=== PATIENT | female | born 1945 | race Caucasian/White ===

== ENCOUNTER 2017-01-09 07:36 | Inpatient (IN) | payer MEDICARE, MEDICAID ==
[2017-01-09] VITALS (12 sets, daily range): BP systolic 104–157; BP diastolic 42–67; PULSE 101–111; RESP 16–20; TEMP 97.4–98.1; O2SAT 91–98
[~2017-01-09] VITALS: Ht 157.5 cm; Wt 76.8 kg
[~2017-01-09 07:36] MED LIST: AMBI5TAB PO; CYMB30CA PO; DEPA500T3 PO; ERGO50000 PO; FIORTAB4 PO; LASI20TA PO; LORA-392 PO; LORA-474 PO; MELO15TA2 PO; OMEP20CA5 PO; PERC7.5T13 PO; PREM0.622 PO; SUCR1TAB6 PO; SYNT88TA PO
[2017-01-09] MEDS ORDERED: MOTR200T4 PO (08:03)
[2017-01-09] MEDS ORDERED: CLAR10CA3 PO (08:03)
[2017-01-09] MEDS ORDERED: LEVO-168 PO (08:03)
[2017-01-09] MEDS ORDERED: ATOR1TAB18 PO (08:03)
[2017-01-09] MEDS ORDERED: ZETI10TA5 PO (08:03)
[2017-01-09] MEDS ORDERED: OMEP40CA2 PO (08:03)
[2017-01-09] MEDS ORDERED: GABA300C5 PO (08:03)
[2017-01-09] MEDS ORDERED: RANI150T PO (08:03)
[2017-01-09] MEDS ORDERED: NAPR220T95 PO (08:03)
[2017-01-09] MEDS ORDERED: NAPR500T PO (08:03)
[2017-01-09] MEDS ORDERED: DIVA500T3 PO (08:03)
[2017-01-09] MEDS ORDERED: TIZA4CAP3 PO (08:03)
[2017-01-09] MEDS ORDERED: VENL75TA PO (08:03)
[2017-01-09] MEDS ORDERED: SODIUM CHLOR 0.9% 1000 ML INJ 1,000 ML IV ONE ×2 (08:30→09:30)
[2017-01-09] MEDS ORDERED: ONDANSETRON HCL 4 MG/2 ML VIAL IV PUSH ONE (08:30)
[2017-01-09] MEDS ORDERED: KETOROLAC TROMETHAMINE 30 MG/ML (IVP) VIAL IV PUSH ONE (08:30)
[2017-01-09] MEDS ORDERED: VANCOMYCIN INJ 1,000 MG in SODIUM CHLOR 0.9% 250 ML INJ 250 ML IV ONE (08:45)
[2017-01-09] MEDS ORDERED: AZTREONAM INJ 1,000 MG in SODIUM CHLORIDE 0.9% INJ 100 ML IV ONE (08:45)
--- NOTE | 2017-01-09 08:45 | PD ---
HPI Chief Complaint: Cold / Flu Symptoms Time Seen by Provider: 08:23 Travel History International Travel<30 days: No Contact w/Intl Traveler<30days: No Traveled to known affect area: No History of Present Illness HPI Patient is 71-year-old female presents emergency department for evaluation of right-sided chest pain, RUQ abdominal pain and shortness of breath. Patient states that several days ago she was trying to lift a heavy object and has been having gradually increasing pain since then. Patient states it hurts her whenever she takes a deep breath. Denies any fevers. Does have cough which has been dry. Denies similar symptoms in the past. She is going by her daughter who states that she has been fairly short of breath and unable to do much in the way of her activities of daily living. Symptoms had been rapidly worsening. She describes the pain is intense. PFSH Past Medical History Arthritis: Yes Bipolar Disorder: Yes Anxiety: Yes High Cholesterol: Yes COPD: Yes Respiratory: Yes (COPD) Thyroid Disease: Yes Influenza Vaccination: No ?: Not Menopausal: Yes Past Surgical History Section: Yes Hysterectomy: Yes Neurologic Surgery: Yes (L4-L5) Other Surgery: Yes (SYMPATHECTOMY) Social History Alcohol Use: No Tobacco Use: Yes (1 PPD) Substance Use: No Allergies-Medications (Allergen,Severity, Reaction): Coded Allergies: Morphine (Verified Allergy, Intermediate, HALLUCINATIONS, 01/09/17) Penicillin (Verified Allergy, Intermediate, RASH, 01/09/17) Prednisone (Verified Allergy, Intermediate, FACE SWELLS, 01/09/17) Valium (Verified Allergy, Mild, UNKNOWN, 01/09/17) Codeine (Verified Adverse Reaction, Intermediate, CONSTIPATION, 01/09/17) Uncoded Allergies: STEROIDS (Allergy, Intermediate, FACE SWELLS, 03/30/09) Reported Meds & Prescriptions Reported Meds & Active Scripts Active Reported Motrin Ib (Ibuprofen) 200 Mg Tab 400 Mg PO Q6H PRN Aleve (Naproxen Sodium) 220 Mg Tab 440 Mg PO BID PRN Effexor (Venlafaxine HCl) 75 Mg Tab 75 Mg PO DAILY Tizanidine (Tizanidine HCl) 4 Mg Cap 4 Mg PO BID Omeprazole 40 Mg Cap 40 Mg PO DAILY Divalproex ER (Divalproex Sodium) 500 Mg Tab 500 Mg PO TID Claritin (Loratadine) 10 Mg Cap 10 Mg PO DAILY Zetia (Ezetimibe) 10 Mg Tab 10 Mg PO DAILY Atorvastatin (Atorvastatin Calcium) 80 Mg Tab 80 Mg PO HS Ranitidine (Ranitidine HCl) 150 Mg Tab 150 Mg PO BID Naproxen 500 Mg Tab 500 Mg PO BID Levothyroxine (Levothyroxine Sodium) 112 Mcg Tab 112 Mcg PO DAILY Gabapentin 300 Mg Cap 300 Mg PO TID Review of Systems Except as stated in HPI: all other systems reviewed are Neg Physical Exam Narrative GENERAL: Well-developed, pale. SKIN: Warm and dry. HEAD: Atraumatic. Normocephalic. EYES: Pupils equal and round. No scleral icterus. No injection or drainage. ENT: No nasal bleeding or discharge. Mucous membranes pink and moist. NECK: Trachea midline. No JVD. CARDIOVASCULAR: Regular rhythm and tachycardic.. No murmur appreciated. 2+ bilateral equal pulses in all 4 extremities. No pedal edema. RESPIRATORY: No accessory muscle use. Right-sided basilar rales. Breath sounds equal bilaterally. GASTROINTESTINAL: Abdomen soft, non-tender, nondistended. Hepatic and splenic margins not palpable. MUSCULOSKELETAL: No obvious deformities. No clubbing. No cyanosis. No edema. NEUROLOGICAL: Awake and alert. No obvious cranial nerve deficits. Motor grossly within normal limits. Normal speech. PSYCHIATRIC: Appropriate mood and affect; insight and judgment normal. Data Data Last Documented VS Vital Signs Date Time Temp Pulse Resp B/P Pulse Ox O2 Delivery O2 Flow Rate FiO2 01/09/17 10:00 104 16 124/56 96 Nasal Cannula 4 01/09/17 07:50 97.4 Orders Electrocardiogram (01/09/17 08:28) Complete Blood Count With Diff (01/09/17 08:28) Comprehensive Metabolic Panel (01/09/17 08:28) Prothrombin Time / Inr (Pt) (01/09/17:28) Act Partial Throm Time (Ptt) (01/09/17 08:28) Lactic Acid Sepsis Protocol (01/09/17:28) Magnesium (Mg) (01/09/17 08:28) Phosphorus (Po4) (01/09/17 08:28) Lipase (01/09/17 08:28) Ckmb (Isoenzyme) Profile (01/09/17 08:28) Troponin I (01/09/17 08:28) Urinalysis - C+S If Indicated (01/09/17 08:28) Influenzae A/B Antigen (01/09/17 08:28) Blood Culture (01/09/17 08:28) Chest, Single Ap (01/09/17 08:28) Blood Glucose (01/09/17 08:28) Ecg Monitoring (01/09/17 08:28) Iv Access Insert/Monitor (01/09/17 08:28) Oximetry (01/09/17 08:28) Oxygen Administration (01/09/17 08:28) Ketorolac Inj (Toradol Inj) (01/09/17 08:30) Sodium Chlor 0.9% 1000 Ml Inj (Ns 1000 M (01/09/17 08:30) Ondansetron Inj (Zofran Inj) (01/09/17 08:30) Vancomycin Inj (Vancomycin Inj) (01/09/17 08:45) Aztreonam Inj (Azactam Inj) (01/09/17 08:45) Ct Pulmonary Angiogram (01/09/17 ) Ct Abd/Pel W Iv Contrast(Rout) (01/09/17 ) Sodium Chlor 0.9% 1000 Ml Inj (Ns 1000 M (01/09/17 09:30) Urine Culture (01/09/17 09:35) Iohexol 350 Inj (Omnipaque 350 Inj) (01/09/17 11:04) Admit Order (Ed Use Only) (01/09/17 ) Labs Laboratory Tests Test 01/09/17 01/09/17 08:50 09:35 White Blood Count 26.4 TH/MM3 Red Blood Count 4.18 MIL/MM3 Hemoglobin 11.1 GM/DL Hematocrit 35.2 % Mean Corpuscular Volume 84.3 FL Mean Corpuscular Hemoglobin 26.6 PG Mean Corpuscular Hemoglobin 31.6 % Concent Red Cell Distribution Width 15.9 % Platelet Count 653 TH/MM3 Mean Platelet Volume 7.6 FL Neutrophils (%) (Auto) 89.5 % Lymphocytes (%) (Auto) 6.9 % Monocytes (%) (Auto) 1.6 % Eosinophils (%) (Auto) 0.3 % Basophils (%) (Auto) 1.7 % Neutrophils # (Auto) 23.7 TH/MM3 Lymphocytes # (Auto) 1.8 TH/MM3 Monocytes # (Auto) 0.4 TH/MM3 Eosinophils # (Auto) 0.1 TH/MM3 Basophils # (Auto) 0.4 TH/MM3 CBC Comment AUTO DIFF Differential Total Cells 100 Counted Neutrophils % (Manual) 70 % Band Neutrophils % 14 % Lymphocytes % 8 % Monocytes % 2 % Eosinophils % 2 % Neutrophils # (Manual) 23.2 TH/MM3 Metamyelocytes 4 % Differential Comment FINAL DIFF MANUAL Platelet Estimate HIGH Platelet Morphology Comment HYPOGRAN Prothrombin Time 11.7 SEC Prothromb Time International 1.1 RATIO Ratio Activated Partial 28.9 SEC Thromboplast Time Sodium Level 137 MEQ/L Potassium Level 4.3 MEQ/L Chloride Level 100 MEQ/L Carbon Dioxide Level 24.4 MEQ/L Anion Gap 13 MEQ/L Blood Urea Nitrogen 17 MG/DL Creatinine 1.20 MG/DL Estimat Glomerular Filtration 45 ML/MIN Rate Random Glucose 149 MG/DL Lactic Acid Level 2.4 mmol/L Calcium Level 9.1 MG/DL Phosphorus Level 4.5 MG/DL Magnesium Level 2.0 MG/DL Total Bilirubin 0.8 MG/DL Aspartate Amino Transf 22 U/L (AST/SGOT) Alanine Aminotransferase 18 U/L (ALT/SGPT) Alkaline Phosphatase 174 U/L Total Creatine Kinase 20 U/L Troponin I LESS THAN 0.02 NG/ML Total Protein 7.9 GM/DL Albumin 1.9 GM/DL Lipase 95 U/L Urine Collection Type CATH Urine Color YELLOW Urine Turbidity MOD Urine pH 5.5 Urine Specific [place]geon 1.022 Urine Protein 30 mg/dL Urine Glucose (UA) NEG mg/dL Urine Ketones TRACE mg/dL Urine Occult Blood LARGE Urine Nitrite POS Urine Bilirubin NEG Urine Leukocyte Esterase LARGE Urine RBC 25-49 /hpf Urine WBC INNUM /hpf Urine WBC Clumps MANY Urine Bacteria MANY /hpf Microscopic Urinalysis Comment CATH-CULTURE IND Urine Collection Time 09:41 MDM Medical Decision Making Medical Screen Exam Complete: Yes Emergency Medical Condition: Yes Interpretation(s) EKG shows sinus tachycardia rate of 109, normal axis and normal R-wave progression. No concerning there is less than 1 mm depression in V4 through V6 in the ST segment. No elevations are seen. This is an abnormal EKG. Differential Diagnosis Pneumonia, flu, rib fracture. Narrative Course Patient roomed in emergency department, initially saturating 89 on room air and taking shallow respirations secondary to pain. She is given Toradol put on 4 L is cannula and saturations clemencia to 95%. Differential on arrival includes pulmonary embolism and pneumonia. Patient did state that she felt like her belly was hurting and wondered if she has appendicitis. The reason CT abdomen was ordered as well. CT abdomen does show an abdominal abscess just underneath the right diaphragm and posterior to the right kidney. This was discussed at length with Dr. Arana. The patient was then discussed with Dr. Torres of the interventional radiology service who states this is amenable to high or drainage. Discussed with Dr. Nicole for admission for sepsis UTI and an abdominal abscess. Dr. Nicole requests that the patient case at least be discussed with urology given that she does have urinary tract infection and this abscess is near the right kidney. Patient was discussed with Dr. Jansen who recommends placing a Dickson catheter in doing an IVP study prior to interventional radiology. Recommends that a drain be placed and not just percutaneous drainage. IVP study is been ordered, patient still having some pain and request something additional for pain. She does have a coded allergies to morphine which is hallucinations. Discussed with the patient that anything stronger than the Toradol she is are had will cause similar symptoms. She is willing to try morphine and I believe that this is reasonable. Critical Care Narrative Aggregate critical care time was 35 minutes. Time to perform other separately billable procedures was not included in the critical care time. My time did not include minutes spent treating any other patients simultaneously or on activities that did not directly contribute to the patient's treatment. The services I provided to this patient were to treat and/or prevent clinically significant deterioration that could result in: , disability, organ failure, renal failure, I provided critical care services requiring my management, as noted below: Chart data review, documentation time, medication orders and management, vital sign assessments/reviewing monitor data, ordering and reviewing lab tests, ordering and interpreting/reviewing x-rays and diagnostic studies, care of the patient and discussion of the patient with the admitting physicians. Diagnosis Primary Impression: Sepsis Qualified Code: A41.9 - Sepsis, due to unspecified organism Additional Impressions: Intra-abdominal abscess UTI (urinary tract infection) Admitting Information Admitting Physician Requests: Admit Condition: Stable Francisco Bledsoe MD Jan 09, 2017 08:45 Francisco Bledsoe MD Jan 09, 2017 08:45
[2017-01-09 09:09] LABS: AUTOMATED NEUTROPHIL # 23.7 TH/MM3 (1.8-7.7); BASOPHIL # 0.4 TH/MM3 (0-0.2); BASOPHIL % 1.7 % (0.0-2.0); EOSINOPHIL # 0.1 TH/MM3 (0-0.4); EOSINOPHIL % 0.3 % (0.0-4.0); HEMATOCRIT 35.2 % (35.0-46.0); LYMPH % 6.9 % (9.0-44.0); LYMPHOCYTE # 1.8 TH/MM3 (1.0-4.8); MEAN CELL VOLUME 84.3 FL (80.0-100.0); MEAN CORPUSCULAR HEMOGLOBIN 26.6 PG (27.0-34.0); MEAN CORPUSCULAR HGB CONC 31.6 % (32.0-36.0); MONO % 1.6 % (0.0-8.0); NEUT % 89.5 % (16.0-70.0); PLATELET COUNT 653 TH/MM3 (150-450); RED BLOOD COUNT 4.18 MIL/MM3 (4.00-5.30); RED CELL DISTRIBUTION WIDTH 15.9 % (11.6-17.2); WHITE BLOOD COUNT 26.4 TH/MM3 (4.0-11.0)
[2017-01-09 09:19] LABS: HEMO FLAGS AUTO DIFF
[2017-01-09 09:22] LABS: APTT (PATIENT) 28.9 SEC (24.3-30.1); INTERNATIONAL NORMALIZED RATIO 1.1 RATIO; PROTHROMBIN TIME - PATIENT 11.7 SEC (9.8-11.6)
[2017-01-09 09:37] LABS: BANDS 14 % (0-6); EOSINOPHILS 2 % (0-4); METAMYELOCYTES 4 % (0-1); NEUTROPHIL # MANUAL DIFF 23.2 TH/MM3 (1.8-7.7); PLATELET ESTIMATE SMEAR HIGH (NORMAL); PLATELET MORPHOLOGY HYPOGRAN (NORMAL); POLYS (SEG NEUTROPHILS) 70 % (16-70); SCAN/DIFF FINAL DIFF MANUAL; WBC DIFF SAMPLE 100
[2017-01-09 09:44] LABS: BLOOD, URINE LARGE (NEG); GLUCOSE,URINE NEG (NEG); KETONE, URINE TRACE mg/dL (NEG); PH, URINE 5.5 (5.0-8.5)
--- NOTE | 2017-01-09 09:46 | RADHPO ---
EXAM DATE/TIME: 01/09/2017 09:10 [facility] COMPARISON: No previous studies available for comparison. INDICATIONS : Right side chest pain and coughing. Strained right side lifting heavy object. MEDICAL HISTORY : Chronic obstructive pulmonary disease. SURGICAL HISTORY : None. ENCOUNTER: Initial ACUITY: 1 week PAIN SCORE: 8/10 LOCATION: Right chest FINDINGS: Small lung volumes with trace bibasilar atelectasis/vascular crowding. No infiltrate, effusion or pne umothorax. Heart size normal. Mild atherosclerotic plaque seen of the thoracic aorta. CONCLUSION: Mild bibasilar atelectasis. Som Alvarez MD on January 09, 2017 at 9:43 Board Certified Radiologist. This report was verified electronically.
[2017-01-09 09:54] LABS: NITRITE,URINE POS (NEG)
[2017-01-09 09:55] LABS: BACTERIA, URINE MANY /hpf; COMMENT (UR) CATH-CULTURE IND; CULTURE IF INDICATED CATH CULTURE IND; METHOD OF COLLECTION CATH; URINE COLOR YELLOW (YELLW/STRAW); WBC, URINE INNUM /hpf (0-5)
[2017-01-09 10:03] LABS: CHLORIDE 100 MEQ/L (98-107); POTASSIUM 4.3 MEQ/L (3.5-5.1); SODIUM (NA) 137 MEQ/L (136-145)
[2017-01-09 10:06] LABS: ANION GAP 13 MEQ/L (5-15); BICARBONATE 24.4 MEQ/L (21.0-32.0)
[2017-01-09 10:08] LABS: GLOMERULAR FILTRATION RATE 45 ML/MIN (>89)
[2017-01-09 10:09] LABS: AST (GOT) 22 U/L (15-37)
[2017-01-09 10:10] LABS: TOTAL BILIRUBIN ADULT 0.8 MG/DL (0.2-1.0)
[2017-01-09 10:11] LABS: ALKALINE PHOSPHATASE 174 U/L (45-117)
[2017-01-09 10:14] LABS: BLOOD UREA NITROGEN 17 MG/DL (7-18)
[2017-01-09 10:15] LABS: ALT (GPT) 18 U/L (10-53)
[2017-01-09 10:18] LABS: CREATINE KINASE 20 U/L (26-192)
[2017-01-09] MEDS ORDERED: IOHEXOL 350 MG/ML 10 ML VIAL (for RAD DIAG) IV ONE (11:04)
--- NOTE | 2017-01-09 11:26 | RADHPO ---
EXAM DATE/TIME: 01/09/2017 10:48 [facility] COMPARISON: CHEST SINGLE AP, January 09, 2017, 9:10. INDICATIONS : Right chest pain and cough. Evaluate for pulmonary embolism. IV CONTRAST: 70 cc Omnipaque 350 (iohexol) IV ; Cumulative dose for multiple exams. RADIATION DOSE: 10.76 CTDIvol (mGy) MEDICAL HISTORY : Chronic obstructive pulmonary disease. SURGICAL HISTORY : Hysterectomy. section.Orthopedic surgery. Sympathectomy. ENCOUNTER: Initial ACUITY: 1 day PAIN SCALE: 4/10 LOCATION: Right chest TECHNIQUE: Volumetric scanning of the chest was performed using a pulmonary embolism protocol MIP images were re constructed. Using automated exposure control and adjustment of the mA and/or kV according to patien t size, radiation dose was kept as low as reasonably achievable to obtain optimal diagnostic quality images. FINDINGS: There is no pulmonary embolus. Normal heart size. There is coronary artery calcification, most conspi cuous of the left anterior descending. Mild diffuse thickening of the interlobular septa of both lungs. Mild dependent atelectasis seen in the bases. There is a trace right pleural effusion. CONCLUSION: No pulmonary embolus. Trace failure suspected. Som Alvarez MD on January 09, 2017 at 11:24 Board Certified Radiologist. This report was verified electronically.
[2017-01-09 12:03] LABS: LACTIC ACID GHOST NOT REPORTABLE
--- NOTE | 2017-01-09 12:09 | RADHPO ---
EXAM DATE/TIME: 01/09/2017 10:48 [facility] COMPARISON: No previous studies available for comparison. INDICATIONS : Right upper quadrant pain. IV CONTRAST: 70 cc Omnipaque 350 (iohexol) IV ; Cumulative dose for multiple exams. ORAL CONTRAST: No oral contrast ingested. RADIATION DOSE: 15.43 CTDIvol (mGy) MEDICAL HISTORY : Chronic obstructive pulmonary disease. SURGICAL HISTORY : Hysterectomy. section. Orthopedic surgery. Sympathectomy. ENCOUNTER: Initial ACUITY: 1 day PAIN SCALE: 4/10 LOCATION: Right upper quadrant TECHNIQUE: Volumetric scanning of the abdomen and pelvis was performed. Using automated exposure control and ad justment of the mA and/or kV according to patient size, radiation dose was kept as low as reasonably achievable to obtain optimal diagnostic quality images. FINDINGS: LOWER LUNGS: The visualized lower lungs are clear. LIVER: Homogeneous density without lesion. There is no dilation of the biliary tree. There is a stone in t he gallbladder. SPLEEN: Normal size with questionable 7 mm low-density lesion at the superior aspect. PANCREAS: Within normal limits. KIDNEYS: The right kidney is displaced anteriorly and in the right perinephric space and posterior pararenal s pace there is a fluid density collection measuring approximately 6.2 x 6.0 x 9.6 cm. It extends throu gh the abdominal wall musculature and into the paraspinous muscles. It displaces the right kidney ant eriorly and may extend along the subcapsular space but does not clearly arise from the right kidney. Right kidney demonstrates normal enhancement. There is no hydronephrosis or stone. A low-density lesi on lower pole right kidney measuring 12 mm has features characteristic of a simple cyst. ADRENAL GLANDS: Within normal limits. VASCULAR: There is no aortic aneurysm. There is severe atherosclerotic disease. BOWEL/MESENTERY: The stomach, small bowel, and colon demonstrate no acute abnormality. There is no free intraperitone al air. There is trace perihepatic free fluid. ABDOMINAL WALL: Within normal limits. RETROPERITONEUM: There is no lymphadenopathy. BLADDER: No wall thickening or mass. REPRODUCTIVE: Within normal limits. INGUINAL: There is no lymphadenopathy or hernia. MUSCULOSKELETAL: There are degenerative changes of the lumbar spine. CONCLUSION: 1. There is a retroperitoneal low collection involving the perirenal and posterior pararenal spaces o n the right. It measures 6.2 x 6.0 x 9.6 cm and anteriorly displaces the right kidney. Imaging appear ance is suspicious for an abscess. There is associated small volume of perihepatic free fluid in the peritoneal space. The right kidney otherwise demonstrates no abnormality. 2. Nonacute findings include severe atherosclerotic disease and cholelithiasis. Som Ptetit MD on January 09, 2017 at 11:51 Board Certified Radiologist. This report was verified electronically.
[2017-01-09] MEDS ORDERED: SODIUM CHLORIDE 0.9% FLUSH 5 ML FLUSH FLUSH PRN (12:30)
[2017-01-09] MEDS ORDERED: NALOXONE HCL 0.4 MG/ML AMP IV PRN (12:30)
[2017-01-09] MEDS ORDERED: Vancomycin Consult Pharmacy 1 EA OTHER SCH (12:30)
[2017-01-09] MEDS: GABAPENTIN 300 MG CAP PO SCH ×2 (13:00→17:12)
[2017-01-09] MEDS ORDERED: KETOROLAC TROMETHAMINE 30 MG/ML (IVP) VIAL IV PUSH PRN (13:00)
[2017-01-09] MEDS: DOCUSATE SODIUM 100 MG CAP PO SCH ×2 (13:00→21:40)
[2017-01-09] MEDS: DIVALPROEX SODIUM E.R. 500 MG TAB PO SCH ×2 (13:00→17:12)
[2017-01-09] MEDS ORDERED: ACETAMINOPHEN 325 MG TAB PO PRN (13:00)
[2017-01-09] MEDS ORDERED: IOHEXOL 350 MG/ML 100 ML BTL (for RAD DIAG) IV ONE (13:00)
[2017-01-09] MEDS: SODIUM CHLOR 0.9% 1000 ML INJ 1,000 ML IV SCH ×2 (13:04→22:25)
[2017-01-09] MEDS: metroNIDAZOLE 500 MG INJ 100 ML IV SCH ×2 (13:09→21:38)
[2017-01-09] MEDS ORDERED: PILL SPLITTER OTHER PRN (13:15)
[2017-01-09] MEDS ORDERED: MORPHINE SULFATE 4 MG/ML INJ IV PUSH ONE (13:30)
--- NOTE | 2017-01-09 14:01 | HHI.HP ---
HPI Service [facility] Hospitalists Primary Care Physician Non-Staff Admission Diagnosis Sepsis, UTI, Abdominal Abscess. Diagnoses: Chief Complaint: Right sided abdominal/flank pain Chills Fatigue SOB Travel History International Travel<30 Days: No Contact w/Intl Traveler <30 Da: No Traveled to Known Affected Are: No Sepsis Criteria SIRS Criteria (2 or more): Heart rate over 90, WBC > 27961, < 4000 or > 10% bands Sepsis Criteria (SIRS+source): Infect source susp/known Severe Sepsis (+one): Lactate >2 Criteria Outcome: Meets severe sepsis criteria History of Present Illness This is a 71-year-old female with a past medical history significant for hypertension, COPD with ongoing tobacco use, dyslipidemia, hypothyroidism, bipolar disorder and anxiety who presents to [facility] ED with complaints of 7-10 day history of progressive right-sided flank and upper back pain as well as shortness of breath. She denies any recorded fever but states she has had chills. She denies any nausea or vomiting but does report decreased appetite and has not been drinking or eating her usual amount. She denies any anterior chest pain. Her pain is somewhat alleviated with her knees flexed in the position. She reports a chronic cough with whitish to yellow sputum production that is unchanged secondary to her COPD. She does not use oxygen at home. She continues smoke a pack per day. She reports injuring herself about 2 weeks ago after lifting a bag of dog food and developed subsequent right sided back pain. She states she has a history of recurrent bladder infections, usually occurring every 3-6 months but states she's not had one in quite some time. Previous L45 sympathectomy and states that she has lost most of her bladder sensation and therefore denies any urgency or dysuria. She has not noticed any blood in her urine. She's had some constipation for the past week since she started taking [id number] Advil to help with her right-sided flank and back pain. She denies any black, tarry or bloody stools. She has no diarrhea. She also reports for the past week that she's had non-postural episodes of dizziness that last just a few seconds before resolving, usually occurring 1-2 times per day. She denies any vision changes, syncope, chest pain or palpitations. In the ED, CT of the abdomen and pelvis reveals a 6.2 x 6.0 x 9.6 cm fluid collection involving the perirenal and posterior pararenal spaces on the right anteriorly displacing the right kidney and suspicious for an abscess. There is also noted to be a small volume of perihepatic free fluid in the peritoneal space. Patient flagged for sepsis in the ED with white count that s extremely elevated at 26.4, initial lactic acid of 2.4 and tachycardia. Follow up lactic acid is 2.0. Her creatinine is 1.20. Her UA is positive for protein, ketones, occult blood, nitrites, bacteria and large leukocytes. Review of Systems Constitutional: COMPLAINS OF: Fatigue ( ongoing for the past week), Chills (x one week), Dizziness (occurring 1-2x day for past week, lasts only few seconds) , Change in appetite (decreased ), DENIES: Fever Endocrine: DENIES: Polydipsia, Polyuria Eyes: DENIES: Blurred vision, Vision loss Ears, nose, mouth, throat: COMPLAINS OF: Running Nose (x 1 week), DENIES: Tinnitus, Hoarseness Respiratory: COMPLAINS OF: Cough (chronic, unchanged), Sputum production ( whitish to yellowish sputum, chronic, unchanged), Shortness of breath (x one week), DENIES: Hemoptysis Cardiovascular: COMPLAINS OF: Dyspnea on Exertion, Lower Extremity Edema ( occasional swelling in LLE, chronic), DENIES: Chest pain, Palpitations, Syncope , Orthopnea Gastrointestinal: COMPLAINS OF: Constipation (since taking Advil for the past week), DENIES: Abdominal pain, Black stools, Bloody stools, Diarrhea, Nausea, Vomiting Genitourinary: DENIES: Urgency, Hematuria, Dysuria Musculoskeletal: DENIES: Joint Swelling, Back pain, Neck pain Integumentary: DENIES: Pruritus, Rash Hematologic/lymphatic: DENIES: Lymphadenopathy Immunologic/allergic: DENIES: Urticaria Neurologic: DENIES: Headache, Localized weakness, Paresthesias, Poor Balance Psychiatric: COMPLAINS OF: Anxiety (chronic), DENIES: Confusion, Mood changes , Depression Past Family Social History Past Medical History COPD with continued tobacco use Hypothyroidism Dyslipidemia Hypertension Anxiety Bipolar Recurrent urinary tract infections, every 3-6 months History of uterine cancer 40 years ago status post hysterectomy GERD Peripheral neuropathy Past Surgical History Hysterectomy L45 sympathectomy Left knee arthroscopy Reported Medications Motrin Ib (Ibuprofen) 200 Mg Tab 400 Mg PO Q6H PRN Aleve (Naproxen Sodium) 220 Mg Tab 440 Mg PO BID PRN Effexor (Venlafaxine HCl) 75 Mg Tab 75 Mg PO DAILY Tizanidine (Tizanidine HCl) 4 Mg Cap 4 Mg PO BID Omeprazole 40 Mg Cap 40 Mg PO DAILY Divalproex ER (Divalproex Sodium) 500 Mg Tab 500 Mg PO TID Claritin (Loratadine) 10 Mg Cap 10 Mg PO DAILY Zetia (Ezetimibe) 10 Mg Tab 10 Mg PO DAILY Atorvastatin (Atorvastatin Calcium) 80 Mg Tab 80 Mg PO HS Ranitidine (Ranitidine HCl) 150 Mg Tab 150 Mg PO BID Naproxen 500 Mg Tab 500 Mg PO BID Levothyroxine (Levothyroxine Sodium) 112 Mcg Tab 112 Mcg PO DAILY Gabapentin 300 Mg Cap 300 Mg PO TID Allergies: Coded Allergies: Morphine (Verified Allergy, Intermediate, HALLUCINATIONS, 01/09/17) Penicillin (Verified Allergy, Intermediate, RASH, 01/09/17) Prednisone (Verified Allergy, Intermediate, FACE SWELLS, 01/09/17) Valium (Verified Allergy, Mild, UNKNOWN, 01/09/17) Codeine (Verified Adverse Reaction, Intermediate, CONSTIPATION, 01/09/17) Uncoded Allergies: STEROIDS (Allergy, Intermediate, FACE SWELLS, 03/30/09) Active Ordered Medications Current Medications Medications (Trade) Dose Ordered Sig/Ramiro Route Start Time Stop Time Status Last Admin Aztreonam 2000 mg/ Sodium Chloride 100 ml @ 200 mls/hr Q8H IV 01/09/17 18:00 Metronidazole 100 ml @ 100 mls/hr Q8H IV 01/09/17 13:00 01/09/17 13:09 Pharmacy Profile Note 0 ml @ 0 mls/hr UNSCH OTHER 01/09/17 12:30 (NS 1000 ml Inj) 1,000 ml @ 100 mls/hr Q10H IV 01/09/17 12:24 01/09/17 13:04 (NS Flush) 2 ml UNSCH PRN FLUSH 01/09/17 12:30 (NS Flush) 2 ml BID FLUSH 01/09/17 21:00 (Tylenol) 650 mg Q4HR PRN PO 01/09/17 13:00 (Colace) 100 mg Q12HR PO 01/09/17 13:00 (Milk Of Magnesia Liq) 30 ml Q12HR PRN PO 01/09/17 13:00 (Lovenox Inj) 40 mg Q24H SQ 01/09/17 21:00 (Angora 5-325 Mg) 1 tab Q4H PRN PO 01/09/17 12:30 (Angora 7.5-325 Mg) 1 tab Q4H PRN PO 01/09/17 12:30 (Dilaudid Pf Inj) 1 mg Q3HR PRN IV 01/09/17 14:00 (Narcan Inj) 0.4 mg UNSCH PRN IV 01/09/17 12:30 (Toradol Inj) 15 mg Q6H PRN IV PUSH 01/09/17 13:00 01/13/17 12:59 (Lipitor) 80 mg HS PO 01/09/17 21:00 (Depakote Er) 500 mg TID PO 01/09/17 13:00 (Zetia) 10 mg DAILY PO 01/10/17 09:00 (Neurontin) 300 mg TID PO 01/09/17 13:00 (Synthroid) 112 mcg DAILY@06 PO 01/10/17 06:00 (Claritin) 10 mg DAILY PO 01/10/17 09:00 (Pepcid) 10 mg BID PO 01/09/17 21:00 (Zanaflex) 4 mg BID PO 01/09/17 21:00 Venlafaxine HCl 75 mg 75 mg DAILY PO 01/10/17 09:00 (Vancomycin Inj/ NS 250 ml Inj) 250 ml @ 250 mls/hr Q24H IV 01/10/17 10:00 Miscellaneous Information SPECIFIC LAB TO BE DRAWN:VANCOMYCIN TROUGH DATE TO... ONCE ONCE XX 01/13/17 09:45 01/13/17 09:46 (Pill Splitter) 1 ea UNSCH PRN OTHER 01/09/17 13:15 Family History Father, , liver cancer Mother, , diabetes Family medical history also significant for breast cancer and coronary artery disease Social History Patient reports history of tobacco use of one pack per day for the past 50 years She denies any alcohol consumption or illicit drug use Physical Exam Vital Signs Vital Signs Date Time Temp Pulse Resp B/P Pulse Ox O2 Delivery O2 Flow Rate FiO2 01/09/17 12:30 106 16 127/65 91 Nasal Cannula 3 01/09/17 10:00 104 16 124/56 96 Nasal Cannula 4 01/09/17 08:50 111 16 157/67 98 Nasal Cannula 4 01/09/17 08:50 18 89 Nasal Cannula 4 01/09/17 08:45 89 Nasal Cannula 4 01/09/17 08:45 16 96 Nasal Cannula 4 01/09/17 07:50 97.4 107 18 139/59 92 Physical Exam GENERAL: This is a well-nourished, well-developed patient. She is ill-appearing , lying in position. A&Ox3. INAD. SKIN: No rashes, ecchymoses or lesions. Cool and dry. HEAD: Atraumatic. Normocephalic. No temporal or scalp tenderness. EYES: Pupils equal round and reactive. Extraocular motions intact. No scleral icterus. No injection or drainage. ENT: Nose without bleeding, purulent drainage or septal hematoma. Throat without erythema, tonsillar hypertrophy or exudate. Uvula midline. Airway patent. Dry mucus membranes. NECK: Trachea midline. No lymphadenopathy. Supple, nontender, no meningeal signs. CARDIOVASCULAR: Regular rate and rhythm without murmurs, gallops, or rubs. RESPIRATORY: Clear to auscultation. Basilar rales noted on the right. BS equally bilaterally. No wheezes, rales, or rhonchi. GASTROINTESTINAL: Abdomen soft and nondistended. No hepato-splenomegaly, or palpable masses. No guarding. (+)tenderness to palpation right side of lower lateral abdomen extending into flank. (+)right sided CVAT MUSCULOSKELETAL: Extremities without clubbing, cyanosis, or edema. No joint tenderness, effusion, or edema noted. No calf tenderness. NEUROLOGICAL: Awake and alert. Cranial nerves II through XII intact. Motor and sensory grossly within normal limits. Five out of 5 muscle strength in all muscle groups. Normal speech. Laboratory Laboratory Tests Test 01/09/17 01/09/17 01/09/17 08:50 09:35 12:19 White Blood Count 26.4 Red Blood Count 4.18 Hemoglobin 11.1 Hematocrit 35.2 Mean Corpuscular Volume 84.3 Mean Corpuscular Hemoglobin 26.6 Mean Corpuscular Hemoglobin 31.6 Concent Red Cell Distribution Width 15.9 Platelet Count 653 Mean Platelet Volume 7.6 Neutrophils (%) (Auto) 89.5 Lymphocytes (%) (Auto) 6.9 Monocytes (%) (Auto) 1.6 Eosinophils (%) (Auto) 0.3 Basophils (%) (Auto) 1.7 Neutrophils # (Auto) 23.7 Lymphocytes # (Auto) 1.8 Monocytes # (Auto) 0.4 Eosinophils # (Auto) 0.1 Basophils # (Auto) 0.4 CBC Comment AUTO DIFF Differential Total Cells 100 Counted Neutrophils % (Manual) 70 Band Neutrophils % 14 Lymphocytes % 8 Monocytes % 2 Eosinophils % 2 Neutrophils # (Manual) 23.2 Metamyelocytes 4 Differential Comment FINAL DIFF MANUAL Platelet Estimate HIGH Platelet Morphology Comment HYPOGRAN Prothrombin Time 11.7 Prothromb Time International 1.1 Ratio Activated Partial 28.9 Thromboplast Time Sodium Level 137 Potassium Level 4.3 Chloride Level 100 Carbon Dioxide Level 24.4 Anion Gap 13 Blood Urea Nitrogen 17 Creatinine 1.20 Estimat Glomerular Filtration 45 Rate Random Glucose 149 Lactic Acid Level 2.4 2.0 Calcium Level 9.1 Phosphorus Level 4.5 Magnesium Level 2.0 Total Bilirubin 0.8 Aspartate Amino Transf 22 (AST/SGOT) Alanine Aminotransferase 18 (ALT/SGPT) Alkaline Phosphatase 174 Total Creatine Kinase 20 Troponin I LESS THAN 0.02 Total Protein 7.9 Albumin 1.9 Lipase 95 Urine Collection Type CATH Urine Color YELLOW Urine Turbidity MOD Urine pH 5.5 Urine Specific Breeden 1.022 Urine Protein 30 Urine Glucose (UA) NEG Urine Ketones TRACE Urine Occult Blood LARGE Urine Nitrite POS Urine Bilirubin NEG Urine Leukocyte Esterase LARGE Urine RBC 25-49 Urine WBC INNUM Urine WBC Clumps MANY Urine Bacteria MANY Microscopic Urinalysis Comment CATH-CULTURE IND Urine Collection Time 09:41 Date/Time Procedure Status Source Growth 01/09/17 09:35 Urine Culture Received Urine Catheterized Urine Pending 01/09/17 08:55 Aerobic Blood Culture Received Blood Peripheral Pending 01/09/17 08:55 Anaerobic Blood Culture Received Blood Peripheral Pending 01/09/17 08:45 Influenza Types A,B Antigen (RYAN) - Final Complete Nasal Washing NEGATIVE FOR FLU A AND B ANTIGEN.... Result Diagram: 01/09/17 0850 01/09/17 0850 Imaging Last 48 hours Impressions Chest X-Ray 01/09/17 0828 Signed Impressions: Service Date/Time: Monday, January 09, 2017 09:10 - CONCLUSION: Mild bibasilar atelectasis. Som Alvarez MD CT Angiography 01/09/17 0000 Signed Impressions: Service Date/Time: Monday, January 09, 2017 10:48 - CONCLUSION: No pulmonary embolus. Trace failure suspected. Som Alvarez MD Abdomen/Pelvis CT 01/09/17 0000 Signed Impressions: Service Date/Time: Monday, January 09, 2017 10:48 - CONCLUSION: 1. There is a retroperitoneal low collection involving the perirenal and posterior pararenal spaces on the right. It measures 6.2 x 6.0 x 9.6 cm and anteriorly displaces the right kidney. Imaging appearance is suspicious for an abscess. There is associated small volume of perihepatic free fluid in the peritoneal space. The right kidney otherwise demonstrates no abnormality. 2. Nonacute findings include severe atherosclerotic disease and cholelithiasis. Som Pettit MD Septic Shock Reassessment Heart: Other (Tachycardic) Lungs: Other (right sided basilar rales) Skin: Warm, Dry Peripheral Pulses: Bounding Right Radial Bounding Left Radial Bounding Right Popliteal Bounding Left Popliteal Bounding Right Dorsalis Pedis Bounding Left Dorsalis Pedis Bounding Right Posterior Tibial Bounding Left Posterior Tibial Assessment and Plan Assessment and Plan 71-year-old female with a past medical history significant for hypertension, COPD with ongoing tobacco use, dyslipidemia, hypothyroidism, bipolar disorder and anxiety who presents to [facility] ED with complaints of 7-10 day history of progressive right-sided flank/abdominal pain and upper back pain as well as shortness of breath. Right sided Retroperitoneal perinephric abscess - Admit to inpatient - Consult Infectious disease - Consult Urology - IV abx with Vancomycin, Metronidazole and Azactam - IVP ordered in the ED - mera catheter - IR consulted by ED physician for possible drainage following IVP - IV pain meds and antiemetics prn - UA with reflex - follow up on blood, urine and abscess cx results UTI - h/o recurrent UTIs, every 3-6mos - IV antibiotics - follow up on urine cx results Sepsis - secondary to above - IV abx as above - repeat lactic acid level 2.0 - IVF resuscitation COPD - supplemental oxygen - Duonebs prn Thrombocytosis - likely reactive - recheck lab in am ODILON - IVF - avoid nephrotoxics - am labs to monitor Hypertension ppr - patient reports h/o HTN in history but no antihypertensives listed in med rec - good control at present - Continue to monitor BP Hypothyroidism - resume home Synthroid dose Dyslipidemia - resume home Zetia and Atorvastatin dose Anxiety/bipolar disorder - Resume home meds Peripheral neuropathy - resume home Gabapentin GERD - PPI DVT prophylaxis - BEBEs/SADIA gómez Discussed with Dr. Nicole Physician Certification 2 Midnight Certification Type: Admission for Inpatient Services Order for Inpatient Services The services are ordered in accordance with Medicare regulations or non- Medicare payer requirements, as applicable. In the case of services not specified as inpatient-only, they are appropriately provided as inpatient services in accordance with the 2-midnight benchmark. Estimated LOS (days): 3 3 days is the estimated time the patient will need to remain in the hospital, assuming treatment plan goals are met and no additional complications. Post-Hospital Plan: Not yet determined Carol Youssef Jan 09, 2017 14:01
--- NOTE | 2017-01-09 14:39 | RADHPO ---
EXAM DATE/TIME: 01/09/2017 13:22 [place] COMPARISON: CT ABDOMEN & PELVIS W CONTRAST, January 09, 2017, 10:48. INDICATIONS : Evaluate right renal abcess FLUORO TIME: 0 minutes IMAGE COUNT: 9 CONTRAST: 100 cc Omnipaque 350 [facility]iohexol) [id number] Exp Date: Oct 2019 Lot: Exp Date: MEDICAL HISTORY : Chronic obstructive pulmonary disease. SURGICAL HISTORY : Hysterectomy. C section ENCOUNTER: Initial ACUITY: 1 day PAIN SCORE: 5/10 LOCATION: Abdomen FINDINGS: Contrast is being excreted by both kidneys. Renal outlines are within normal limits. Collecting syste ms are within normal limits. Right ureter is slightly prominent along its entire length relative to t he left, nonspecific but there is a large amount of stool in the right side of the colon and extrinsi c mass effect possible. None of the excreted contrast is seen to leak in the right retrorenal fluid collection seen on today' s CT. CONCLUSION: 1. Slight degree of right hydroureter, etiology uncertain. 2. No leakage of the excreted contrast. Som Alvarez MD on January 09, 2017 at 14:29 Board Certified Radiologist. This report was verified electronically.
[2017-01-09] MEDS ORDERED: MIDAZOLAM HCL 2 MG/2 ML VIAL IV PUSH ONE (14:55)
[2017-01-09] MEDS ORDERED: LIDOCAINE 1%/EPINEPHrine 1:100,000 SOLN 30 ML VIAL OTHER ONE (15:00)
--- NOTE | 2017-01-09 15:15 | PD.RAD ---
Post Procedure Progress Note Pre Procedure Diagnosis: (1) Intra-abdominal abscess (2) Sepsis (3) UTI (urinary tract infection) Post Procedure Diagnosis: (1) Intra-abdominal abscess (2) Sepsis (3) UTI (urinary tract infection) Procedure Date: Jan 09, 2017 Supervising Radiologist: Greg Tillman Plan of Activity Patient to Unit: Other Patient Condition: Good Additional Comments: 10 Divehi drain placed into the abscess. 30cc of pus removed Catheter in good position See PACS Report for procedural detail/treatment Greg Tillman MD Jan 09, 2017 15:14
[2017-01-09] MEDS: SODIUM CHLORIDE 0.9% 10 ML VIAL IRRIGATION SCH (16:00)
[2017-01-09] MEDS: NICOTINE 21 MG/24 HR PATCH TD SCH (17:11)
[2017-01-09] MEDS: AZTREONAM INJ 2,000 MG in SODIUM CHLORIDE 0.9% INJ 100 ML IV SCH (17:12)
--- NOTE | 2017-01-09 18:26 | EKG ---
Date Performed: 01/09/2017 Time Performed: 08:43:48 PTAGE: 71 years EKG: Sinus tachycardia. Short VT interval ST junctional depression is nonspecific Borderline ECG NO PREVIOUS TRACING DOCTOR: Micah Amin Interpretating Date/Time 01/09/2017 18:24:41
[2017-01-09] MEDS: HYDROmorphone HCL PF 1 MG/ML VIAL IV PRN (18:56)
[2017-01-09] MEDS: SODIUM CHLORIDE 0.9% FLUSH 5 ML FLUSH FLUSH SCH (21:00)
[2017-01-09] MEDS: FAMOTIDINE 20 MG TAB PO SCH (21:40)
[2017-01-09] MEDS: ATORVASTATIN 40 MG TAB PO SCH (21:41)
[2017-01-09] MEDS: ENOXAPARIN SODIUM 40 MG/0.4 ML SYRINGE SQ SCH (21:42)
[2017-01-10] VITALS (8 sets, daily range): BP systolic 104–116; BP diastolic 53–61; PULSE 96–114; RESP 18–20; TEMP 97–98; O2SAT 92–95
[2017-01-10] MEDS: HYDROmorphone HCL PF 1 MG/ML VIAL IV PRN (00:11)
[2017-01-10] MEDS: AZTREONAM INJ 2,000 MG in SODIUM CHLORIDE 0.9% INJ 100 ML IV SCH ×3 (01:21→17:27)
[2017-01-10] MEDS: metroNIDAZOLE 500 MG INJ 100 ML IV SCH ×2 (05:20→12:35)
[2017-01-10] MEDS: LEVOTHYROXINE SODIUM 112 MCG TAB PO SCH (05:20)
[2017-01-10 06:30] LABS: AUTOMATED NEUTROPHIL # 22.4 TH/MM3 (1.8-7.7); EOSINOPHIL # 0.1 TH/MM3 (0-0.4); EOSINOPHIL % 0.2 % (0.0-4.0); HEMATOCRIT 25.3 % (35.0-46.0); LYMPH % 6.4 % (9.0-44.0); LYMPHOCYTE # 1.6 TH/MM3 (1.0-4.8); MEAN CELL VOLUME 83.3 FL (80.0-100.0); MEAN CORPUSCULAR HEMOGLOBIN 26.9 PG (27.0-34.0); MEAN CORPUSCULAR HGB CONC 32.3 % (32.0-36.0); MONO % 5.7 % (0.0-8.0); NEUT % 87.7 % (16.0-70.0); PLATELET COUNT 514 TH/MM3 (150-450); RED BLOOD COUNT 3.04 MIL/MM3 (4.00-5.30); WHITE BLOOD COUNT 25.6 TH/MM3 (4.0-11.0)
[2017-01-10 06:39] LABS: POTASSIUM 4.8 MEQ/L (3.5-5.1)
[2017-01-10 06:48] LABS: BICARBONATE 19.8 MEQ/L (21.0-32.0)
[2017-01-10 07:14] LABS: HEMO FLAGS AUTO DIFF
[2017-01-10 07:54] LABS: BANDS 51 % (0-6); METAMYELOCYTES 4 % (0-1); MYELOCYTES 2 % (0-0); NEUTROPHIL # MANUAL DIFF 22.5 TH/MM3 (1.8-7.7); POLYS (SEG NEUTROPHILS) 31 % (16-70); WBC DIFF SAMPLE 100
[2017-01-10 07:55] LABS: PLATELET ESTIMATE SMEAR HIGH (NORMAL); PLATELET MORPHOLOGY NORMAL (NORMAL); SCAN/DIFF FINAL DIFF MANUAL
--- NOTE | 2017-01-10 08:17 | MB ---
cc: MELI GAMINO MD DATE OF CONSULTATION 01/09/[address] Nicole REASON FOR CONSULTATION Sepsis, perinephric abscess, UTI. HISTORY OF PRESENT ILLNESS This is a 71-year-old white female who presented to the emergency department here at [facility] with right-sided chest pain along with right upper quadrant abdominal pain and shortness of breath. The patient notes that she had lifted a heavy object favoring her right side and placed into her vehicle. She noted that after that she started having the pain. The pain was worse when she took a deep breath. She came to the emergency department to be evaluated and had heart rate of 104 and her white blood cell count was 26.4. She was also had to have many white blood cells in the urine. The patient was evaluated and admitted to the hospital started on antibiotics. A CT scan of the abdomen and pelvis showed the collection in the retroperitoneal region involving the perirenal and posterior pararenal space on the right. This was suspicious for an abscess. The patient was evaluated and taken to special procedures and she underwent drainage of that fluid collection and placement of the drainage catheter which has a rust red colored drainage. Culture was sent. Blood cultures were also sent today. The patient was admitted to the hospital today. Currently she feels achy on the right side of the abdomen and she also stated that she feels cold and chilly. She notes to me that she was also having episodes of sweats prior to admission. The patient notes that these symptoms were going on for about a week before she came to the emergency department for evaluation PAST MEDICAL HISTORY 1. COPD 2. Tobacco abuse 3. Hypothyroidism 4. Hypertension 5. Anxiety disorder 6. Bipolar disorder 7. Dyslipidemia 8. History of frequent urinary infections. 9. History of uterine cancer 40 years ago. 10. History of back surgery. 11. History of L4-L5 sympathectomy. 12. Gastroesophageal reflux disease 13. Peripheral neuropathy 14. Left knee endoscopy ALLERGIES PENICILLIN, PREDNISONE, MORPHINE, CODEINE, STEROIDS, VALIUM. MEDICATIONS 1. Vancomycin 2. Zetia 3. Claritin 4. Effexor XR 5. Synthroid 6. Lovenox 7. Lipitor 8. Pepcid 9. Zanaflex 10. Aztreonam 11. Metronidazole 12. Depakote 13. Neurontin 14. Toradol SOCIAL HISTORY The patient smokes a pack of cigarettes a day. She has been a smoker for approximately 50 years. No alcohol. No illicit drugs. FAMILY HISTORY Noncontributory REVIEW OF SYSTEMS CONSTITUTIONAL: Significant for chills, fatigue, decreased appetite, and sweats. HEAD, EYES, EARS, NOSE, AND THROAT: No difficulty with vision. No blurring or diplopia. The patient denies difficulty swallowing or soreness of the throat. No nasal bleeding or discharge. RESPIRATORY: Significant for cough and chest discomfort with coughing. No hemoptysis. CARDIOVASCULAR: No palpitations. GASTROINTESTINAL: Significant for constipation. No diarrhea, nausea or vomiting. GENITOURINARY: No urgency, frequency or dysuria. MUSCULOSKELETAL: Significant for pain in the right flank region. INTEGUMENTARY: No skin rash or itching. Not pruritic. No easy bruising or bleeding. NEUROLOGIC: No problems with coordination, balance or gait. PSYCHIATRIC: Denies confusion or mood changes. PHYSICAL EXAMINATION This is a thin female who is in no acute distress. She is awake and alert and oriented. VITAL SIGNS: Include temperature of 97.4, BP 127/65, respirations 69, heart rate 106. HEENT: Extraocular movements grossly intact, pupils reactive to light. No icterus. Oropharynx has no visible lesions. Mucosa is moist. NECK: Supple without adenopathy or swelling. LUNGS: The lungs have clear breath sounds. HEART: Regular rate and rhythm without murmurs, rubs or gallops. ABDOMEN: Bowel sounds present, soft, no tenderness appreciated. The patient has a catheter that exits the left flank area and it has reddish rust colored drainage. RECTAL: Not performed. EXTREMITIES: No clubbing or cyanosis or edema. SKIN: No diffuse rash. NEUROLOGIC: No gross focal findings. PSYCH: The patient is calm and cooperative. LABORATORY DATA WBC 26.4, platelet 368, 89% neutrophils, 6% lymphocytes, hemoglobin 11.1, differential includes 14% bands. Creatinine 1.20, BUN 17, sodium 137, estimated GFR is 45. Urine culture is pending. IMPRESSION 1. Retroperitoneal abscess. 2. Urinary tract infection 3. Sepsis indicated by tachycardia, leukocytosis, source of infection likely urine and also retroperitoneal abscess. 4. Acute kidney disease RECOMMENDATIONS 1. Continue Aztreonam 2. Continue vancomycin 3. Monitor the cultures 4. Monitor temperature and white blood cell count 5. Follow urine function Thank you this consultation. The patient's progress will be followed and further additional recommendations will be given on followup if indicated. Meli Gamino MD FD/PHILLIP /4:50 PM /7:40 AM ANDRES
[2017-01-10] MEDS: SODIUM CHLORIDE 0.9% FLUSH 5 ML FLUSH FLUSH SCH ×2 (08:36→21:00)
[2017-01-10] MEDS: SODIUM CHLOR 0.9% 1000 ML INJ 1,000 ML IV SCH (08:36)
[2017-01-10] MEDS: LORATADINE 10 MG TAB PO SCH (08:37)
[2017-01-10] MEDS: DOCUSATE SODIUM 100 MG CAP PO SCH ×2 (08:38→21:02)
[2017-01-10] MEDS: DIVALPROEX SODIUM E.R. 500 MG TAB PO SCH ×3 (08:38→17:27)
[2017-01-10] MEDS: VENLAFAXINE HCL XR 75 MG CAP PO SCH (08:39)
[2017-01-10] MEDS: GABAPENTIN 300 MG CAP PO SCH ×2 (08:39→21:01)
[2017-01-10] MEDS: ACETAMINOPHEN/HYDROcodone 325 MG/7.5 MG TAB PO PRN ×2 (08:40→12:35)
[2017-01-10] MEDS: FAMOTIDINE 20 MG TAB PO SCH ×2 (08:40→21:02)
[2017-01-10] MEDS: EZETIMIBE 10 MG TAB PO SCH (08:40)
[2017-01-10] MEDS: REMOVE OLD PATCH TD SCH (08:41)
[2017-01-10] MEDS: NICOTINE 21 MG/24 HR PATCH TD SCH (08:41)
[2017-01-10] MEDS: MAGNESIUM HYDROXIDE SUSP 30 ML CUP PO PRN (08:45)
[2017-01-10] MEDS ORDERED: PANTOPRAZOLE SOD 40 MG DELAYED RELEASE TAB PO SCH (09:00)
[2017-01-10] MEDS ORDERED: VANCOMYCIN 1,000 MG/NS 250 ML IV SCH ×2 (10:00)
--- NOTE | 2017-01-10 11:33 | HHI.PR ---
Subjective Remarks Follow-up patient with right-sided retroperitoneal perinephric abscess. Patient reports that she feels much better today. Only complaint is intermittent cough which is chronic. No fever. No nausea/vomiting. Right- sided lumbo-abdominal pain much improved. Tolerating diet. Objective Vitals Vital Signs Date Time Temp Pulse Resp B/P Pulse Ox O2 Delivery O2 Flow Rate FiO2 01/10/17 08:54 92 3.00 01/10/17 08:00 98.0 106 20 116/55 92 01/10/17 00:51 18 01/10/17 00:00 98.0 114 20 111/55 92 01/09/17 20:00 97.6 108 20 104/57 92 01/09/17 20:00 109 01/09/17 19:55 94 Nasal Cannula 3.00 01/09/17 17:00 98.1 107 18 117/58 95 01/09/17 16:30 103 18 107/44 95 01/09/17 16:00 101 16 121/42 94 01/09/17 15:42 97.6 108 16 118/57 95 01/09/17 12:30 106 16 127/65 91 Nasal Cannula 3 I/O 01/09/17 01/09/17 01/09/17 01/10/17 01/10/17 01/10/17 07:00 15:00 23:00 07:00 15:00 23:00 Intake Total 2350 ml 1890 ml 240 ml Output Total 230 ml 400 ml Balance 2350 ml 1660 ml -160 ml Intake Oral 690 ml 240 ml IV Total 2350 ml 1200 ml Output Urine Total 400 ml Drainage Total 130 ml Other 100 ml # Voids 1 4 1 # Bowel Movements 0 1 Result Diagram: 01/10/17 0550 01/10/17 0550 Imaging Last 48 hours Impressions Chest X-Ray 01/09/17 0828 Signed Impressions: Service Date/Time: Monday, January 09, 2017 09:10 - CONCLUSION: Mild bibasilar atelectasis. Som Alvarez MD Urogram 01/09/17 0000 Signed Impressions: Service Date/Time: Monday, January 09, 2017 13:22 - CONCLUSION: 1. Slight degree of right hydroureter, etiology uncertain. 2. No leakage of the excreted contrast. Som Alvarez MD CT Angiography 01/09/17 0000 Signed Impressions: Service Date/Time: Monday, January 09, 2017 10:48 - CONCLUSION: No pulmonary embolus. Trace failure suspected. Som Alvarez MD Abdomen/Pelvis CT 01/09/17 0000 Signed Impressions: Service Date/Time: Monday, January 09, 2017 10:48 - CONCLUSION: 1. There is a retroperitoneal low collection involving the perirenal and posterior pararenal spaces on the right. It measures 6.2 x 6.0 x 9.6 cm and anteriorly displaces the right kidney. Imaging appearance is suspicious for an abscess. There is associated small volume of perihepatic free fluid in the peritoneal space. The right kidney otherwise demonstrates no abnormality. 2. Nonacute findings include severe atherosclerotic disease and cholelithiasis. oSm Pettit MD Objective Remarks GENERAL: Well-nourished, well-developed patient in [facility]. Much less ill- appearing today. SKIN: Warm and dry. No rash. HEAD: Normocephalic. Atraumatic. EYES: Pupils equal and round. No scleral icterus. No injection or drainage. ENT: No nasal bleeding or discharge. Mucous membranes pink and moist. NECK: Supple. Trachea midline. CARDIOVASCULAR: Tachycardic. S1, S2 noted. No murmur appreciated. RESPIRATORY: Breath sounds diminished bilaterally. Little air movement appreciated. No accessory muscle involvement. GASTROINTESTINAL: Abdomen soft, non-tender, nondistended. Normoactive bowel sounds x4. Drain in place. MUSCULOSKELETAL: No obvious deformities. Extremities without clubbing, cyanosis , or edema. NEUROLOGICAL: Awake and alert. No obvious cranial nerve deficits. Motor grossly within normal limits. 5/5 muscle strength in bilateral upper and lower extremities. Normal speech. PSYCHIATRIC: Appropriate mood and affect; insight and judgment normal. Medications and IVs Current Medications Medications (Trade) Dose Ordered Sig/Ramiro Route Start Time Stop Time Status Last Admin Aztreonam 2000 mg/ Sodium Chloride 100 ml @ 200 mls/hr Q8H IV 01/09/17 18:00 01/10/17 08:41 Metronidazole 100 ml @ 100 mls/hr Q8H IV 01/09/17 13:00 01/10/17 05:20 Pharmacy Profile Note 0 ml @ 0 mls/hr UNSCH OTHER 01/09/17 12:30 (NS 1000 ml Inj) 1,000 ml @ 100 mls/hr Q10H IV 01/09/17 12:24 01/10/17 08:36 (NS Flush) 2 ml UNSCH PRN FLUSH 01/09/17 12:30 (NS Flush) 2 ml BID FLUSH 01/09/17 21:00 (Tylenol) 650 mg Q4HR PRN PO 01/09/17 13:00 (Colace) 100 mg Q12HR PO 01/09/17 13:00 01/10/17 08:38 (Milk Of Magnbernarda Liq) 30 ml Q12HR PRN PO 01/09/17 13:00 01/10/17 08:45 (Lovenox Inj) 40 mg Q24H SQ 01/09/17 21:00 01/09/17 21:42 (Golf 5-325 Mg) 1 tab Q4H PRN PO 01/09/17 12:30 (Golf 7.5-325 Mg) 1 tab Q4H PRN PO 01/09/17 12:30 01/10/17 08:40 (Dilaudid Pf Inj) 1 mg Q3HR PRN IV 01/09/17 14:00 01/10/17 00:11 (Narcan Inj) 0.4 mg UNSCH PRN IV 01/09/17 12:30 (Toradol Inj) 15 mg Q6H PRN IV PUSH 01/09/17 13:00 01/13/17 12:59 01/09/17 17:15 (Lipitor) 80 mg HS PO 01/09/17 21:00 01/09/17 21:41 (Depakote Er) 500 mg TID PO 01/09/17 13:00 01/10/17 08:38 (Zetia) 10 mg DAILY PO 01/10/17 09:00 01/10/17 08:40 (Synthroid) 112 mcg DAILY@06 PO 01/10/17 06:00 01/10/17 05:20 (Claritin) 10 mg DAILY PO 01/10/17 09:00 01/10/17 08:37 (Pepcid) 10 mg BID PO 01/09/17 21:00 01/10/17 08:40 (Zanaflex) 4 mg BID PO 01/09/17 21:00 01/10/17 08:40 Venlafaxine HCl 75 mg 75 mg DAILY PO 01/10/17 09:00 01/10/17 08:39 (Vancomycin Inj/ NS 250 ml Inj) 250 ml @ 250 mls/hr Q24H IV 01/10/17 10:00 01/10/17 10:46 Miscellaneous Information SPECIFIC LAB TO BE DRAWN:VANCOMYCIN TROUGH DATE TO... ONCE ONCE XX 01/13/17 09:45 01/13/17 09:46 (Pill Splitter) 1 ea UNSCH PRN OTHER 01/09/17 13:15 (Habitrol 21 Mg Patch.24 Hr) 1 patch DAILY TD 01/09/17 16:00 01/10/17 08:41 (NS Inj) 10 ml DAILY@1600 IRRIGATION 01/09/17 16:00 Miscellaneous Information 1 DAILY TD 01/10/17 09:00 01/10/17 08:41 (Flu (Quadrivalent) Vaccine Inj) 0.5 ml ONCE ONCE IM 01/11/17 10:00 01/11/17 10:01 (Neurontin) 300 mg BID PO 01/10/17 21:00 A/P Assessment and Plan 71-year-old female with a past medical history significant for hypertension, COPD with ongoing tobacco use, dyslipidemia, hypothyroidism, bipolar disorder and anxiety who presents to [facility] ED with complaints of 7-10 day history of progressive right-sided flank/abdominal pain and upper back pain as well as shortness of breath. Right sided Retroperitoneal perinephric abscess - Status post IR procedure yesterday 30 cc of pus removed and drain left in place - Infectious disease following, very much appreciate their assistance - Urology consulted - Continue with IV abx with Vancomycin, Metronidazole and Azactam, await culture results - Continue with IV pain meds and antiemetics prn - follow up on blood, urine and abscess cx results UTI - UA highly suggestive of UTI - h/o recurrent UTIs, every 3-6mos - IV antibiotics - follow up on urine cx results Sepsis - secondary to above - IV abx as above - repeat lactic acid level 2.0 - IVF resuscitation - ESR 4, CRP 24.7 COPD - supplemental oxygen - Duonebs prn Thrombocytosis - likely reactive - Trending down - recheck lab in am ODILON - Improving, 1.20 -> 1.10 - d/c IVF - avoid nephrotoxics - am labs to monitor Hypertension ppr - patient reports h/o HTN in history but no antihypertensives listed in med rec - good control at present, no indication to initiate antihypertensive therapy - Continue to monitor BP Hypothyroidism - Continue with home Synthroid dose Dyslipidemia - Continue with home Zetia and Atorvastatin dose Anxiety/bipolar disorder - Continue home meds Peripheral neuropathy - resume home Gabapentin Generalized deconditioning - Lengthy discussion with daughter at the bedside. Patient will be relocating from [facility] to live with her daughter locally following her discharge. - PT eval/tx - Case management consult to assist with discharge planning, home health care/PT GERD - PPI DVT prophylaxis - SCDs/SADIA gómez Written by Carol Youssef PA-C acting as scribe for Dr. Nicole on 01/10/17 at 11:46. Discharge Planning [facility] with daughter anticipated Attending Statement All or portions of this note were transcribed by zuhair Medina. I, Dr. Caro Nicole personally performed the history, physical exam, and medical decision making; and confirmed the accuracy of the information in the transcribed note. Authenticated by Dr. Caro Nicole on 01/10/17 at 12:35. Carol Youssef Jan 10, 2017 11:33 Caro Nicole MD Jan 10, 2017 12:36
[2017-01-10] MEDS ORDERED: ALUMINUM/MAGNESIUM/SIMETH 30 ML CUP PO PRN (12:15)
[2017-01-10 12:45] LABS: CALCIUM-PROTEIN CORRECTED 8.5 MG/DL (8.5-10.1)
[2017-01-10] MEDS: RESP: ALBUTEROL 2.5 MG/IPRATROPIUM 0.5 MG NEB (SCH) NEB ×2 (13:23→20:35)
--- NOTE | 2017-01-10 13:49 | PD.CONS ---
[facility] Service Urology Consult Requested By Primary Care Physician Non-Staff Diagnosis: History of Present Illness 71 y.o. female presents with 2 week h/o worsening right sided flank pain. Patient states that she has not had fever at home but is noted chills. She states she has a history of recurrent urinary tract infections which to occur every 3-6 months. In the past she is undergone a sympatheticectomy due to her history of chronic back pain and after the operation she did notice some decreased sensation to her bladder. She states that she does get the urge to void but does have urinary incontinence between voids. She wears diapers and changes them 4 times a day. She denies any history of stone disease. She does state she had a history of recurrent urinary tract infections as a child. She denies having any recent episodes of pyelonephritis. She is a chronic smoker with a history of COPD. Approximately 2 weeks ago she states that she was lifting up a bag of dog food and started to have right flank pain shortly thereafter. The pain persisted over last 2 weeks and then became worse until she presented to the emergency room. CT scan emergency room showed a 6 x 9cm abscess in the right retroperitoneal region behind the right kidney. Follow-up IVP study showed good drainage of contrast without any evidence of extravasation or a forniceal rupture. No evidence of any stones were identified. Yesterday she underwent IR drainage of perinephric abscess and is presently feeling better. Review of Systems Eyes: DENIES: Blurred vision Ears, nose, mouth, throat: DENIES: Tinnitus Respiratory: COMPLAINS OF: Shortness of breath, DENIES: Apneas Cardiovascular: DENIES: Chest pain Gastrointestinal: COMPLAINS OF: Abdominal pain Genitourinary: COMPLAINS OF: Urinary incontinence, Urgency Musculoskeletal: COMPLAINS OF: Joint pain Integumentary: DENIES: Abnormal pigmentation Hematologic/lymphatic: DENIES: Bruising Immunologic/allergic: DENIES: Eczema Neurologic: DENIES: Abnormal gait Psychiatric: COMPLAINS OF: Anxiety Past Family Social History Past Medical History COPD Recurrent urinary tract infections Anxiety Chronic low back pain Hypertension, lipidemia History of uterine cancer Hypothyroidism Past Surgical History Total abdominal hysterectomy Left knee surgery Low back surgery Sympatheticectomy Allergies: Coded Allergies: Morphine (Verified Allergy, Intermediate, HALLUCINATIONS, 01/09/17) Penicillin (Verified Allergy, Intermediate, RASH, 01/09/17) Prednisone (Verified Allergy, Intermediate, FACE SWELLS, 01/09/17) Valium (Verified Allergy, Mild, UNKNOWN, 01/09/17) Codeine (Verified Adverse Reaction, Intermediate, CONSTIPATION, 01/09/17) Uncoded Allergies: STEROIDS (Allergy, Intermediate, FACE SWELLS, 03/30/09) Family History Lung cancer Social History Heavy smoker for many years ETOH only on occasion Physical Exam Vital Signs Vital Signs Date Time Temp Pulse Resp B/P Pulse Ox O2 Delivery O2 Flow Rate FiO2 01/10/17 12:00 97.2 96 20 104/59 95 01/10/17 08:54 92 3.00 01/10/17 08:00 98.0 106 20 116/55 92 01/10/17 00:51 18 01/10/17 00:00 98.0 114 20 111/55 92 01/09/17 20:00 97.6 108 20 104/57 92 01/09/17 20:00 109 01/09/17 19:55 94 Nasal Cannula 3.00 01/09/17 17:00 98.1 107 18 117/58 95 01/09/17 16:30 103 18 107/44 95 01/09/17 16:00 101 16 121/42 94 01/09/17 15:42 97.6 108 16 118/57 95 Physical Exam GENERAL: This is a well-nourished, well-developed patient, in no apparent distress. SKIN: No rashes, ecchymoses or lesions. Cool and dry. HEAD: Atraumatic. Normocephalic. No temporal or scalp tenderness. EYES: Pupils equal round and reactive. Extraocular motions intact. No scleral icterus. No injection or drainage. ENT: Nose without bleeding, purulent drainage or septal hematoma. Throat without erythema, tonsillar hypertrophy or exudate. Uvula midline. Airway patent. NECK: Trachea midline. No JVD or lymphadenopathy. Supple, nontender, no meningeal signs. CARDIOVASCULAR: Regular rate and rhythm without murmurs, gallops, or rubs. RESPIRATORY: Clear with diminished breath sounds; equal bilaterally. Few wheezes noted. GASTROINTESTINAL: Abdomen soft, non-tender, nondistended. No hepato-splenomegaly , or palpable masses. No guarding. GENITOURINARY: Right CVA tenderness with of percutaneous drain in place MUSCULOSKELETAL: Extremities without clubbing, cyanosis, or edema. No joint tenderness, effusion, or edema noted. No calf tenderness. Negative Homans sign bilaterally. NEUROLOGICAL: Awake and alert. Cranial nerves II through XII intact. Motor and sensory grossly within normal limits. Five out of 5 muscle strength in all muscle groups. Normal speech. Laboratory Laboratory Tests Test 01/10/17 05:50 White Blood Count 25.6 Red Blood Count 3.04 Hemoglobin 8.2 Hematocrit 25.3 Mean Corpuscular Volume 83.3 Mean Corpuscular Hemoglobin 26.9 Mean Corpuscular Hemoglobin 32.3 Concent Red Cell Distribution Width 15.0 Platelet Count 514 Mean Platelet Volume 7.3 Neutrophils (%) (Auto) 87.7 Lymphocytes (%) (Auto) 6.4 Monocytes (%) (Auto) 5.7 Eosinophils (%) (Auto) 0.2 Basophils (%) (Auto) 0.0 Neutrophils # (Auto) 22.4 Lymphocytes # (Auto) 1.6 Monocytes # (Auto) 1.5 Eosinophils # (Auto) 0.1 Basophils # (Auto) 0.0 CBC Comment AUTO DIFF Differential Total Cells 100 Counted Neutrophils % (Manual) 31 Band Neutrophils % 51 Lymphocytes % 8 Monocytes % 4 Neutrophils # (Manual) 22.5 Metamyelocytes 4 Myelocytes 2 Differential Comment FINAL DIFF MANUAL Platelet Estimate HIGH Platelet Morphology Comment NORMAL Sodium Level 133 Potassium Level 4.8 Chloride Level 103 Carbon Dioxide Level 19.8 Anion Gap 10 Blood Urea Nitrogen 21 Creatinine 1.10 Estimat Glomerular Filtration 49 Rate Random Glucose 95 Calcium Level 7.7 Protein Corrected Calcium 8.5 Total Protein 5.7 Date/Time Procedure Status Source Growth 01/09/17 15:15 Gram Stain - Final Resulted Abscess Other 01/09/17 15:15 Wound Culture - Preliminary Resulted Gram Negative Jacob 01/09/17 15:15 Fungal Smear Received Abscess Other Pending 01/09/17 15:15 Fungal Culture Received Abscess Other Pending 01/09/17 15:15 Acid Fast Stain Received Abscess Other Pending 01/09/17 15:15 Mycobacterial Culture Received Abscess Other Pending 01/09/17 09:35 Urine Culture - Preliminary Resulted Urine Catheterized Urine Gram Negative Jacob 01/09/17 08:55 Aerobic Blood Culture - Preliminary Resulted Blood Peripheral NO GROWTH IN 1 DAY 01/09/17 08:55 Anaerobic Blood Culture - Preliminary Resulted Blood Peripheral NO GROWTH IN 1 DAY 01/09/17 08:45 Influenza Types A,B Antigen (RYAN) - Final Complete Nasal Washing NEGATIVE FOR FLU A AND B ANTIGEN.... Result Diagram: 01/10/1750 01/10/1750 Assessment and Plan Assessment and Plan 71-year-old female with right retroperitoneal abscess of unclear etiology. No evidence of extravasation on IVP without stones identified. Gram-negative jacob urine culture noted. Continue IV antibiotics Maintain right percutaneous drainage Recommend reimaging with CT scan in 3-4 days TB cultures pending. No intervention required at this point in time. Thank you for the consult and for allowing me to precipitate in the care of this patient. Dilan Jansen DO Jan 10, 2017 13:49
[2017-01-10] MEDS: SODIUM CHLORIDE 0.9% 10 ML VIAL IRRIGATION SCH (16:00)
--- NOTE | 2017-01-10 16:03 | HHI.IDPN ---
Note Infectious Disease Note Patient notes chils earlier. Reports itching after receiving Vancomycin. No rash. Afebrile. Feels r. flank pressure. Abscess fluid culture has gram neg mayur. The patient notes that these symptoms were going on for about a week before she came to the emergency department for evaluation PAST MEDICAL HISTORY 1. COPD 2. Tobacco abuse 3. Hypothyroidism 4. Hypertension 5. Anxiety disorder 6. Bipolar disorder 7. Dyslipidemia 8. History of frequent urinary infections. 9. History of uterine cancer 40 years ago. 10. History of back surgery. 11. History of L4-L5 sympathectomy. 12. Gastroesophageal reflux disease 13. Peripheral neuropathy 14. Left knee endoscopy ALLERGIES PENICILLIN, PREDNISONE, MORPHINE, CODEINE, STEROIDS, VALIUM. ANTIBIOTICS 1. Vancomycin 2. Aztreonam 3. Metronidazole OBJECTIVE: Vital Signs Date Time Temp Pulse Resp B/P Pulse Ox O2 Delivery O2 Flow Rate FiO2 01/10/17 12:00 97.2 96 20 104/59 95 01/10/17 08:54 92 3.00 01/10/17 08:40 108 01/10/17 08:00 98.0 106 20 116/55 92 01/10/17 00:51 18 01/10/17 00:00 98.0 114 20 111/55 92 01/09/17 20:00 97.6 108 20 104/57 92 01/09/17 20:00 109 01/09/17 19:55 94 Nasal Cannula 3.00 01/09/17 17:00 98.1 107 18 117/58 95 01/09/17 16:30 103 18 107/44 95 01/09/17 16:00 101 16 121/42 94 01/09/17 01/09/17 01/10/17 15:00 23:00 07:00 Intake Total 2350 ml 1890 ml 240 ml Output Total 230 ml 400 ml Balance 2350 ml 1660 ml -160 ml Intake Oral 690 ml 240 ml IV Total 2350 ml 1200 ml Output Urine Total 400 ml Drainage Total 130 ml Other 100 ml # Voids 1 4 1 # Bowel Movements 0 1 Laboratory Tests Test 01/09/17 01/10/17 08:50 05:50 Erythrocyte Sedimentation Rate 4 mm/hr White Blood Count 26.4 TH/MM3 25.6 TH/MM3 Red Blood Count 4.18 MIL/MM3 3.04 MIL/MM3 Hemoglobin 11.1 GM/DL 8.2 GM/DL Hematocrit 35.2 % 25.3 % Mean Corpuscular Volume 84.3 FL 83.3 FL Mean Corpuscular Hemoglobin 26.6 PG 26.9 PG Mean Corpuscular Hemoglobin 31.6 % 32.3 % Concent Red Cell Distribution Width 15.9 % 15.0 % Platelet Count 653 TH/MM3 514 TH/MM3 Mean Platelet Volume 7.6 FL 7.3 FL Neutrophils (%) (Auto) 89.5 % 87.7 % Lymphocytes (%) (Auto) 6.9 % 6.4 % Monocytes (%) (Auto) 1.6 % 5.7 % Eosinophils (%) (Auto) 0.3 % 0.2 % Basophils (%) (Auto) 1.7 % 0.0 % Neutrophils # (Auto) 23.7 TH/MM3 22.4 TH/MM3 Lymphocytes # (Auto) 1.8 TH/MM3 1.6 TH/MM3 Monocytes # (Auto) 0.4 TH/MM3 1.5 TH/MM3 Eosinophils # (Auto) 0.1 TH/MM3 0.1 TH/MM3 Basophils # (Auto) 0.4 TH/MM3 0.0 TH/MM3 CBC Comment AUTO DIFF AUTO DIFF Differential Total Cells 100 100 Counted Neutrophils % (Manual) 70 % 31 % Band Neutrophils % 14 % 51 % Lymphocytes % 8 % 8 % Monocytes % 2 % 4 % Eosinophils % 2 % Neutrophils # (Manual) 23.2 TH/MM3 22.5 TH/MM3 Metamyelocytes 4 % 4 % Differential Comment FINAL DIFF FINAL DIFF MANUAL MANUAL Platelet Estimate HIGH HIGH Platelet Morphology Comment HYPOGRAN NORMAL Myelocytes 2 % Laboratory Tests Test 01/09/17 01/09/17 01/10/17 08:50 12:19 05:50 Sodium Level 137 MEQ/L 133 MEQ/L Potassium Level 4.3 MEQ/L 4.8 MEQ/L Chloride Level 100 MEQ/L 103 MEQ/L Carbon Dioxide Level 24.4 MEQ/L 19.8 MEQ/L Anion Gap 13 MEQ/L 10 MEQ/L Blood Urea Nitrogen 17 MG/DL 21 MG/DL Creatinine 1.20 MG/DL 1.10 MG/DL Estimat Glomerular Filtration 45 ML/MIN 49 ML/MIN Rate Random Glucose 149 MG/DL 95 MG/DL Lactic Acid Level 2.4 mmol/L 2.0 mmol/L Calcium Level 9.1 MG/DL 7.7 MG/DL Phosphorus Level 4.5 MG/DL Magnesium Level 2.0 MG/DL Total Bilirubin 0.8 MG/DL Aspartate Amino Transf 22 U/L (AST/SGOT) Alanine Aminotransferase 18 U/L (ALT/SGPT) Alkaline Phosphatase 174 U/L Total Creatine Kinase 20 U/L Troponin I LESS THAN 0.02 NG/ML C-Reactive Protein 24.70 MG/DL Total Protein 7.9 GM/DL 5.7 GM/DL Albumin 1.9 GM/DL Lipase 95 U/L Protein Corrected Calcium 8.5 MG/DL Microbiology Date/Time Procedure Status Source Growth 01/09/17 08:45 Influenza Types A,B Antigen (RYAN) - Final Complete Nasal Washing NEGATIVE FOR FLU A AND B ANTIGEN.... 01/09/17 08:50 Aerobic Blood Culture - Preliminary Resulted Blood Peripheral NO GROWTH IN 1 DAY 01/09/17 08:50 Anaerobic Blood Culture - Preliminary Resulted Blood Peripheral NO GROWTH IN 1 DAY 01/09/17 08:55 Aerobic Blood Culture - Preliminary Resulted Blood Peripheral NO GROWTH IN 1 DAY 01/09/17 08:55 Anaerobic Blood Culture - Preliminary Resulted Blood Peripheral NO GROWTH IN 1 DAY 01/09/17 09:35 Urine Culture - Preliminary Resulted Urine Catheterized Urine Gram Negative Mayur 01/09/17 15:15 Gram Stain - Final Resulted Abscess Other 01/09/17 15:15 Wound Culture - Preliminary Resulted Gram Negative Mayur 01/09/17 15:15 Acid Fast Stain Received Abscess Other Pending 01/09/17 15:15 Mycobacterial Culture Received Abscess Other Pending 01/09/17 15:15 Fungal Smear Received Abscess Other Pending 01/09/17 15:15 Fungal Culture Received Abscess Other Pending PHYSICAL EXAMINATION GENERAL: No acute distress. She is awake and alert and oriented. HEENT: Extraocular movements grossly intact, pupils reactive to light. No icterus. Oropharynx has no visible lesions. Mucosa is moist. NECK: Supple without adenopathy or swelling. LUNGS: Clear breath sounds. HEART: Regular rate and rhythm without murmurs, rubs or gallops. ABDOMEN: Bowel sounds present, soft, no tenderness appreciated. The patient has a catheter that exits the left flank area and it has reddish rust colored drainage. EXTREMITIES: No clubbing or cyanosis or edema. SKIN: No diffuse rash. NEUROLOGIC: No gross focal findings. PSYCH: The patient is calm and cooperative. IMPRESSION 1. Retroperitoneal abscess/perinephric abscess. Gram neg mayur. 2. Urinary tract infection . gram neg rad. 3. Sepsis indicated by elevated heart rate, leukocytosis, source of infection likely urine and also retroperitoneal abscess. 4. Acute kidney disease RECOMMENDATIONS 1. Continue Aztreonam 2. Add Levaquin while awaiting cultures. 3. Stop vancomycin 4. Stop Metronidazole. 5. Monitor the cultures 6. Monitor temperature and white blood cell count 7. Follow urine culture. Graham Saldana MD Jan 10, 2017 16:03
[2017-01-10] MEDS ORDERED: LEVOFLOXACIN 500 MG PREMIX INJ 100 ML IV SCH (17:00)
[2017-01-10] MEDS: ENOXAPARIN SODIUM 40 MG/0.4 ML SYRINGE SQ SCH (21:00)
[2017-01-10] MEDS: ATORVASTATIN 40 MG TAB PO SCH (21:02)
[2017-01-11] VITALS (70 sets, daily range): BP systolic 74–134; BP diastolic 34–69; PULSE 86–121; RESP 11–34; TEMP 97–98.3; O2SAT 72–100
[2017-01-11] MEDS ORDERED: SODIUM CHLOR 0.9% 1000 ML INJ 1,000 ML IV ONE ×4 (01:15→17:45)
[2017-01-11] MEDS: AZTREONAM INJ 2,000 MG in SODIUM CHLORIDE 0.9% INJ 100 ML IV SCH ×3 (01:26→18:44)
[2017-01-11] MEDS: MAGNESIUM HYDROXIDE SUSP 30 ML CUP PO PRN (01:31)
[2017-01-11] MEDS ORDERED: BISACODYL EC 5 MG TABEC PO ONE (03:45)
[2017-01-11 04:23] LABS: HEMATOCRIT 26.8 % (35.0-46.0); MEAN CELL VOLUME 83.1 FL (80.0-100.0); MEAN CORPUSCULAR HEMOGLOBIN 27.2 PG (27.0-34.0); MEAN CORPUSCULAR HGB CONC 32.7 % (32.0-36.0); PLATELET COUNT 525 TH/MM3 (150-450); RED BLOOD COUNT 3.23 MIL/MM3 (4.00-5.30); RED CELL DISTRIBUTION WIDTH 15.3 % (11.6-17.2); WHITE BLOOD COUNT 31.6 TH/MM3 (4.0-11.0)
[2017-01-11 04:50] LABS: HEMO FLAGS AUTO DIFF
[2017-01-11 04:53] LABS: CHLORIDE 106 MEQ/L (98-107); POTASSIUM 4.6 MEQ/L (3.5-5.1); SODIUM (NA) 136 MEQ/L (136-145)
[2017-01-11] MEDS: LEVOTHYROXINE SODIUM 112 MCG TAB PO SCH (05:17)
[2017-01-11 05:19] LABS: ALKALINE PHOSPHATASE 107 U/L (45-117); ALT (GPT) 15 U/L (10-53); ANION GAP 8 MEQ/L (5-15); AST (GOT) 40 U/L (15-37); BICARBONATE 21.6 MEQ/L (21.0-32.0); BLOOD UREA NITROGEN 23 MG/DL (7-18); GLOMERULAR FILTRATION RATE 49 ML/MIN (>89); MAGNESIUM 2.1 MG/DL (1.5-2.5); TOTAL BILIRUBIN ADULT 0.4 MG/DL (0.2-1.0)
[2017-01-11] MEDS ORDERED: SODIUM CHLORID 0.9% 500 ML INJ 500 ML IV ONE (05:30)
[2017-01-11 06:01] LABS: BANDS 25 % (0-6); NEUTROPHIL # MANUAL DIFF 29.4 TH/MM3 (1.8-7.7); POLYS (SEG NEUTROPHILS) 68 % (16-70); WBC DIFF SAMPLE 100
[2017-01-11 06:03] LABS: OVALOCYTES 1+ (NORMAL)
[2017-01-11 06:05] LABS: CRENATED RBCS 2+ (NORMAL)
[2017-01-11 06:07] LABS: PLATELET ESTIMATE SMEAR HIGH (NORMAL); PLATELET MORPHOLOGY NORMAL (NORMAL); SCAN/DIFF FINAL DIFF MANUAL; TOXIC GRANULATION 2+ (NORMAL)
[2017-01-11] MEDS: RESP: ALBUTEROL 2.5 MG/IPRATROPIUM 0.5 MG NEB (SCH) NEB ×3 (07:23→19:44)
[2017-01-11] MEDS: FAMOTIDINE 20 MG TAB PO SCH ×2 (08:44→20:59)
[2017-01-11] MEDS: LORATADINE 10 MG TAB PO SCH (08:44)
[2017-01-11] MEDS: DOCUSATE SODIUM 50 MG/SENNA 8.6 MG TAB PO SCH ×2 (08:44→20:58)
[2017-01-11] MEDS: DIVALPROEX SODIUM E.R. 500 MG TAB PO SCH ×3 (08:44→18:46)
[2017-01-11] MEDS: EZETIMIBE 10 MG TAB PO SCH (08:44)
[2017-01-11] MEDS: GABAPENTIN 300 MG CAP PO SCH ×2 (08:44→20:58)
[2017-01-11] MEDS: NICOTINE 21 MG/24 HR PATCH TD SCH (08:44)
[2017-01-11] MEDS: REMOVE OLD PATCH TD SCH (08:44)
[2017-01-11] MEDS: SODIUM CHLORIDE 0.9% FLUSH 5 ML FLUSH FLUSH SCH ×2 (08:45→20:59)
[2017-01-11] MEDS: VENLAFAXINE HCL XR 75 MG CAP PO SCH (08:45)
[2017-01-11] MEDS: SODIUM CHLOR 0.9% 1000 ML INJ 1,000 ML IV SCH ×3 (08:50→20:57)
[2017-01-11] MEDS ORDERED: LACTULOSE SYRUP 20 GM/30 ML CUP PO ONE (09:00)
--- NOTE | 2017-01-11 09:24 | RADHPO ---
EXAM DATE/TIME: 01/11/2017 08:34 [place] COMPARISON: UROGRAM IVP ROUTINE, January 09, 2017, 13:22. INDICATIONS : Abdominal distention MEDICAL HISTORY : Chronic obstructive pulmonary disease. SURGICAL HISTORY : Hysterectomy. ENCOUNTER: Initial ACUITY: 1 day PAIN SCORE: 5/10 LOCATION: Abdomen FINDINGS: Drainage catheter now projects over the right midabdomen. Considerable stool again seen in the right- sided colon. There is mild distention of the stomach. No small bowel distention seen. No evidence of free air. CONCLUSION: Mildly distended stomach, probably an ileus. No small or large bowel distention seen. Considerable st ool in the right side of the colon. Som Alvarez MD on January 11, 2017 at 9:21 Board Certified Radiologist. This report was verified electronically.
[2017-01-11] MEDS ORDERED: ONDANSETRON HCL 4 MG/2 ML VIAL IV PUSH ONE (09:35)
[2017-01-11] MEDS ORDERED: INFLUENZA VIRUS VACCINE (QUADRIVALENT) 0.5 ML SYR IM ONE (10:00)
--- NOTE | 2017-01-11 10:23 | HHI.PR ---
Subjective Remarks Follow up on patient with right-sided perinephric abscess. Patient denies any complaints of pain today outside of the abdominal pressure and discomfort having not had bowel movement in the past week. She denies any right-sided lumboabdominal pain. She denies any chest pain or shortness of breath. Discussed with the nursing staff, patient's drain has not been working properly. Also her blood pressure has been very low, she has received 2.5L of fluid. Patient is actually in the process of going down to radiology now for revision IR procedure. Objective Vitals Vital Signs Date Time Temp Pulse Resp B/P Pulse Ox O2 Delivery O2 Flow Rate FiO2 01/11/17 07:26 93 Nasal Cannula 4.00 01/11/17 04:00 97.8 98 18 88/57 93 01/11/17 03:39 88/46 01/11/17 03:30 97.8 98 18 74/69 93 88/57 84/55 01/11/17 00:00 98.1 104 18 84/54 92 01/10/17 20:00 108 01/10/17 20:00 97.8 113 18 108/61 93 01/10/17 19:35 95 Nasal Cannula 4.00 01/10/17 16:00 97.0 99 18 114/53 95 01/10/17 12:00 97.2 96 20 104/59 95 I/O 01/10/17 01/10/17 01/10/17 01/11/17 01/11/17 01/11/17 07:00 15:00 23:00 07:00 15:00 23:00 Intake Total 240 ml 825 ml 1350 ml 420 ml Output Total 400 ml 850 ml 0 ml Balance -160 ml 825 ml 500 ml 420 ml Intake Oral 240 ml 825 ml 600 ml 420 ml IV Total 750 ml Output Urine Total 400 ml 850 ml Stool Total 0 ml # Voids 1 2 2 3 # Bowel Movements 1 0 0 Result Diagram: 01/11/17 0416 01/11/17 0416 Imaging Last 24 hours Impressions Abdomen X-Ray 01/11/17 0000 Signed Impressions: Service Date/Time: Wednesday, January 11, 2017 08:34 - CONCLUSION: Mildly distended stomach, probably an ileus. No small or large bowel distention seen. Considerable stool in the right side of the colon. Som Alvarez MD Objective Remarks GENERAL: Well-nourished, well-developed patient in NAD. Much less ill- appearing today. SKIN: Warm and dry. No rash. HEAD: Normocephalic. Atraumatic. EYES: Pupils equal and round. No scleral icterus. No injection or drainage. ENT: No nasal bleeding or discharge. Mucous membranes pink and moist. NECK: Supple. Trachea midline. CARDIOVASCULAR: Tachycardic. S1, S2 noted. No murmur appreciated. RESPIRATORY: Breath sounds diminished bilaterally. Better air movement appreciated today. No accessory muscle involvement. GASTROINTESTINAL: Abdomen firm, mildly distended. Normoactive bowel sounds x4. Drain in place. MUSCULOSKELETAL: No obvious deformities. Extremities without clubbing, cyanosis , or edema. NEUROLOGICAL: Awake and alert. No obvious cranial nerve deficits. Motor grossly within normal limits. 5/5 muscle strength in bilateral upper and lower extremities. Normal speech. PSYCHIATRIC: Appropriate mood and affect; insight and judgment normal. Medications and IVs Current Medications Medications (Trade) Dose Ordered Sig/Ramiro Route Start Time Stop Time Status Last Admin (Azactam Inj/NS Inj) 100 ml @ 200 mls/hr Q8H IV 01/09/17 18:00 01/11/17 08:43 (NS Flush) 2 ml UNSCH PRN FLUSH 01/09/17 12:30 (NS Flush) 2 ml BID FLUSH 01/09/17 21:00 01/11/17 08:45 (Tylenol) 650 mg Q4HR PRN PO 01/09/17 13:00 (Milk Of Magnesia Liq) 30 ml Q12HR PRN PO 01/09/17 13:00 01/11/17 01:31 (Lovenox Inj) 40 mg Q24H SQ 01/09/17 21:00 01/10/17 21:00 (Medfield 5-325 Mg) 1 tab Q4H PRN PO 01/09/17 12:30 (Medfield 7.5-325 Mg) 1 tab Q4H PRN PO 01/09/17 12:30 01/10/17 12:35 (Dilaudid Pf Inj) 1 mg Q3HR PRN IV 01/09/17 14:00 01/10/17 00:11 (Narcan Inj) 0.4 mg UNSCH PRN IV 01/09/17 12:30 (Toradol Inj) 15 mg Q6H PRN IV PUSH 01/09/17 13:00 01/13/17 12:59 01/09/17 17:15 (Lipitor) 80 mg HS PO 01/09/17 21:00 01/10/17 21:02 (Depakote Er) 500 mg TID PO 01/09/17 13:00 01/11/17 08:44 (Zetia) 10 mg DAILY PO 01/10/17 09:00 01/11/17 08:44 (Synthroid) 112 mcg DAILY@06 PO 01/10/17 06:00 01/11/17 05:17 (Claritin) 10 mg DAILY PO 01/10/17 09:00 01/11/17 08:44 (Pepcid) 10 mg BID PO 01/09/17 21:00 01/11/17 08:44 (Zanaflex) 4 mg BID PO 01/09/17 21:00 01/11/17 08:50 (Effexor Xr) 75 mg DAILY PO 01/10/17 09:00 01/11/17 08:45 (Pill Splitter) 1 ea UNSCH PRN OTHER 01/09/17 13:15 (Habitrol 21 Mg Patch.24 Hr) 1 patch DAILY TD 01/09/17 16:00 01/11/17 08:44 (NS Inj) 10 ml DAILY@1600 IRRIGATION 01/09/17 16:00 01/10/17 16:00 Miscellaneous Information 1 DAILY TD 01/10/17 09:00 01/11/17 08:44 (Flu (Quadrivalent) Vaccine Inj) 0.5 ml ONCE ONCE IM 01/11/17 10:00 01/11/17 10:01 (Neurontin) 300 mg BID PO 01/10/17 21:00 01/11/17 08:44 Al Hydrox/Mg Hydrox/ Simethicone 30 ml 30 ml Q6H PRN PO 01/10/17 12:15 01/10/17 12:34 (Levaquin 500 Mg Premix Inj) 100 ml @ 100 mls/hr Q24H IV 01/10/17 17:00 01/10/17 17:27 (Joanne-Colace) 2 tab BID PO 01/11/17 09:00 01/11/17 08:44 Bisacodyl 10 mg 10 mg DAILY PRN NH 01/11/17 08:00 (NS 1000 ml Inj) 1,000 ml @ 125 mls/hr Q8H IV 01/11/17 08:30 01/11/17 08:50 Urinary Catheter: No A/P Assessment and Plan 71-year-old female with a past medical history significant for hypertension, COPD with ongoing tobacco use, dyslipidemia, hypothyroidism, bipolar disorder and anxiety who presents to [facility] ED with complaints of 7-10 day history of progressive right-sided flank/abdominal pain and upper back pain as well as shortness of breath. Right sided Retroperitoneal perinephric abscess - Status post IR procedure with 30 cc of pus removed and drain left in place, draining out working properly, patient to have revision of right percutaneous drain by IR - Infectious disease following, very much appreciate their assistance - Urology following, appreciate their assistance. Recommend reimaging with CT scan in 3-4 days. - Abscess fluid cultures growing gram-negative rods. Per infectious disease, Vancomycin and Metronidazole discontinued. Continue with Azactam. Levaquin added. - Continue with IV pain meds and antiemetics prn - follow up on blood, urine and abscess cx results UTI - Urine culture shows Ecoli - h/o recurrent UTIs, every 3-6mos - continue with IV Azactam Sepsis - secondary to above - white count trending up overnight - 26.4 -> 25.6 -> 31.6. Tachycardic. BP 88 /57. O2 sat 93%. Patient received 2.5L fluid this am. IVF resumed. - IV abx as above - repeat lactic acid level 2.0 - IVF resuscitation - ESR 4, CRP 24.7 Constipation - KUB shows ileus - no BM x 7 days - escalate bowel regimen - monitor for BM COPD - supplemental oxygen - Duonebs prn Thrombocytosis - likely reactive - recheck lab in am ODILON - Improving, 1.20 -> 1.10 - avoid nephrotoxics - am labs to monitor Hypertension ppr - patient reports h/o HTN in history but no antihypertensives listed in med rec - good control at present, no indication to initiate antihypertensive therapy - Continue to monitor BP Hypothyroidism - Continue with home Synthroid dose Dyslipidemia - Continue with home Zetia and Atorvastatin dose Anxiety/bipolar disorder - Continue home meds Peripheral neuropathy - resume home Gabapentin Generalized deconditioning - Lengthy discussion with daughter at the bedside. Patient will be relocating from [facility] to live with her daughter locally following her discharge. - PT eval/tx - Case management consult to assist with discharge planning, home health care/PT GERD - PPI DVT prophylaxis - SCDs/SADIA gómez Written by Carol Youssef PA-C acting as scribe for Dr. Hermosillo on 01/11/17 at 12:27. Medical Decision Making Impression and Plan The exam, history, and the medical decision-making described in the above note were completed with my assistance as the dictating practitioner. I attest that I had a [id number] encounter with the patient on the same day, and personally performed all of the history, exam, or medical decision making. I reviewed and agree with the plan. Patient seen and evaluated in room. Still complaining of abdominal discomfort from constipation/obstipation from our 7 days. Patient white cell count elevated and blood pressure still low. Care plan discussed with Maggie RN and stave hewer. Patient be transferred to the ICU, will continue current antibiotic plans. Interventional has adjusted the drain which had little output. Overall patient critically ill with severe sepsis. Carol Youssef Jan 11, 2017 10:23 Radha Hermosillo MD Jan 11, 2017 12:22
--- NOTE | 2017-01-11 10:30 | PD.RAD ---
Post Procedure Progress Note Pre Procedure Diagnosis: (1) Sepsis Post Procedure Diagnosis: (1) Sepsis Procedure Date: Jan 11, 2017 Supervising Radiologist: Jhonatan Cardenas Anesthesia: Conscious Sedation Plan of Activity Patient to Unit: Nursing Unit Patient Condition: Fair See PACS Report for procedural detail/treatment Drainage Procedure Procedure 1 Imaging Guidance: CT Procedure Type: Abscess Drainage Procedure: Placement Malian: 10 Fluid Description: Bloody, Purulent Jhonatan Cardenas MD Jan 11, 2017 10:29
[2017-01-11] MEDS ORDERED: LIDOCAINE 1%/EPINEPHrine 1:200,000 PF SOLN 10 ML VIAL OTHER ONE (10:45)
[2017-01-11] MEDS: ACETAMINOPHEN/HYDROcodone 325 MG/7.5 MG TAB PO PRN ×2 (11:12→20:58)
--- NOTE | 2017-01-11 12:05 | RADHPO ---
EXAM DATE/TIME: 01/11/2017 09:25 [facility] COMPARISON: CT ABSCESS DRAINAGE VANESSA/RETRO, January 09, 2017, 14:53. INDICATIONS : Right perinephric abscess. SEDATION TIME: 30 minutes MEDICATION(S): 1.) 100 mcg fentanyl (Sublimaze) IV DEVICE(S): 1.) 18 gauge Gayle blunt needle 2.) 10 Fr Skater FLUID: Total volume of 50 cc of cloudy, red fluid was removed. Fluid was discarded. MEDICAL HISTORY : Cardiovascular disease. Chronic obstructive pulmonary disease. SURGICAL HISTORY : Hysterectomy. section. ENCOUNTER: Initial ACUITY: 1 day PAIN SCORE: 5/10 LOCATION: Right lower quadrant PROCEDURE: 1.) Conscious sedation with continuous EKG and oximetry monitoring. 2.) EKG and oximetry remained stable throughout the procedure. PROCEDURE : 1. CT guided drainage of the right perinephric fluid collection 2. Conscious sedation with continuous EKG and oximetry monitoring. The risks, benefits and alternatives to the procedure were explained and verbal and written consent w as obtained. Using automated exposure control and adjustment of the mA and/or kV according to patient size, radiation dose was kept as low as reasonably achievable to obtain optimal diagnostic quality i mages. The site was prepped in sterile fashion. Full sterile technique was used, including cap, ma sk, sterile gloves and gown and a large sterile sheet. Hand hygiene and 2% chlorhexidine and/or beta dine/alcohol prep was utilized per protocol for cutaneous antisepsis. The skin and subcutaneous tiss ues were infiltrated with local anesthetic solution. Using CT guidance the prescribed site was localized. Drainage was performed using the prescribed cat heter. 50 cc of purulent fluid was removed The patient tolerated the procedure well and there were no complications. Conscious sedation was per formed with the prescribed dosages and duration as above in the presence of an independent trained ra diology nurse to assist in the monitoring of the patient. EKG and oximetry remained stable throughou t the procedure. The patient tolerated the procedure well and there were no complications. The patient was sent to pos t anesthesia recovery in stable condition. CONCLUSION: Uncomplicated CT guided drainage. Jhonatan Cardenas MD on January 11, 2017 at 12:03 Board Certified Radiologist. This report was verified electronically.
[2017-01-11] MEDS ORDERED: NOREPINEPHRINE-DEXTROSE DRIP 250 ML IV SCH (12:15)
[2017-01-11] MEDS ORDERED: NOREPINEPHRINE INJ 4 MG in SODIUM CHLOR 0.9% 250 ML INJ 246 ML IV SCH (12:15)
[2017-01-11] MEDS ORDERED: TERBUTALINE INJ 1 MG/ML AMP SQ PRN (12:15)
--- NOTE | 2017-01-11 15:15 | RADHPO ---
EXAM DATE/TIME: 01/09/2017 14:53 [facility] COMPARISON: CT ABDOMEN & PELVIS W CONTRAST, January 09, 2017, 10:48. INDICATIONS : Right perinephric abscess. SEDATION TIME: 20 minutes MEDICATION(S): 1.) 2 mg midazolam (Versed) IV 2.) 100 mcg fentanyl (Sublimaze) IV DEVICE(S): 1.) 10 Fr Keo FLUID: Total volume of 30 cc of gamez fluid was removed. Fluid was sent for laboratory ordered studies. MEDICAL HISTORY : Chronic obstructive pulmonary disease. SURGICAL HISTORY : Hysterectomy. section. ENCOUNTER: Initial ACUITY: 1 day PAIN SCORE: 0/10 LOCATION: Right abdomen PROCEDURE: 1.) Conscious sedation with continuous EKG and oximetry monitoring. 2.) EKG and oximetry remained stable throughout the procedure. PROCEDURE : 1. CT guided drainage of the right retroperitoneal abscess. 2. Conscious sedation with continuous EKG and oximetry monitoring. The risks, benefits and alternatives to the procedure were explained and verbal and written consent w as obtained. Using automated exposure control and adjustment of the mA and/or kV according to patient size, radiation dose was kept as low as reasonably achievable to obtain optimal diagnostic quality i mages. The site was prepped in sterile fashion. Full sterile technique was used, including cap, ma sk, sterile gloves and gown and a large sterile sheet. Hand hygiene and 2% chlorhexidine and/or beta dine/alcohol prep was utilized per protocol for cutaneous antisepsis. The skin and subcutaneous tiss ues were infiltrated with local anesthetic solution. Using CT guidance the prescribed site was localized. Drainage was performed using a 10 Maori cathet er. There is immediate return of 25 cc of purulent material. The patient tolerated the procedure well and there were no complications. Conscious sedation was per formed with the prescribed dosages and duration as above in the presence of an independent trained ra diology nurse to assist in the monitoring of the patient. EKG and oximetry remained stable throughou t the procedure. The patient tolerated the procedure well and there were no complications. The patient was sent to pos t anesthesia recovery in stable condition. CONCLUSION: Uncomplicated CT guided drainage. Greg Tillman MD on January 11, 2017 at 15:11 Board Certified Radiologist. This report was verified electronically.
--- NOTE | 2017-01-11 15:20 | HHI.IDPN ---
Note Infectious Disease Note Patient developed hypotension and is now on levophed. Awakens easily and follows commands. Abscess drainage catheter had to be replaced. Drainage dark red fluid. No rash. Afebrile. Feels r. flank pressure. Abscess fluid culture has gram neg mayur. Reported itching after receiving Vancomycin. PAST MEDICAL HISTORY 1. COPD 2. Tobacco abuse 3. Hypothyroidism 4. Hypertension 5. Anxiety disorder 6. Bipolar disorder 7. Dyslipidemia 8. History of frequent urinary infections. 9. History of uterine cancer 40 years ago. 10. History of back surgery. 11. History of L4-L5 sympathectomy. 12. Gastroesophageal reflux disease 13. Peripheral neuropathy 14. Left knee endoscopy ALLERGIES PENICILLIN, PREDNISONE, MORPHINE, CODEINE, STEROIDS, VALIUM. ANTIBIOTICS 1. Levaqiuin. 2. Aztreonam OBJECTIVE: Vital Signs Date Time Temp Pulse Resp B/P Pulse Ox O2 Delivery O2 Flow Rate FiO2 01/11/17 12:40 86 21 86/58 95 01/11/17 12:37 86 16 83/41 95 01/11/17 12:23 88 14 85/44 92 01/11/17 12:22 90 11 86/43 92 01/11/17 12:07 88 14 102/34 90 01/11/17 12:01 86 14 86/40 91 01/11/17 11:52 88 22 87/36 89 01/11/17 11:37 90 21 82/42 90 01/11/17 11:22 90 13 85/45 90 01/11/17 11:07 97.4 94 20 87/43 01/11/17 08:00 98.3 121 18 92/58 96 01/11/17 08:00 121 01/11/17 07:26 93 Nasal Cannula 4.00 01/11/17 04:00 97.8 98 18 88/57 93 01/11/17 03:39 88/46 01/11/17 03:30 97.8 98 18 74/69 93 88/57 84/55 01/11/17 00:00 98.1 104 18 84/54 92 01/10/17 20:00 108 01/10/17 20:00 97.8 113 18 108/61 93 01/10/17 19:35 95 Nasal Cannula 4.00 01/10/17 16:00 97.0 99 18 114/53 95 3/07/2101/10/17 01/11/17 15:00 23:00 07:00 Intake Total 825 ml 1350 ml 420 ml Output Total 850 ml 0 ml Balance 825 ml 500 ml 420 ml Intake Oral 825 ml 600 ml 420 ml IV Total 750 ml Output Urine Total 850 ml Stool Total 0 ml # Voids 2 2 3 # Bowel Movements 0 0 Laboratory Tests Test 01/10/17 01/11/17 05:50 04:16 White Blood Count 25.6 TH/MM3 31.6 TH/MM3 Red Blood Count 3.04 MIL/MM3 3.23 MIL/MM3 Hemoglobin 8.2 GM/DL 8.8 GM/DL Hematocrit 25.3 % 26.8 % Mean Corpuscular Volume 83.3 FL 83.1 FL Mean Corpuscular Hemoglobin 26.9 PG 27.2 PG Mean Corpuscular Hemoglobin 32.3 % 32.7 % Concent Red Cell Distribution Width 15.0 % 15.3 % Platelet Count 514 TH/MM3 525 TH/MM3 Mean Platelet Volume 7.3 FL 7.1 FL Neutrophils (%) (Auto) 87.7 % % Lymphocytes (%) (Auto) 6.4 % % Monocytes (%) (Auto) 5.7 % % Eosinophils (%) (Auto) 0.2 % % Basophils (%) (Auto) 0.0 % % Neutrophils # (Auto) 22.4 TH/MM3 TH/MM3 Lymphocytes # (Auto) 1.6 TH/MM3 TH/MM3 Monocytes # (Auto) 1.5 TH/MM3 TH/MM3 Eosinophils # (Auto) 0.1 TH/MM3 TH/MM3 Basophils # (Auto) 0.0 TH/MM3 TH/MM3 CBC Comment AUTO DIFF AUTO DIFF Differential Total Cells 100 100 Counted Neutrophils % (Manual) 31 % 68 % Band Neutrophils % 51 % 25 % Lymphocytes % 8 % 4 % Monocytes % 4 % 3 % Neutrophils # (Manual) 22.5 TH/MM3 29.4 TH/MM3 Metamyelocytes 4 % Myelocytes 2 % Differential Comment FINAL DIFF FINAL DIFF MANUAL MANUAL Platelet Estimate HIGH HIGH Platelet Morphology Comment NORMAL NORMAL Toxic Granulation 2+ Ovalocytes 1+ Crenated Cell 2+ Laboratory Tests Test 01/10/17 01/11/17 01/11/17 01/11/17 05:50 04:16 06:08 13:05 Sodium Level 133 MEQ/L 136 MEQ/L Potassium Level 4.8 MEQ/L 4.6 MEQ/L Chloride Level 103 MEQ/L 106 MEQ/L Carbon Dioxide Level 19.8 MEQ/L 21.6 MEQ/L Anion Gap 10 MEQ/L 8 MEQ/L Blood Urea Nitrogen 21 MG/DL 23 MG/DL Creatinine 1.10 MG/DL 1.10 MG/DL Estimat Glomerular Filtration 49 ML/MIN 49 ML/MIN Rate Random Glucose 95 MG/DL 105 MG/DL Calcium Level 7.7 MG/DL 7.8 MG/DL Protein Corrected Calcium 8.5 MG/DL Total Protein 5.7 GM/DL 5.8 GM/DL Magnesium Level 2.1 MG/DL Total Bilirubin 0.4 MG/DL Aspartate Amino Transf 40 U/L (AST/SGOT) Alanine Aminotransferase 15 U/L (ALT/SGPT) Alkaline Phosphatase 107 U/L Albumin 1.2 GM/DL Lactic Acid Level 1.6 mmol/L 1.2 mmol/L Microbiology Date/Time Procedure Status Source Growth 01/09/17 08:45 Influenza Types A,B Antigen (RYAN) - Final Complete Nasal Washing NEGATIVE FOR FLU A AND B ANTIGEN.... 01/09/17 08:50 Aerobic Blood Culture - Preliminary Resulted Blood Peripheral NO GROWTH IN 2 DAYS 01/09/17 08:50 Anaerobic Blood Culture - Preliminary Resulted Blood Peripheral NO GROWTH IN 2 DAYS 01/09/17 08:55 Aerobic Blood Culture - Preliminary Resulted Blood Peripheral NO GROWTH IN 2 DAYS 01/09/17 08:55 Anaerobic Blood Culture - Preliminary Resulted Blood Peripheral NO GROWTH IN 2 DAYS 01/09/17 09:35 Urine Culture - Final Complete Urine Catheterized Urine Escherichia Coli 01/09/17 15:15 Gram Stain - Final Resulted Abscess Other 01/09/17 15:15 Wound Culture - Preliminary Resulted Gram Negative Mayur 01/09/17 15:15 Acid Fast Stain - Final Resulted Abscess Other NO ACID FAST BACILLI SEEN 01/09/17 15:15 Mycobacterial Culture Resulted Abscess Other Pending 01/09/17 15:15 Fungal Smear - Final Resulted Abscess Other NO FUNGAL ELEMENTS SEEN. 01/09/17 15:15 Fungal Culture Resulted Abscess Other Pending PHYSICAL EXAMINATION GENERAL: No acute distress. Somnolent. HEENT: Extraocular movements grossly intact, pupils reactive to light. No icterus. Oropharynx has no visible lesions. Mucosa is moist. NECK: Supple without adenopathy or swelling. LUNGS: Clear breath sounds. HEART: Regular rate and rhythm without murmurs, rubs or gallops. ABDOMEN: Bowel sounds present, soft, no tenderness appreciated. Catheter at the left flank area has reddish rust colored drainage. EXTREMITIES: No clubbing or cyanosis or edema. SKIN: No diffuse rash. NEUROLOGIC: No gross focal findings. PSYCH: The patient is calm and cooperative. IMPRESSION 1. Retroperitoneal abscess/perinephric abscess. 2. Urinary tract infection . e.coli. 3. Severe Sepsis indicated by elevated heart rate, leukocytosis, source of infection likely urine and also retroperitoneal abscess. Also hypotension. 4. Acute kidney disease 5. Penicillin allergy. RECOMMENDATIONS 1. Continue Aztreonam 2. Stop Levaquin. 3. Monitor temperature and white blood cell count 4. Monitor the abscess fluid culture. Graham Saldana MD Jan 11, 2017 15:20
[2017-01-11] MEDS: SODIUM CHLORIDE 0.9% 10 ML VIAL IRRIGATION SCH (16:00)
[2017-01-11] MEDS ORDERED: LEVOFLOXACIN 250 MG PREMIX INJ 50 ML IV SCH (17:00)
--- NOTE | 2017-01-11 17:40 | PD.CONS ---
HPI Service Critical Care Medicine Consult Requested By Primary Care Physician Non-Staff History of Present Illness 71-year-old female presented to emergency department for evaluation of right- sided chest pain, RUQ abdominal pain and shortness of breath. CT scan emergency room showed a 6 x 9cm abscess in the right retroperitoneal region behind the right kidney. Follow-up IVP study showed good drainage of contrast without any evidence of extravasation or a forniceal rupture. No evidence of any stones were identified. She just underwent IR drainage of perinephric abscess and is presently feeling better. Her white count is trending up and patient was hypotensive despite IV fluid boluses. Critical care medicine was consulted for management of hypotension/sepsis Review of Systems Constitutional: DENIES: Diaphoretic episodes, Fatigue, Fever, Weight gain, Weight loss, Chills, Dizziness, Change in appetite, Night Sweats Endocrine: DENIES: Abnorml menstrual pattern, Heat/cold intolerance, Polydipsia , Polyuria, Polyphagia Eyes: DENIES: Blurred vision, Diplopia, Eye inflammation, Eye pain, Vision loss , Photosensitivity, Double Vision Ears, nose, mouth, throat: DENIES: Tinnitus, Hearing loss, Vertigo, Nasal discharge, Oral lesions, Throat pain, Hoarseness, Ear Pain, Running Nose, Epistaxis, Sinus Pain, Toothache, Odynophagia Respiratory: COMPLAINS OF: Shortness of breath, DENIES: Apneas, Cough, Snoring , Wheezing, Hemoptysis, Sputum production Cardiovascular: COMPLAINS OF: Chest pain, DENIES: Palpitations, Syncope, Dyspnea on Exertion, PND, Lower Extremity Edema, Orthopnea, Claudication Gastrointestinal: COMPLAINS OF: Abdominal pain Genitourinary: DENIES: Abnormal vaginal bleeding, Dysmenorrhea, Dyspareunia, Sexual dysfunction, Urinary frequency, Urinary incontinence, Urgency, Hematuria , Dysuria, Nocturia, Vaginal discharge Musculoskeletal: DENIES: Joint pain, Muscle aches, Stiffness, Joint Swelling, Back pain, Neck pain Integumentary: DENIES: Abnormal pigmentation, Pruritus, Rash, Nail changes, Breast masses, Breast skin changes, Nipple discharge Hematologic/lymphatic: DENIES: Bruising, Lymphadenopathy Immunologic/allergic: DENIES: Eczema, Urticaria Neurologic: DENIES: Abnormal gait, Headache, Localized weakness, Paresthesias, Seizures, Speech Problems, Tremor, Poor Balance Psychiatric: DENIES: Anxiety, Confusion, Mood changes, Depression, Hallucinations, Agitation, Suicidal Ideation, Homicidal Ideation, Delusions Past Family Social History Allergies: Coded Allergies: Morphine (Verified Allergy, Intermediate, HALLUCINATIONS, 01/09/17) Penicillin (Verified Allergy, Intermediate, RASH, 01/09/17) Prednisone (Verified Allergy, Intermediate, FACE SWELLS, 01/09/17) Valium (Verified Allergy, Mild, UNKNOWN, 01/09/17) Codeine (Verified Adverse Reaction, Intermediate, CONSTIPATION, 01/09/17) Uncoded Allergies: STEROIDS (Allergy, Intermediate, FACE SWELLS, 03/30/09) Past Medical History COPD with continued tobacco use Hypothyroidism Dyslipidemia Hypertension Anxiety Bipolar Recurrent urinary tract infections, every 3-6 months History of uterine cancer 40 years ago status post hysterectomy GERD Peripheral neuropathy Past Surgical History Hysterectomy L45 sympathectomy Left knee arthroscopy Reported Medications Reported Meds & Active Scripts Active Reported Motrin Ib (Ibuprofen) 200 Mg Tab 400 Mg PO Q6H PRN Aleve (Naproxen Sodium) 220 Mg Tab 440 Mg PO BID PRN Effexor (Venlafaxine HCl) 75 Mg Tab 75 Mg PO DAILY Tizanidine (Tizanidine HCl) 4 Mg Cap 4 Mg PO BID Omeprazole 40 Mg Cap 40 Mg PO DAILY Divalproex ER (Divalproex Sodium) 500 Mg Tab 500 Mg PO TID Claritin (Loratadine) 10 Mg Cap 10 Mg PO DAILY Zetia (Ezetimibe) 10 Mg Tab 10 Mg PO DAILY Atorvastatin (Atorvastatin Calcium) 80 Mg Tab 80 Mg PO HS Ranitidine (Ranitidine HCl) 150 Mg Tab 150 Mg PO BID Naproxen 500 Mg Tab 500 Mg PO BID Levothyroxine (Levothyroxine Sodium) 112 Mcg Tab 112 Mcg PO DAILY Gabapentin 300 Mg Cap 300 Mg PO TID Active Ordered Medications Current Medications Medications (Trade) Dose Ordered Sig/Ramiro Route PRN Reason Start Time Stop Time Status Last Admin Dose Admin Aztreonam/Sodium Chloride (Azactam Inj/NS Inj) 100 ml @ 200 mls/hr Q8H IV 01/09/17 18:00 01/12/17 11:54 IV Flush (NS Flush) 2 ml UNSCH PRN FLUSH FLUSH AFTER USING IV ACCESS 01/09/17 12:30 IV Flush (NS Flush) 2 ml BID FLUSH 01/09/17 21:00 01/12/17 09:00 Acetaminophen (Tylenol) 650 mg Q4HR PRN PO TEMP > 100.4 01/09/17 13:00 Magnesium Hydroxide (Milk Of Shyanne Liq) 30 ml Q12HR PRN PO CONSTIPATION 01/09/17 13:00 01/11/17 01:31 Enoxaparin Sodium (Lovenox Inj) 40 mg Q24H SQ 01/09/17 21:00 01/11/17 20:58 Acetaminophen/ Hydrocodone Bitart ([place] 5-325 Mg) 1 tab Q4H PRN PO PAIN SCALE 3 TO 5 01/09/17 12:30 Acetaminophen/ Hydrocodone Bitart ([place] 7.5-325 Mg) 1 tab Q4H PRN PO PAIN SCALE 6 TO 10 01/09/17 12:30 01/11/17 20:58 Hydromorphone HCl (Dilaudid Pf Inj) 1 mg Q3HR PRN IV Pain 6-10;if unable to take PO 01/09/17 14:00 01/10/17 00:11 Naloxone HCl (Narcan Inj) 0.4 mg UNSCH PRN IV SEE LABEL COMMENTS 01/09/17 12:30 Ketorolac Tromethamine (Toradol Inj) 15 mg Q6H PRN IV PUSH abdominal pain 01/09/17 13:00 01/13/17 12:59 01/09/17 17:15 Atorvastatin Calcium (Lipitor) 80 mg HS PO 01/09/17 21:00 01/11/17 20:58 Divalproex Sodium (Depakote Er) 500 mg TID PO 01/09/17 13:00 01/12/17 11:53 EZETIMIBE (Zetia) 10 mg DAILY PO 01/10/17 09:00 01/12/17 11:52 Levothyroxine Sodium (Synthroid) 112 mcg DAILY@06 PO 01/10/17 06:00 01/12/17 05:35 Loratadine (Claritin) 10 mg DAILY PO 01/10/17 09:00 01/12/17 11:52 Famotidine (Pepcid) 10 mg BID PO 01/09/17 21:00 01/12/17 11:53 Tizanidine HCl (Zanaflex) 4 mg BID PO 01/09/17 21:00 01/12/17 11:52 Venlafaxine HCl (Effexor Xr) 75 mg DAILY PO 01/10/17 09:00 01/12/17 11:53 Miscellaneous (Pill Splitter) 1 ea UNSCH PRN OTHER SEE LABEL COMMENTS 01/09/17 13:15 Nicotine (Habitrol 21 Mg Patch.24 Hr) 1 patch DAILY TD 01/09/17 16:00 01/12/17 11:54 Sodium Chloride (NS Inj) 10 ml DAILY@1600 IRRIGATION 01/09/17 16:00 01/10/17 16:00 Miscellaneous Information 1 DAILY TD 01/10/17 09:00 01/11/17 08:44 Gabapentin (Neurontin) 300 mg BID PO 01/10/17 21:00 01/12/17 11:52 Al Hydrox/Mg Hydrox/Simethicone (Mag-Al Plus Susp Liq) 30 ml Q6H PRN PO DYSPEPSIA OR HEARTBURN 01/10/17 12:15 01/10/17 12:34 Senna/Docusate Sodium (Joanne-Colace) 2 tab BID PO 01/11/17 09:00 01/12/17 11:52 Bisacodyl 10 mg 10 mg DAILY PRN IN CONSTIPATION 01/11/17 08:00 01/12/17 05:34 Sodium Chloride 1,000 ml @ 125 mls/hr Q8H IV 01/11/17 08:30 01/12/17 08:30 Norepinephrine Bitartrate (Levophed-Dextrose Drip) 250 ml @ 0 mls/hr TITRATE IV 01/11/17 12:15 Terbutaline Sulfate (Brethine Inj) 1 mg UNSCH PRN SQ For Extravasation 01/11/17 12:15 Family History Noncontributory Social History Positive for smoking Negative for alcohol or illicit drug abuse Physical Exam Vital Signs Vital Signs Date Time Temp Pulse Resp B/P Pulse Ox O2 Delivery O2 Flow Rate FiO2 01/11/17 16:34 127/52 01/11/17 16:20 94 15 122/52 95 01/11/17 16:10 100 24 106/44 92 01/11/17 16:00 100 21 131/44 86 01/11/17 15:50 100 20 134/52 93 01/11/17 15:40 92 11 117/53 94 01/11/17 15:30 94 12 111/45 94 01/11/17 15:20 92 11 117/45 95 01/11/17 15:10 92 11 113/48 95 01/11/17 15:00 92 11 111/55 95 01/11/17 14:40 90 12 111/48 95 01/11/17 14:30 92 11 106/46 95 01/11/17 14:20 90 12 99/48 95 01/11/17 14:10 90 12 97/47 95 01/11/17 14:00 90 12 103/41 95 01/11/17 13:50 92 24 106/45 91 01/11/17 13:40 90 19 109/47 89 01/11/17 13:34 98 27 121/58 90 01/11/17 13:30 88 12 96/45 93 01/11/17 13:20 88 12 94/46 93 01/11/17 13:10 96 34 118/54 89 01/11/17 13:04 92 21 109/43 89 01/11/17 12:50 86 17 105/42 94 01/11/17 12:47 88 16 104/47 94 01/11/17 12:40 86 21 86/58 95 01/11/17 12:40 86 21 86/58 95 01/11/17 12:37 86 16 83/41 95 01/11/17 12:23 88 14 85/44 92 01/11/17 12:22 90 11 86/43 92 01/11/17 12:07 88 14 102/34 90 01/11/17 12:01 86 14 86/40 91 01/11/17 11:52 88 22 87/36 89 01/11/17 11:37 90 21 82/42 90 01/11/17 11:22 90 13 85/45 90 01/11/17 11:07 97.4 94 20 87/43 01/11/17 08:00 98.3 121 18 92/58 96 01/11/17 08:00 121 01/11/17 07:26 93 Nasal Cannula 4.00 01/11/17 04:00 97.8 98 18 88/57 93 01/11/17 03:39 88/46 01/11/17 03:30 97.8 98 18 74/69 93 88/57 84/55 01/11/17 00:00 98.1 104 18 84/54 92 01/10/17 20:00 108 01/10/17 20:00 97.8 113 18 108/61 93 01/10/17 19:35 95 Nasal Cannula 4.00 Laboratory Laboratory Tests Test 01/11/17 01/11/17 01/11/17 04:16 06:08 13:05 White Blood Count 31.6 Red Blood Count 3.23 Hemoglobin 8.8 Hematocrit 26.8 Mean Corpuscular Volume 83.1 Mean Corpuscular Hemoglobin 27.2 Mean Corpuscular Hemoglobin 32.7 Concent Red Cell Distribution Width 15.3 Platelet Count 525 Mean Platelet Volume 7.1 Neutrophils (%) (Auto) Lymphocytes (%) (Auto) Monocytes (%) (Auto) Eosinophils (%) (Auto) Basophils (%) (Auto) Neutrophils # (Auto) Lymphocytes # (Auto) Monocytes # (Auto) Eosinophils # (Auto) Basophils # (Auto) CBC Comment AUTO DIFF Differential Total Cells 100 Counted Neutrophils % (Manual) 68 Band Neutrophils % 25 Lymphocytes % 4 Monocytes % 3 Neutrophils # (Manual) 29.4 Differential Comment FINAL DIFF MANUAL Toxic Granulation 2+ Platelet Estimate HIGH Platelet Morphology Comment NORMAL Ovalocytes 1+ Crenated Cell 2+ Sodium Level 136 Potassium Level 4.6 Chloride Level 106 Carbon Dioxide Level 21.6 Anion Gap 8 Blood Urea Nitrogen 23 Creatinine 1.10 Estimat Glomerular Filtration 49 Rate Random Glucose 105 Calcium Level 7.8 Magnesium Level 2.1 Total Bilirubin 0.4 Aspartate Amino Transf 40 (AST/SGOT) Alanine Aminotransferase 15 (ALT/SGPT) Alkaline Phosphatase 107 Total Protein 5.8 Albumin 1.2 Lactic Acid Level 1.6 1.2 Blood Type AB POSITIVE Antibody Screen NEGATIVE Date/Time Procedure Status Source Growth 01/09/17 15:15 Gram Stain - Final Resulted Abscess Other 01/09/17 15:15 Wound Culture - Preliminary Resulted Gram Negative Mayur 01/09/17 15:15 Fungal Smear - Final Resulted Abscess Other NO FUNGAL ELEMENTS SEEN. 01/09/17 15:15 Fungal Culture Resulted Abscess Other Pending 01/09/17 15:15 Acid Fast Stain - Final Resulted Abscess Other NO ACID FAST BACILLI SEEN 01/09/17 15:15 Mycobacterial Culture Resulted Abscess Other Pending 01/09/17 09:35 Urine Culture - Final Complete Urine Catheterized Urine Escherichia Coli 01/09/17 08:55 Aerobic Blood Culture - Preliminary Resulted Blood Peripheral NO GROWTH IN 2 DAYS 01/09/17 08:55 Anaerobic Blood Culture - Preliminary Resulted Blood Peripheral NO GROWTH IN 2 DAYS 01/09/17 08:45 Influenza Types A,B Antigen (RYAN) - Final Complete Nasal Washing NEGATIVE FOR FLU A AND B ANTIGEN.... Result Diagram: 01/11/176 01/11/17 0416 Imaging Last 24 hours Impressions Abdomen X-Ray 01/12/17 0600 Signed Impressions: Service Date/Time: Thursday, January 12, 2017 06:09 - CONCLUSION: No disproportionately dilated loops of small large bowel. Inderjit Lew MD Assessment and Plan Problem List: (1) Intra-abdominal abscess ICD Code: K65.1 Status: Acute (2) Sepsis ICD Code: A41.9 Status: Acute (3) UTI (urinary tract infection) ICD Code: N39.0 Status: Acute Assessment and Plan Gram-negative sepsis - Due to retroperitoneal abscess - Dispose drainage - Escherichia coli - Sensitive to aztreonam - Management per ID Hypotension - Due to above - Central line placement - Aggressive IV fluids resuscitation - Levothroid to keep map above 65 Leukocytosis - Due to sepsis - WBC still trending up - Send a stool sample to rule out C. difficile Hypothyroidism - Levothyroxine Dyslipidemia - Zetia - Atorvastatin Tobacco use disorder - Nicotine patch - DuoNeb as needed DVT GI prophylaxis - Pepcid subcutaneous Lovenox Critical Care: The total critical care time was 35 minutes. Time to perform other separately billable procedures was not included in the critical care time. Problem Qualifiers (1) Sepsis: Qualified Code: A41.9 - Sepsis, due to unspecified organism Victor M Conn MD Jan 11, 2017 17:40
--- NOTE | 2017-01-11 18:31 | RADHPO ---
EXAM DATE/TIME: 01/11/2017 18:11 [facility] COMPARISON: CHEST SINGLE AP, January 09, 2017, 9:10. INDICATIONS : Post central line placement. MEDICAL HISTORY : Chronic obstructive pulmonary disease. SURGICAL HISTORY : Hysterectomy. Orthopedic surgery. Sympathectomy ENCOUNTER: Subsequent ACUITY: 3 days PAIN SCORE: 0/10 LOCATION: Bilateral chest FINDINGS: Mild atelectasis seen at the bases. No large effusion. No pneumothorax. Heart size stable, within nor mal limits. There is a new right IJ central venous catheter with tip at atriocaval junction. CONCLUSION: Right IJ central venous line has its tip at the atriocaval junction. No pneumothorax or other acute c omplication demonstrated. Mild bibasilar atelectasis. Som Alvarez MD on January 11, 2017 at 18:29 Board Certified Radiologist. This report was verified electronically.
[2017-01-11] MEDS: ATORVASTATIN 40 MG TAB PO SCH (20:58)
[2017-01-11] MEDS: ENOXAPARIN SODIUM 40 MG/0.4 ML SYRINGE SQ SCH (20:58)
[2017-01-12] VITALS (83 sets, daily range): BP systolic 79–153; BP diastolic 39–96; PULSE 78–122; RESP 12–31; TEMP 97–98.3; O2SAT 78–100
[2017-01-12] MEDS: SODIUM CHLOR 0.9% 1000 ML INJ 1,000 ML IV SCH ×4 (00:30→16:30)
[2017-01-12] MEDS: AZTREONAM INJ 2,000 MG in SODIUM CHLORIDE 0.9% INJ 100 ML IV SCH ×3 (01:25→17:44)
[2017-01-12] MEDS: BISACODYL 10 MG SUPP PR PRN (05:34)
[2017-01-12] MEDS: LEVOTHYROXINE SODIUM 112 MCG TAB PO SCH (05:35)
--- NOTE | 2017-01-12 06:21 | RADHPO ---
EXAM DATE/TIME: 01/12/2017 06:09 [facility] COMPARISON: ABDOMEN KUB ONLY, January 11, 2017, 8:34. INDICATIONS : Abdomen pain. MEDICAL HISTORY : None. SURGICAL HISTORY : Hysterectomy. Abdomen surgery. ENCOUNTER: Initial ACUITY: 1 week PAIN SCORE: 10/10 LOCATION: Right upper quadrant FINDINGS: Pigtail drainage catheter projects over the right epigastric region. Gas in the stomach with less pr ominence from prior exam. No dilated loops of small or large bowel. The visualized lower lungs are clear multiple hemoclips in the left central lower abdomen and pelvis. CONCLUSION: No disproportionately dilated loops of small large bowel. Inderjit Lew MD on January 12, 2017 at 6:19 Board Certified Radiologist. This report was verified electronically.
[2017-01-12 07:21] LABS: AUTOMATED NEUTROPHIL # 34.6 TH/MM3 (1.8-7.7); BASOPHIL % 0.1 % (0.0-2.0); EOSINOPHIL # 0.3 TH/MM3 (0-0.4); EOSINOPHIL % 0.7 % (0.0-4.0); HEMATOCRIT 27.5 % (35.0-46.0); LYMPHOCYTE # 1.5 TH/MM3 (1.0-4.8); MEAN CELL VOLUME 84.1 FL (80.0-100.0); MEAN CORPUSCULAR HEMOGLOBIN 27.5 PG (27.0-34.0); MEAN CORPUSCULAR HGB CONC 32.7 % (32.0-36.0); MONO % 4.7 % (0.0-8.0); NEUT % 90.5 % (16.0-70.0); PLATELET COUNT 524 TH/MM3 (150-450); RED BLOOD COUNT 3.27 MIL/MM3 (4.00-5.30); RED CELL DISTRIBUTION WIDTH 15.8 % (11.6-17.2); WHITE BLOOD COUNT 38.2 TH/MM3 (4.0-11.0)
[2017-01-12 07:23] LABS: HEMO FLAGS AUTO DIFF
[2017-01-12 07:31] LABS: CHLORIDE 108 MEQ/L (98-107); POTASSIUM 4.4 MEQ/L (3.5-5.1); SODIUM (NA) 140 MEQ/L (136-145)
[2017-01-12 07:39] LABS: ANION GAP 10 MEQ/L (5-15); BICARBONATE 21.7 MEQ/L (21.0-32.0); MAGNESIUM 2.3 MG/DL (1.5-2.5)
[2017-01-12 07:40] LABS: BLOOD UREA NITROGEN 19 MG/DL (7-18)
[2017-01-12 07:41] LABS: AST (GOT) 45 U/L (15-37); SCAN/DIFF AUTO DIFF CONFIRMED
[2017-01-12 07:42] LABS: ALT (GPT) 17 U/L (10-53); TOTAL BILIRUBIN ADULT 0.3 MG/DL (0.2-1.0)
[2017-01-12 07:43] LABS: GLOMERULAR FILTRATION RATE 69 ML/MIN (>89)
[2017-01-12 07:45] LABS: ALKALINE PHOSPHATASE 141 U/L (45-117)
[2017-01-12] MEDS: RESP: ALBUTEROL 2.5 MG/IPRATROPIUM 0.5 MG NEB (SCH) NEB ×3 (08:33→19:29)
[2017-01-12] MEDS: REMOVE OLD PATCH TD SCH (09:00)
[2017-01-12] MEDS: SODIUM CHLORIDE 0.9% FLUSH 5 ML FLUSH FLUSH SCH ×2 (09:00→22:12)
[2017-01-12] MEDS: LORATADINE 10 MG TAB PO SCH (11:52)
[2017-01-12] MEDS: DOCUSATE SODIUM 50 MG/SENNA 8.6 MG TAB PO SCH ×2 (11:52→22:12)
[2017-01-12] MEDS: EZETIMIBE 10 MG TAB PO SCH (11:52)
[2017-01-12] MEDS: GABAPENTIN 300 MG CAP PO SCH ×2 (11:52→22:11)
[2017-01-12] MEDS: VENLAFAXINE HCL XR 75 MG CAP PO SCH (11:53)
[2017-01-12] MEDS: DIVALPROEX SODIUM E.R. 500 MG TAB PO SCH ×2 (11:53→17:44)
[2017-01-12] MEDS: FAMOTIDINE 20 MG TAB PO SCH ×2 (11:53→22:11)
[2017-01-12] MEDS: NICOTINE 21 MG/24 HR PATCH TD SCH (11:54)
[2017-01-12] MEDS: SODIUM CHLORIDE 0.9% 10 ML VIAL IRRIGATION SCH (16:00)
--- NOTE | 2017-01-12 17:12 | HHI.CCPN ---
Subjective Remarks/Hospital Course 71-year-old female presented to emergency department for evaluation of right- sided chest pain, RUQ abdominal pain and shortness of breath. CT scan emergency room showed a 6 x 9cm abscess in the right retroperitoneal region behind the right kidney. Follow-up IVP study showed good drainage of contrast without any evidence of extravasation or a forniceal rupture. No evidence of any stones were identified. She just underwent IR drainage of perinephric abscess and is presently feeling better. Her white count is trending up and patient was hypotensive despite IV fluid boluses. Critical care medicine was consulted for management of hypotension/sepsis Objective Vital Signs Date Time Temp Pulse Resp B/P Pulse Ox O2 Delivery O2 Flow Rate FiO2 01/12/17 16:31 86 14 109/48 93 01/12/17 14:20 Venturi Mask 50 01/12/17 08:36 6.00 01/12/17 04:00 97.0 Intake and Output 01/11/17 01/11/17 01/12/17 08:00 16:00 00:00 Intake Total 420 ml 420 ml 5376 ml Output Total 0 ml 0 ml 700 ml Balance 420 ml 420 ml 4676 ml Result Diagram: 01/12/17 0550 01/12/17 0550 Imaging Last 24 hours Impressions Abdomen X-Ray 01/12/17 0600 Signed Impressions: Service Date/Time: Thursday, January 12, 2017 06:09 - CONCLUSION: No disproportionately dilated loops of small large bowel. Inderjit Lew MD A/P Problem List: (1) Intra-abdominal abscess ICD Code: K65.1 Status: Acute (2) Sepsis ICD Code: A41.9 Status: Acute (3) UTI (urinary tract infection) ICD Code: N39.0 Status: Acute Assessment and Plan Gram-negative sepsis - Due to retroperitoneal abscess - Dispose drainage - Escherichia coli - Sensitive to aztreonam - Management per ID Hypotension - Due to above - Central line placed yesterday - Continue IV fluids resuscitation - Levophed as needed to keep map above 65 Leukocytosis - Due to sepsis - WBC still trending up - Send a stool sample to rule out C. difficile Hypothyroidism - Levothyroxine Dyslipidemia - Zetia - Atorvastatin Tobacco use disorder - Nicotine patch - DuoNeb as needed DVT GI prophylaxis - Pepcid subcutaneous Lovenox Critical Care: The total critical care time was 35 minutes. Time to perform other separately billable procedures was not included in the critical care time. Problem Qualifiers (1) Sepsis: Qualified Code: A41.9 - Sepsis, due to unspecified organism Victor M Conn MD Jan 12, 2017 17:12
--- NOTE | 2017-01-12 17:24 | HHI.IDPN ---
Note Infectious Disease Note Patient developed hypotension when Levophed was d weaned and is now on levophed 4 mcg. On O2 via FM. Alert and communicating. Daughter and son at bedside. Abscess drainage catheter drainage decreased. Had BM this am. Afebrile. Feels r. flank pressure. No rash. Abscess fluid culture has E. coli. Reported itching after receiving Vancomycin. PAST MEDICAL HISTORY 1. COPD 2. Tobacco abuse 3. Hypothyroidism 4. Hypertension 5. Anxiety disorder 6. Bipolar disorder 7. Dyslipidemia 8. History of frequent urinary infections. 9. History of uterine cancer 40 years ago. 10. History of back surgery. 11. History of L4-L5 sympathectomy. 12. Gastroesophageal reflux disease 13. Peripheral neuropathy 14. Left knee endoscopy ALLERGIES PENICILLIN, PREDNISONE, MORPHINE, CODEINE, STEROIDS, VALIUM. ANTIBIOTICS Aztreonam OBJECTIVE: Vital Signs Date Time Temp Pulse Resp B/P Pulse Ox O2 Delivery O2 Flow Rate FiO2 01/12/17 16:31 86 14 109/48 93 01/12/17 16:16 86 14 117/48 92 01/12/17 16:01 92 16 113/47 91 01/12/17 16:01 92 16 113/47 91 01/12/17 15:46 88 13 114/44 91 01/12/17 15:46 88 13 114/44 91 01/12/17 15:31 88 15 112/52 92 01/12/17 15:31 88 15 112/52 92 01/12/17 15:16 86 13 105/47 93 01/12/17 15:16 86 13 105/47 93 01/12/17 15:01 86 14 102/48 93 01/12/17 15:01 86 14 102/48 93 01/12/17 14:46 86 13 96/46 93 01/12/17 14:46 86 13 96/46 93 01/12/17 14:31 86 13 79/49 93 01/12/17 14:31 86 13 79/49 93 01/12/17 14:20 92 Venturi Mask 50 01/12/17 14:16 90 16 129/54 94 01/12/17 14:16 90 16 129/54 94 01/12/17 14:01 80 13 100/47 98 01/12/17 14:01 80 13 100/47 98 01/12/17 13:46 78 13 96/39 97 01/12/17 13:46 78 13 96/39 97 01/12/17 13:31 82 13 94/40 97 01/12/17 13:31 82 13 94/40 97 01/12/17 13:16 88 21 102/46 97 01/12/17 13:16 88 21 102/46 97 01/12/17 13:01 86 18 102/45 97 01/12/17 13:01 86 18 102/45 97 01/12/17 12:46 92 28 115/61 95 01/12/17 12:46 92 28 115/61 95 01/12/17 12:31 94 27 126/55 93 01/12/17 12:31 94 27 126/55 93 01/12/17 12:16 94 29 133/55 95 01/12/17 12:16 94 29 133/55 95 01/12/17 12:01 98 29 103/65 84 01/12/17 12:01 98 29 103/65 84 01/12/17 12:00 98 25 86 01/12/17 11:46 88 12 107/47 98 01/12/17 11:31 86 13 108/45 97 01/12/17 11:16 92 19 112/51 95 01/12/17 11:01 94 17 112/44 78 01/12/17 10:46 92 15 125/47 96 01/12/17 10:31 90 15 118/50 97 01/12/17 10:15 96 21 121/53 90 01/12/17 10:00 100 23 111/58 91 01/12/17 09:45 88 14 103/44 93 01/12/17 09:30 90 13 108/45 93 01/12/17 09:15 90 13 97/46 93 01/12/17 09:00 90 14 105/41 92 01/12/17 08:45 92 14 108/47 93 01/12/17 08:36 95 Nasal Cannula 6.00 01/12/17 08:30 90 14 112/44 95 01/12/17 08:15 100 22 124/74 88 01/12/17 08:00 94 12 113/46 01/12/17 08:00 94 01/12/17 08:00 94 12 113/46 97 01/12/17 07:45 94 13 122/46 01/12/17 07:30 94 21 138/46 01/12/17 07:15 102 30 143/64 01/12/17 07:15 102 30 143/64 01/12/17 07:00 96 26 137/45 97 01/12/17 07:00 96 26 137/45 97 01/12/17 06:45 94 27 112/52 96 01/12/17 06:30 100 26 124/96 97 01/12/17 06:15 98 26 118/64 97 01/12/17 06:00 108 30 134/56 92 01/12/17 06:00 100 01/12/17 05:45 108 31 153/74 91 01/12/17 05:30 98 23 150/59 97 01/12/17 05:15 100 22 140/65 97 01/12/17 05:00 100 18 143/53 98 01/12/17 04:45 98 19 139/51 97 01/12/17 04:30 94 14 128/53 98 01/12/17 04:15 98 16 139/53 98 01/12/17 04:15 98 16 139/53 98 01/12/17 04:00 100 16 123/55 98 01/12/17 04:00 100 01/12/17 04:00 97.0 01/12/17 03:45 96 14 127/51 98 01/12/17 03:30 98 14 116/55 98 01/12/17 03:15 100 19 127/55 99 01/12/17 03:00 102 21 135/61 97 01/12/17 02:45 98 17 128/59 98 01/12/17 02:30 100 18 117/47 90 01/12/17 02:15 94 14 117/48 99 01/12/17 02:00 96 01/12/17 02:00 92 14 113/49 99 01/12/17 01:45 94 13 110/45 100 01/12/17 01:30 102 19 91/56 97 01/12/17 01:15 92 13 108/44 100 01/12/17 01:00 92 14 111/46 100 01/12/17 00:45 92 13 107/44 100 01/12/17 00:30 92 13 114/50 100 01/12/17 00:15 92 14 100 01/12/17 00:00 92 13 114/50 100 01/12/17 00:00 98.3 01/12/17 00:00 94 01/12/17 00:00 92 13 114/50 100 01/11/17 23:45 92 13 100 01/11/17 23:30 94 13 100 01/11/17 23:15 92 13 100 01/11/17 23:00 94 12 119/55 99 01/11/17 22:45 94 14 99 01/11/17 22:30 94 13 99 01/11/17 22:15 94 13 99 01/11/17 22:04 94 12 110/48 99 01/11/17 22:00 96 01/11/17 22:00 96 12 106/45 99 01/11/17 21:45 102 22 99 01/11/17 21:30 96 13 100 01/11/17 21:15 98 18 100 01/11/17 21:00 102 33 134/59 97 01/11/17 20:45 102 27 98 01/11/17 20:30 106 27 97 01/11/17 20:15 102 24 99 01/11/17 20:00 98 01/11/17 20:00 98 28 106/46 100 01/11/17 20:00 97.0 01/11/17 19:45 100 Partial Rebreather 10.00 01/11/17 18:00 102 23 118/52 72 01/11/17 17:50 98 20 120/48 79 01/11/17 17:40 96 22 116/49 92 01/11/17 17:38 98 23 119/53 92 01/11/17 17:30 100 29 122/61 99 01/11/17 17:20 98 22 120/45 98 01/11/17 01/11/17 01/12/17 15:00 23:00 07:00 Intake Total 420 ml 5376 ml 1315 ml Output Total 0 ml 700 ml 545 ml Balance 420 ml 4676 ml 770 ml Intake Oral 210 ml 200 ml 280 ml IV Total 210 ml 5176 ml 1035 ml Output Urine Total 0 ml 700 ml 475 ml Stool Total 0 ml Drainage Total 70 ml Laboratory Tests Test 01/11/17 01/12/17 04:16 05:50 White Blood Count 31.6 TH/MM3 38.2 TH/MM3 Red Blood Count 3.23 MIL/MM3 3.27 MIL/MM3 Hemoglobin 8.8 GM/DL 9.0 GM/DL Hematocrit 26.8 % 27.5 % Mean Corpuscular Volume 83.1 FL 84.1 FL Mean Corpuscular Hemoglobin 27.2 PG 27.5 PG Mean Corpuscular Hemoglobin 32.7 % 32.7 % Concent Red Cell Distribution Width 15.3 % 15.8 % Platelet Count 525 TH/MM3 524 TH/MM3 Mean Platelet Volume 7.1 FL 7.0 FL Neutrophils (%) (Auto) % 90.5 % Lymphocytes (%) (Auto) % 4.0 % Monocytes (%) (Auto) % 4.7 % Eosinophils (%) (Auto) % 0.7 % Basophils (%) (Auto) % 0.1 % Neutrophils # (Auto) TH/MM3 34.6 TH/MM3 Lymphocytes # (Auto) TH/MM3 1.5 TH/MM3 Monocytes # (Auto) TH/MM3 1.8 TH/MM3 Eosinophils # (Auto) TH/MM3 0.3 TH/MM3 Basophils # (Auto) TH/MM3 0.0 TH/MM3 CBC Comment AUTO DIFF AUTO DIFF Differential Total Cells 100 Counted Neutrophils % (Manual) 68 % Band Neutrophils % 25 % Lymphocytes % 4 % Monocytes % 3 % Neutrophils # (Manual) 29.4 TH/MM3 Differential Comment FINAL DIFF AUTO DIFF MANUAL CONFIRMED Toxic Granulation 2+ Platelet Estimate HIGH Platelet Morphology Comment NORMAL Ovalocytes 1+ Crenated Cell 2+ Laboratory Tests Test 01/11/17 01/11/17 01/11/17 01/11/17 04:16 06:08 13:05 19:05 Sodium Level 136 MEQ/L Potassium Level 4.6 MEQ/L Chloride Level 106 MEQ/L Carbon Dioxide Level 21.6 MEQ/L Anion Gap 8 MEQ/L Blood Urea Nitrogen 23 MG/DL Creatinine 1.10 MG/DL Estimat Glomerular Filtration 49 ML/MIN Rate Random Glucose 105 MG/DL Calcium Level 7.8 MG/DL Magnesium Level 2.1 MG/DL Total Bilirubin 0.4 MG/DL Aspartate Amino Transf 40 U/L (AST/SGOT) Alanine Aminotransferase 15 U/L (ALT/SGPT) Alkaline Phosphatase 107 U/L Total Protein 5.8 GM/DL Albumin 1.2 GM/DL Lactic Acid Level 1.6 mmol/L 1.2 mmol/L 1.0 mmol/L Test 01/12/17 05:50 Sodium Level 140 MEQ/L Potassium Level 4.4 MEQ/L Chloride Level 108 MEQ/L Carbon Dioxide Level 21.7 MEQ/L Anion Gap 10 MEQ/L Blood Urea Nitrogen 19 MG/DL Creatinine 0.82 MG/DL Estimat Glomerular Filtration 69 ML/MIN Rate Random Glucose 77 MG/DL Calcium Level 7.9 MG/DL Phosphorus Level 3.2 MG/DL Magnesium Level 2.3 MG/DL Total Bilirubin 0.3 MG/DL Aspartate Amino Transf 45 U/L (AST/SGOT) Alanine Aminotransferase 17 U/L (ALT/SGPT) Alkaline Phosphatase 141 U/L Total Protein 6.0 GM/DL Albumin 1.1 GM/DL Microbiology Date/Time Procedure Status Source Growth 01/09/17 08:45 Influenza Types A,B Antigen (RYAN) - Final Complete Nasal Washing NEGATIVE FOR FLU A AND B ANTIGEN.... 01/09/17 08:50 Aerobic Blood Culture - Preliminary Resulted Blood Peripheral NO GROWTH IN 2 DAYS 01/09/17 08:50 Anaerobic Blood Culture - Preliminary Resulted Blood Peripheral NO GROWTH IN 2 DAYS 01/09/17 08:55 Aerobic Blood Culture - Preliminary Resulted Blood Peripheral NO GROWTH IN 2 DAYS 01/09/17 08:55 Anaerobic Blood Culture - Preliminary Resulted Blood Peripheral NO GROWTH IN 2 DAYS 01/09/17 09:35 Urine Culture - Final Complete Urine Catheterized Urine Escherichia Coli 01/09/17 15:15 Gram Stain - Final Resulted Abscess Other 01/09/17 15:15 Wound Culture - Preliminary Resulted Gram Negative Mayur 01/09/17 15:15 Acid Fast Stain - Final Resulted Abscess Other NO ACID FAST BACILLI SEEN 01/09/17 15:15 Mycobacterial Culture Resulted Abscess Other Pending 01/09/17 15:15 Fungal Smear - Final Resulted Abscess Other NO FUNGAL ELEMENTS SEEN. 01/09/17 15:15 Fungal Culture Resulted Abscess Other Pending IMAGING: Abdomen X-Ray 01/12/17 0600 Signed Impressions: Service Date/Time: Thursday, January 12, 2017 06:09 - CONCLUSION: No disproportionately dilated loops of small large bowel. Inderjit Lew MD Retroperitoneal Abscess Drainage 01/11/17 0000 Signed Impressions: Service Date/Time: Wednesday, January 11, 2017 09:25 - CONCLUSION: Uncomplicated CT guided drainage. Jhonatan Cardenas MD Chest X-Ray 01/11/17 0000 Signed Impressions: Service Date/Time: Wednesday, January 11, 2017 18:11 - CONCLUSION: Right IJ central venous line has its tip at the atriocaval junction. No pneumothorax or other acute complication demonstrated. Mild bibasilar atelectasis. Som Alvarez MD Urogram 01/09/17 Signed Impressions: Service Date/Time: Monday, January 09, 2017 13:22 - CONCLUSION: 1. Slight degree of right hydroureter, etiology uncertain. 2. No leakage of the excreted contrast. Som Alvarez MD CT Angiography 01/09/17 Signed Impressions: Service Date/Time: Monday, January 09, 2017 10:48 - CONCLUSION: No pulmonary embolus. Trace failure suspected. Som Alvarez MD Abdomen/Pelvis CT 01/09/17 Signed Impressions: Service Date/Time: Monday, January 09, 2017 10:48 - CONCLUSION: 1. There is a retroperitoneal low collection involving the perirenal and posterior pararenal spaces on the right. It measures 6.2 x 6.0 x 9.6 cm and anteriorly displaces the right kidney. Imaging appearance is suspicious for an abscess. There is associated small volume of perihepatic free fluid in the peritoneal space. The right kidney otherwise demonstrates no abnormality. 2. Nonacute findings include severe atherosclerotic disease and cholelithiasis. Som Pettit MD PHYSICAL EXAMINATION GENERAL: No acute distress. HEENT: Extraocular movements grossly intact, pupils reactive to light. No icterus. Oropharynx has no visible lesions. Mucosa is moist. NECK: Supple without adenopathy or swelling. LUNGS: Clear breath sounds. HEART: Regular rate and rhythm without murmurs, rubs or gallops. ABDOMEN: Bowel sounds present, soft, no tenderness appreciated. Catheter at the left flank area has reddish rust colored drainage. EXTREMITIES: No clubbing or cyanosis or edema. SKIN: No diffuse rash. NEUROLOGIC: No gross focal findings. PSYCH: The patient is calm and cooperative. IMPRESSION 1. Retroperitoneal abscess/perinephric abscess. 2. Urinary tract infection . e.coli. 3. Severe Sepsis indicated by elevated heart rate, leukocytosis, source of infection likely urine and also retroperitoneal abscess. Also hypotension. 4. Acute kidney disease 5. Penicillin allergy. 6. Leukocytosis. WBC higher. RECOMMENDATIONS 1. Continue Aztreonam 2. Monitor temperature and white blood cell count 3. If any loose stools can check for c. diff 4. Consider repeating the CT of the abdomen/pelvis to check for undrained fluid collection in the abdomen if WBC does not show improvement. Graham Saldana MD Jan 12, 2017 17:24
[2017-01-12] MEDS: ACETAMINOPHEN/HYDROcodone 325 MG/5 MG TAB PO PRN (17:47)
[2017-01-12] MEDS: ATORVASTATIN 40 MG TAB PO SCH (22:12)
[2017-01-12] MEDS: ENOXAPARIN SODIUM 40 MG/0.4 ML SYRINGE SQ SCH (22:14)
[2017-01-13] VITALS (45 sets, daily range): BP systolic 79–151; BP diastolic 38–95; PULSE 75–130; RESP 11–28; TEMP 97.4–98.4; O2SAT 84–100
[2017-01-13] MEDS: AZTREONAM INJ 2,000 MG in SODIUM CHLORIDE 0.9% INJ 100 ML IV SCH ×3 (01:24→18:09)
[2017-01-13] MEDS: SODIUM CHLOR 0.9% 1000 ML INJ 1,000 ML IV SCH ×4 (01:24→23:35)
[2017-01-13] MEDS: LEVOTHYROXINE SODIUM 112 MCG TAB PO SCH (05:08)
[2017-01-13] MEDS: ACETAMINOPHEN/HYDROcodone 325 MG/5 MG TAB PO PRN (05:09)
[2017-01-13] MEDS ORDERED: CHLORHEXIDINE GLUCONATE 2 % 1 PACK (2 CLOTHS)(extra cloths) TOP PRN (06:30)
[2017-01-13 06:32] LABS: AUTOMATED NEUTROPHIL # 23.8 TH/MM3 (1.8-7.7); BASOPHIL % 0.1 % (0.0-2.0); EOSINOPHIL # 0.1 TH/MM3 (0-0.4); EOSINOPHIL % 0.4 % (0.0-4.0); HEMATOCRIT 25.5 % (35.0-46.0); LYMPH % 5.1 % (9.0-44.0); LYMPHOCYTE # 1.4 TH/MM3 (1.0-4.8); MEAN CORPUSCULAR HEMOGLOBIN 26.5 PG (27.0-34.0); MEAN CORPUSCULAR HGB CONC 31.9 % (32.0-36.0); MONO % 8.1 % (0.0-8.0); NEUT % 86.3 % (16.0-70.0); PLATELET COUNT 466 TH/MM3 (150-450); RED BLOOD COUNT 3.07 MIL/MM3 (4.00-5.30); RED CELL DISTRIBUTION WIDTH 15.4 % (11.6-17.2); WHITE BLOOD COUNT 27.5 TH/MM3 (4.0-11.0)
[2017-01-13 06:46] LABS: C. DIFF EPI 027 PRESUMPTIVE NEGATIVE (NEGATIVE); C. DIFF TOXIN PCR NEGATIVE (NEGATIVE)
[2017-01-13 06:47] LABS: CHLORIDE 109 MEQ/L (98-107); HEMO FLAGS AUTO DIFF; POTASSIUM 4.3 MEQ/L (3.5-5.1); SODIUM (NA) 139 MEQ/L (136-145)
[2017-01-13 06:54] LABS: ANION GAP 9 MEQ/L (5-15); BICARBONATE 20.8 MEQ/L (21.0-32.0); BLOOD UREA NITROGEN 15 MG/DL (7-18); MAGNESIUM 2.3 MG/DL (1.5-2.5)
[2017-01-13 06:57] LABS: ALT (GPT) 13 U/L (10-53); AST (GOT) 37 U/L (15-37); GLOMERULAR FILTRATION RATE 101 ML/MIN (>89)
[2017-01-13 06:58] LABS: TOTAL BILIRUBIN ADULT 0.3 MG/DL (0.2-1.0)
[2017-01-13 06:59] LABS: ALKALINE PHOSPHATASE 151 U/L (45-117)
[2017-01-13 07:11] LABS: SCAN/DIFF AUTO DIFF CONFIRMED
[2017-01-13] MEDS: RESP: ALBUTEROL 2.5 MG/IPRATROPIUM 0.5 MG NEB (SCH) NEB ×3 (07:25→20:00)
[2017-01-13] MEDS: REMOVE OLD PATCH TD SCH (09:00)
[2017-01-13] MEDS: SODIUM CHLORIDE 0.9% FLUSH 5 ML FLUSH FLUSH SCH ×2 (09:00→20:09)
[2017-01-13] MEDS ORDERED: PHARMACY ORDERED LAB XX ONE (09:45)
[2017-01-13] MEDS: FAMOTIDINE 20 MG TAB PO SCH ×2 (10:33→20:08)
[2017-01-13] MEDS: DIVALPROEX SODIUM E.R. 500 MG TAB PO SCH ×4 (10:33→18:08)
[2017-01-13] MEDS: ACETAMINOPHEN/HYDROcodone 325 MG/7.5 MG TAB PO PRN ×2 (10:33→23:40)
[2017-01-13] MEDS: GABAPENTIN 300 MG CAP PO SCH ×2 (10:33→18:09)
[2017-01-13] MEDS: EZETIMIBE 10 MG TAB PO SCH (10:34)
[2017-01-13] MEDS: DOCUSATE SODIUM 50 MG/SENNA 8.6 MG TAB PO SCH ×2 (10:34→20:08)
[2017-01-13] MEDS: LORATADINE 10 MG TAB PO SCH (10:34)
[2017-01-13] MEDS: VENLAFAXINE HCL XR 75 MG CAP PO SCH (10:34)
[2017-01-13] MEDS: NICOTINE 21 MG/24 HR PATCH TD SCH (10:37)
[2017-01-13] MEDS: SODIUM CHLORIDE 0.9% 10 ML VIAL IRRIGATION SCH (16:00)
--- NOTE | 2017-01-13 17:33 | HHI.CCPN ---
Subjective Remarks/Hospital Course 71-year-old female presented to emergency department for evaluation of right- sided chest pain, RUQ abdominal pain and shortness of breath. CT scan emergency room showed a 6 x 9cm abscess in the right retroperitoneal region behind the right kidney. Follow-up IVP study showed good drainage of contrast without any evidence of extravasation or a forniceal rupture. No evidence of any stones were identified. She just underwent IR drainage of perinephric abscess and is presently feeling better. Her white count is trending up and patient was hypotensive despite IV fluid boluses. Critical care medicine was consulted for management of hypotension/sepsis Objective Vital Signs Date Time Temp Pulse Resp B/P Pulse Ox O2 Delivery O2 Flow Rate FiO2 01/13/17 11:45 98.0 86 14 119/56 96 01/13/17 09:20 Nasal Cannula 6.00 01/13/17 07:00 50 Intake and Output 01/12/17 01/12/17 01/13/17 08:00 16:00 00:00 Intake Total 1315 ml 2439 ml Output Total 545 ml 1230 ml Balance 770 ml 1209 ml Result Diagram: 01/13/1762001/13/17 06 Imaging Last 24 hours Impressions Abdomen X-Ray 01/12/17 0600 Signed Impressions: Service Date/Time: Thursday, January 12, 2017 06:09 - CONCLUSION: No disproportionately dilated loops of small large bowel. Inderjit Lew MD A/P Problem List: (1) Intra-abdominal abscess ICD Code: K65.1 Status: Acute (2) Sepsis ICD Code: A41.9 Status: Acute (3) UTI (urinary tract infection) ICD Code: N39.0 Status: Acute Assessment and Plan Gram-negative sepsis - Due to retroperitoneal abscess - Dispose drainage - Escherichia coli - Sensitive to aztreonam - Management per ID - Improving Hypotension - Due to above - Central line placed yesterday - Continue IV fluids resuscitation - Levophed as needed to keep map above 65 - Resolved, off pressors Leukocytosis - Due to sepsis - WBC improving Hypothyroidism - Levothyroxine Dyslipidemia - Zetia - Atorvastatin Tobacco use disorder - Nicotine patch - DuoNeb as needed DVT GI prophylaxis - Pepcid subcutaneous Lovenox Level III Patient has been comfortable on nasal cannula. Hemodynamically stable not on pressors. Critical care medicine will sign off. Please reconsult us if needed. Thank you very much for allowing us to participate in care of this pleasant lady Problem Qualifiers (1) Sepsis: Qualified Code: A41.9 - Sepsis, due to unspecified organism Victor M Conn MD Jan 13, 2017 17:32
[2017-01-13] MEDS: ATORVASTATIN 40 MG TAB PO SCH (20:08)
[2017-01-13] MEDS: ENOXAPARIN SODIUM 40 MG/0.4 ML SYRINGE SQ SCH (20:08)
[2017-01-14] VITALS (49 sets, daily range): BP systolic 110–160; BP diastolic 44–75; PULSE 84–138; RESP 12–23; TEMP 97.6–98.5; O2SAT 90–98
[2017-01-14] MEDS: AZTREONAM INJ 2,000 MG in SODIUM CHLORIDE 0.9% INJ 100 ML IV SCH ×3 (01:26→17:16)
[2017-01-14] MEDS: ACETAMINOPHEN/HYDROcodone 325 MG/5 MG TAB PO PRN (02:37)
[2017-01-14] MEDS ORDERED: hydrOXYzine HCL 25 MG TAB PO ONE (04:00)
[2017-01-14] MEDS: LEVOTHYROXINE SODIUM 112 MCG TAB PO SCH (04:15)
[2017-01-14] MEDS: CHLORHEXIDINE GLUCONATE 2 % 1 PACK (2 CLOTHS)(taper/protocol) TOP SCH (04:16)
[2017-01-14 05:10] LABS: AUTOMATED NEUTROPHIL # 22.9 TH/MM3 (1.8-7.7); BASOPHIL # 0.1 TH/MM3 (0-0.2); BASOPHIL % 0.3 % (0.0-2.0); EOSINOPHIL # 0.2 TH/MM3 (0-0.4); EOSINOPHIL % 0.9 % (0.0-4.0); HEMATOCRIT 27.1 % (35.0-46.0); LYMPHOCYTE # 1.3 TH/MM3 (1.0-4.8); MEAN CELL VOLUME 83.8 FL (80.0-100.0); MEAN CORPUSCULAR HEMOGLOBIN 26.9 PG (27.0-34.0); MEAN CORPUSCULAR HGB CONC 32.1 % (32.0-36.0); MONO % 8.1 % (0.0-8.0); NEUT % 85.7 % (16.0-70.0); PLATELET COUNT 424 TH/MM3 (150-450); RED BLOOD COUNT 3.24 MIL/MM3 (4.00-5.30); RED CELL DISTRIBUTION WIDTH 15.6 % (11.6-17.2); WHITE BLOOD COUNT 26.7 TH/MM3 (4.0-11.0)
[2017-01-14 05:15] LABS: HEMO FLAGS AUTO DIFF
[2017-01-14 05:34] LABS: CHLORIDE 109 MEQ/L (98-107); POTASSIUM 4.2 MEQ/L (3.5-5.1); SODIUM (NA) 139 MEQ/L (136-145)
[2017-01-14 05:38] LABS: ANION GAP 10 MEQ/L (5-15); BICARBONATE 20.5 MEQ/L (21.0-32.0); MAGNESIUM 2.2 MG/DL (1.5-2.5)
[2017-01-14 05:39] LABS: BLOOD UREA NITROGEN 14 MG/DL (7-18)
[2017-01-14 05:41] LABS: ALT (GPT) 12 U/L (10-53); AST (GOT) 36 U/L (15-37)
[2017-01-14 05:42] LABS: GLOMERULAR FILTRATION RATE 114 ML/MIN (>89)
[2017-01-14 05:43] LABS: TOTAL BILIRUBIN ADULT 0.3 MG/DL (0.2-1.0)
[2017-01-14 05:44] LABS: ALKALINE PHOSPHATASE 141 U/L (45-117)
[2017-01-14] MEDS: RESP: ALBUTEROL 2.5 MG/IPRATROPIUM 0.5 MG NEB (SCH) NEB ×2 (07:15→12:14)
[2017-01-14 07:53] LABS: BANDS 17 % (0-6); EOSINOPHILS 1 % (0-4); METAMYELOCYTES 1 % (0-1); NEUTROPHIL # MANUAL DIFF 21.9 TH/MM3 (1.8-7.7); POLYS (SEG NEUTROPHILS) 64 % (16-70); WBC DIFF SAMPLE 100
[2017-01-14 07:54] LABS: OVALOCYTES 1+ (NORMAL); PLATELET ESTIMATE SMEAR HIGH (NORMAL); PLATELET MORPHOLOGY NORMAL (NORMAL); ROULEAUX PRESENT (NORMAL); SCAN/DIFF FINAL DIFF MANUAL
[2017-01-14] MEDS: SODIUM CHLOR 0.9% 1000 ML INJ 1,000 ML IV SCH ×2 (08:30→16:59)
[2017-01-14] MEDS: REMOVE OLD PATCH TD SCH (09:00)
[2017-01-14] MEDS: METOPROLOL TARTRATE 25 MG TAB PO SCH (09:41)
[2017-01-14] MEDS: GABAPENTIN 300 MG CAP PO SCH ×3 (09:42→17:16)
[2017-01-14] MEDS: DOCUSATE SODIUM 50 MG/SENNA 8.6 MG TAB PO SCH (09:42)
[2017-01-14] MEDS: FAMOTIDINE 20 MG TAB PO SCH ×2 (09:42→20:41)
[2017-01-14] MEDS: EZETIMIBE 10 MG TAB PO SCH (09:42)
[2017-01-14] MEDS: NICOTINE 21 MG/24 HR PATCH TD SCH (09:42)
[2017-01-14] MEDS: VENLAFAXINE HCL XR 75 MG CAP PO SCH (09:42)
[2017-01-14] MEDS: DIVALPROEX SODIUM E.R. 500 MG TAB PO SCH ×3 (09:42→17:16)
[2017-01-14] MEDS: SODIUM CHLORIDE 0.9% FLUSH 5 ML FLUSH FLUSH SCH ×2 (09:43→20:42)
[2017-01-14] MEDS: LORATADINE 10 MG TAB PO SCH (09:43)
[2017-01-14] MEDS: BISACODYL 10 MG SUPP PR PRN (15:03)
--- NOTE | 2017-01-14 15:05 | HHI.IDPN ---
Note Infectious Disease Note Patient has sinus tachycardia. Alert and communicating. Abscess drainage catheter drainage decreased. 10ml today. Had BM this am. Afebrile. Feels r. flank pressure. No rash. PAST MEDICAL HISTORY 1. COPD 2. Tobacco abuse 3. Hypothyroidism 4. Hypertension 5. Anxiety disorder 6. Bipolar disorder 7. Dyslipidemia 8. History of frequent urinary infections. 9. History of uterine cancer 40 years ago. 10. History of back surgery. 11. History of L4-L5 sympathectomy. 12. Gastroesophageal reflux disease 13. Peripheral neuropathy 14. Left knee endoscopy ALLERGIES PENICILLIN, PREDNISONE, MORPHINE, CODEINE, STEROIDS, VALIUM. ANTIBIOTICS Aztreonam OBJECTIVE: Vital Signs Date Time Temp Pulse Resp B/P Pulse Ox O2 Delivery O2 Flow Rate FiO2 01/14/17 13:00 124 12 126/53 97 01/14/17 12:03 124 13 122/49 95 01/14/17 12:00 98.2 124 12 117/47 95 01/14/17 11:00 130/44 01/14/17 10:00 98 14 120/49 98 01/14/17 09:00 124 18 149/59 93 01/14/17 08:00 98.0 122 19 132/60 95 01/14/17 08:00 122 01/14/17 07:17 98 Partial Rebreather 60 01/14/17 07:00 Simple Mask 7.00 01/14/17 07:00 138 12 124/56 97 01/14/17 06:00 113 16 124/61 98 01/14/17 05:00 122 13 138/53 98 01/14/17 04:00 97.7 126 22 137/64 98 01/14/17 03:37 19 01/14/17 03:00 124 15 134/60 98 01/14/17 02:00 126 23 160/66 96 01/14/17 01:00 123 15 140/55 98 01/14/17 00:40 18 01/14/17 00:00 98.5 126 20 130/62 97 01/13/17 23:00 104 17 123/58 98 01/13/17 22:00 90 16 113/90 96 01/13/17 20:00 112 01/13/17 20:00 98.4 116 15 135/95 98 01/13/17 19:23 126 22 135/95 97 01/13/17 19:23 96 Partial Rebreather 10.00 01/13/17 19:01 130 24 126/78 93 01/13/17 19:00 93 Humidified 01/13/17 01/13/17 01/14/17 15:00 23:00 07:00 Intake Total 202 ml 1034 ml Output Total 410 ml 525 ml Balance -208 ml 509 ml Intake Oral 120 ml 240 ml IV Total 82 ml 794 ml Output Urine Total 400 ml 525 ml Drainage Total 10 ml # Bowel Movements 1 1 Laboratory Tests Test 01/13/17 01/14/17 06:21 04:42 White Blood Count 27.5 TH/MM3 26.7 TH/MM3 Red Blood Count 3.07 MIL/MM3 3.24 MIL/MM3 Hemoglobin 8.1 GM/DL 8.7 GM/DL Hematocrit 25.5 % 27.1 % Mean Corpuscular Volume 83.0 FL 83.8 FL Mean Corpuscular Hemoglobin 26.5 PG 26.9 PG Mean Corpuscular Hemoglobin 31.9 % 32.1 % Concent Red Cell Distribution Width 15.4 % 15.6 % Platelet Count 466 TH/MM3 424 TH/MM3 Mean Platelet Volume 6.7 FL 7.1 FL Neutrophils (%) (Auto) 86.3 % 85.7 % Lymphocytes (%) (Auto) 5.1 % 5.0 % Monocytes (%) (Auto) 8.1 % 8.1 % Eosinophils (%) (Auto) 0.4 % 0.9 % Basophils (%) (Auto) 0.1 % 0.3 % Neutrophils # (Auto) 23.8 TH/MM3 22.9 TH/MM3 Lymphocytes # (Auto) 1.4 TH/MM3 1.3 TH/MM3 Monocytes # (Auto) 2.2 TH/MM3 2.2 TH/MM3 Eosinophils # (Auto) 0.1 TH/MM3 0.2 TH/MM3 Basophils # (Auto) 0.0 TH/MM3 0.1 TH/MM3 CBC Comment AUTO DIFF AUTO DIFF Differential Comment AUTO DIFF FINAL DIFF CONFIRMED MANUAL Differential Total Cells 100 Counted Neutrophils % (Manual) 64 % Band Neutrophils % 17 % Lymphocytes % 6 % Monocytes % 11 % Eosinophils % 1 % Neutrophils # (Manual) 21.9 TH/MM3 Metamyelocytes 1 % Platelet Estimate HIGH Platelet Morphology Comment NORMAL Ovalocytes 1+ Rouleau PRESENT Laboratory Tests Test 01/13/17 01/14/17 06:21 04:42 Sodium Level 139 MEQ/L 139 MEQ/L Potassium Level 4.3 MEQ/L 4.2 MEQ/L Chloride Level 109 MEQ/L 109 MEQ/L Carbon Dioxide Level 20.8 MEQ/L 20.5 MEQ/L Anion Gap 9 MEQ/L 10 MEQ/L Blood Urea Nitrogen 15 MG/DL 14 MG/DL Creatinine 0.59 MG/DL 0.53 MG/DL Estimat Glomerular Filtration 101 ML/MIN 114 ML/MIN Rate Random Glucose 89 MG/DL 81 MG/DL Calcium Level 7.9 MG/DL 7.9 MG/DL Phosphorus Level 3.0 MG/DL 3.3 MG/DL Magnesium Level 2.3 MG/DL 2.2 MG/DL Total Bilirubin 0.3 MG/DL 0.3 MG/DL Aspartate Amino Transf 37 U/L 36 U/L (AST/SGOT) Alanine Aminotransferase 13 U/L 12 U/L (ALT/SGPT) Alkaline Phosphatase 151 U/L 141 U/L Total Protein 5.2 GM/DL 5.3 GM/DL Albumin 0.9 GM/DL 0.9 GM/DL Microbiology Date/Time Procedure Status Source Growth 01/09/17 08:45 Influenza Types A,B Antigen (RYAN) - Final Complete Nasal Washing NEGATIVE FOR FLU A AND B ANTIGEN.... 01/09/17 08:50 Aerobic Blood Culture - Preliminary Resulted Blood Peripheral NO GROWTH IN 2 DAYS 01/09/17 08:50 Anaerobic Blood Culture - Preliminary Resulted Blood Peripheral NO GROWTH IN 2 DAYS 01/09/17 08:55 Aerobic Blood Culture - Preliminary Resulted Blood Peripheral NO GROWTH IN 2 DAYS 01/09/17 08:55 Anaerobic Blood Culture - Preliminary Resulted Blood Peripheral NO GROWTH IN 2 DAYS 01/09/17 09:35 Urine Culture - Final Complete Urine Catheterized Urine Escherichia Coli 01/09/17 15:15 Gram Stain - Final Resulted Abscess Other 01/09/17 15:15 Wound Culture - Preliminary Resulted Gram Negative Mayur 01/09/17 15:15 Acid Fast Stain - Final Resulted Abscess Other NO ACID FAST BACILLI SEEN 01/09/17 15:15 Mycobacterial Culture Resulted Abscess Other Pending 01/09/17 15:15 Fungal Smear - Final Resulted Abscess Other NO FUNGAL ELEMENTS SEEN. 01/09/17 15:15 Fungal Culture Resulted Abscess Other Pending IMAGING: Abdomen X-Ray 01/12/17 0600 Signed Impressions: Service Date/Time: Thursday, January 12, 2017 06:09 - CONCLUSION: No disproportionately dilated loops of small large bowel. Inderjit Lew MD Retroperitoneal Abscess Drainage 01/11/17 Signed Impressions: Service Date/Time: Wednesday, January 11, 2017 09:25 - CONCLUSION: Uncomplicated CT guided drainage. Jhonatan Cardenas MD Chest X-Ray 01/11/17 Signed Impressions: Service Date/Time: Wednesday, January 11, 2017 18:11 - CONCLUSION: Right IJ central venous line has its tip at the atriocaval junction. No pneumothorax or other acute complication demonstrated. Mild bibasilar atelectasis. Som Alvarez MD Urogram 01/09/17 Signed Impressions: Service Date/Time: Monday, January 09, 2017 13:22 - CONCLUSION: 1. Slight degree of right hydroureter, etiology uncertain. 2. No leakage of the excreted contrast. Som Alvarez MD CT Angiography 01/09/17 Signed Impressions: Service Date/Time: Monday, January 09, 2017 10:48 - CONCLUSION: No pulmonary embolus. Trace failure suspected. Som Alvarez MD Abdomen/Pelvis CT 01/09/17 Signed Impressions: Service Date/Time: Monday, January 09, 2017 10:48 - CONCLUSION: 1. There is a retroperitoneal low collection involving the perirenal and posterior pararenal spaces on the right. It measures 6.2 x 6.0 x 9.6 cm and anteriorly displaces the right kidney. Imaging appearance is suspicious for an abscess. There is associated small volume of perihepatic free fluid in the peritoneal space. The right kidney otherwise demonstrates no abnormality. 2. Nonacute findings include severe atherosclerotic disease and cholelithiasis. Som Pettit MD PHYSICAL EXAMINATION GENERAL: No acute distress. HEENT: Extraocular movements grossly intact, pupils reactive to light. No icterus. Oropharynx has no visible lesions. Mucosa is moist. NECK: Supple without adenopathy or swelling. LUNGS: Clear. HEART: Regular rate and rhythm without murmurs, rubs or gallops. ABDOMEN: Bowel sounds present, soft, no tenderness appreciated. Catheter at the left flank area has reddish rust colored drainage. EXTREMITIES: No clubbing or cyanosis, trace edema. SKIN: No diffuse rash. NEUROLOGIC: No gross focal findings. PSYCH: The patient is calm and cooperative. IMPRESSION 1. Retroperitoneal abscess/perinephric abscess. E. coli. 2. Urinary tract infection . e.coli. 3. Severe Sepsis indicated by elevated heart rate, leukocytosis, source of infection likely urine and also retroperitoneal abscess. Also hypotension. 4. Acute kidney disease 5. Penicillin allergy. 6. Leukocytosis. WBC still elevated. RECOMMENDATIONS 1. Continue Aztreonam 2. Monitor temperature and white blood cell count 3. Repeat the CT of the abdomen/pelvis to check for undrained fluid collection in the abdomen. Graham Saldana MD Jan 14, 2017 15:04
[2017-01-14] MEDS: RESP: ALBUTEROL 2.5 MG/IPRATROPIUM 0.5 MG NEB (PRN) NEB (15:37)
--- NOTE | 2017-01-14 15:48 | HHI.PR ---
Subjective Remarks Follow-up retroperitoneal abscess/tachycardia 01/14/17-patient seen and examined, currently afebrile and denies any abdominal pain. Report shortness of breath but no chest pain. Sustained tachycardia Objective Vitals Vital Signs Date Time Temp Pulse Resp B/P Pulse Ox O2 Delivery O2 Flow Rate FiO2 01/14/17 13:00 124 12 126/53 97 01/14/17 12:03 124 13 122/49 95 01/14/17 12:00 98.2 124 12 117/47 95 01/14/17 11:00 130/44 01/14/17 10:00 98 14 120/49 98 01/14/17 09:00 124 18 149/59 93 01/14/17 08:00 98.0 122 19 132/60 95 01/14/17 08:00 122 01/14/17 07:17 98 Partial Rebreather 60 01/14/17 07:00 Simple Mask 7.00 01/14/17 07:00 138 12 124/56 97 01/14/17 06:00 113 16 124/61 98 01/14/17 05:00 122 13 138/53 98 01/14/17 04:00 97.7 126 22 137/64 98 01/14/17 03:37 19 01/14/17 03:00 124 15 134/60 98 01/14/17 02:00 126 23 160/66 96 01/14/17 01:00 123 15 140/55 98 01/14/17 00:40 18 01/14/17 00:00 98.5 126 20 130/62 97 01/13/17 23:00 104 17 123/58 98 01/13/17 22:00 90 16 113/90 96 01/13/17 20:00 112 01/13/17 20:00 98.4 116 15 135/95 98 01/13/17 19:23 126 22 135/95 97 01/13/17 19:23 96 Partial Rebreather 10.00 01/13/17 19:01 130 24 126/78 93 01/13/17 19:00 93 Humidified I/O 01/13/17 01/13/17 01/13/17 01/14/17 01/14/17 01/14/17 07:00 15:00 23:00 07:00 15:00 23:00 Intake Total 680 ml 202 ml 1034 ml Output Total 400 ml 410 ml 525 ml Balance 280 ml -208 ml 509 ml Intake Oral 120 ml 120 ml 240 ml IV Total 560 ml 82 ml 794 ml Output Urine Total 400 ml 400 ml 525 ml Drainage Total 10 ml # Bowel Movements 2 1 1 Result Diagram: 01/14/1744101/14/17441 Imaging Last Impressions Abdomen X-Ray 01/12/17 0600 Signed Impressions: Service Date/Time: Thursday, January 12, 2017 06:09 - CONCLUSION: No disproportionately dilated loops of small large bowel. Inderjit Lew MD Retroperitoneal Abscess Drainage 01/11/17 0000 Signed Impressions: Service Date/Time: Wednesday, January 11, 2017 09:25 - CONCLUSION: Uncomplicated CT guided drainage. Jhonatan Cardenas MD Chest X-Ray 01/11/17 0000 Signed Impressions: Service Date/Time: Wednesday, January 11, 2017 18:11 - CONCLUSION: Right IJ central venous line has its tip at the atriocaval junction. No pneumothorax or other acute complication demonstrated. Mild bibasilar atelectasis. Som Alvarez MD Urogram 01/09/17 0000 Signed Impressions: Service Date/Time: Monday, January 09, 2017 13:22 - CONCLUSION: 1. Slight degree of right hydroureter, etiology uncertain. 2. No leakage of the excreted contrast. Som Alvarez MD CT Angiography 01/09/17 0000 Signed Impressions: Service Date/Time: Monday, January 09, 2017 10:48 - CONCLUSION: No pulmonary embolus. Trace failure suspected. Som Alvarez MD Abdomen/Pelvis CT 01/09/17 0000 Signed Impressions: Service Date/Time: Monday, January 09, 2017 10:48 - CONCLUSION: 1. There is a retroperitoneal low collection involving the perirenal and posterior pararenal spaces on the right. It measures 6.2 x 6.0 x 9.6 cm and anteriorly displaces the right kidney. Imaging appearance is suspicious for an abscess. There is associated small volume of perihepatic free fluid in the peritoneal space. The right kidney otherwise demonstrates no abnormality. 2. Nonacute findings include severe atherosclerotic disease and cholelithiasis. Som Pettit MD Objective Remarks GENERAL: NAD SKIN: Warm and dry. HEAD: Normocephalic. EYES: No scleral icterus. No injection or drainage. NECK: Supple, trachea midline. No JVD or lymphadenopathy. CARDIOVASCULAR: Regular rate and rhythm without murmurs, gallops, or rubs. RESPIRATORY: Breath sounds equal bilaterally. No accessory muscle use. GASTROINTESTINAL: Abdomen soft, non-tender, nondistended. Drain in place MUSCULOSKELETAL: No cyanosis, or edema. BACK: Nontender without obvious deformity. No CVA tenderness. A/P Problem List: (1) Intra-abdominal abscess ICD Code: K65.1 Status: Acute (2) Sepsis ICD Code: A41.9 Status: Acute (3) UTI (urinary tract infection) ICD Code: N39.0 Status: Acute (4) Tachycardia ICD Code: R00.0 Status: Acute Assessment and Plan 71 year-old female with 1-Kfbe-eqbcunkx sepsis: Secondary to intra-abdominal abscess. Currently on antibiotics 1-Ztdnn-zuxughlyj abscess: Currently aztreonam per ID and follow cultures. Monitor drain output. Repeat abdominal CT/pelvics 01/14/17 3-Sustained tachycardia: Despite Lopressor 12.5 mg daily started today no improvement, will start Lopressor IV push and continue telemetry monitoring.Correct all electrolyte abnormalities 4-Hypothyroidism: Continue Levothyroxine 5-Dyslipidemia: Zetia and Atorvastatin 6-Tobacco use disorder - Nicotine patch - DuoNeb as needed 7-DVT GI prophylaxis - Pepcid subcutaneous Lovenox Total critical care time spent over 35 minutes Problem Qualifiers (1) Sepsis: Qualified Code: A41.9 - Sepsis, due to unspecified organism Az Montes MD Jan 14, 2017 15:48
[2017-01-14] MEDS ORDERED: DOCUSATE SODIUM 50 MG/SENNA 8.6 MG TAB PO PRN (16:00)
[2017-01-14] MEDS: SODIUM CHLORIDE 0.9% 10 ML VIAL IRRIGATION SCH (16:00)
[2017-01-14] MEDS: METOPROLOL TARTRATE 5 MG/5 ML VIAL IV PUSH PRN ×3 (16:05→23:12)
--- NOTE | 2017-01-14 18:13 | EKG ---
Date Performed: 01/14/2017 Time Performed: 03:07:44 PTAGE: 71 years EKG: Sinus tachycardia Lateral T wave changes are nonspecific Low QRS voltages in precordial jamie ds When compared to previous tracing, there has been an overall Reduction in voltage. Consider and ex clude pericardial effusion, exaserbation of COPD, Amongst other causes. Lateral ST segment depression has improved. Clinical correlation will be important to assess the serial change. Borderline ECG PREVIOUS TRACING : 01/09/2017 08.43 DOCTOR: Purnima Montes Interpretating Date/Time 01/14/2017 18:12:19
--- NOTE | 2017-01-14 18:30 | RADHPO ---
EXAM DATE/TIME: 01/14/2017 16:45 [facility] COMPARISON: CT ABDOMEN & PELVIS W CONTRAST, January 09, 2017, 10:48. CT ABSCESS DRAINAGE VANESSA/RETRO, January 11 7, 9:25. INDICATIONS : Evaluate abscess drain. ORAL CONTRAST: No oral contrast ingested. RADIATION DOSE: 16.40 CTDIvol (mGy) MEDICAL HISTORY : Cardiovascular disease. Chronic obstructive pulmonary disease. SURGICAL HISTORY : Hysterectomy. ENCOUNTER: Initial ACUITY: 1 day PAIN SCALE: 4/10 LOCATION: Left abdomen TECHNIQUE: Volumetric scanning of the abdomen was performed. Using automated exposure control and adjustment of the mA and/or kV according to patient size, radiation dose was kept as low as reasonably achievable to obtain optimal diagnostic quality images. FINDINGS: There is a pigtail catheter seen in the posterior perirenal space. There is some minimal induration in this region. The previously seen abscess has resolved. The liver, spleen, pancreas and adrenal glands are normal. The kidneys appear normal for a noncontra st CT examination. There is high density material seen within the gallbladder likely related to gall stones. There are mild bilateral pleural effusions. There are accompanying areas of atelectasis seen at the lung bases. Atherosclerotic calcifications are seen throughout the arterial system. No aneur ysm is seen. There is some edema within the superficial tissues at the lateral aspects of the abdome n and pelvis in the subcutaneous fat. CONCLUSION: Pigtail catheter in place with only minimal increased density seen in the posterior right perirenal s pace. The previously seen large fluid collection is largely resolved. Som Lewis MD on January 14, 2017 at 17:58 Board Certified Radiologist. This report was verified electronically.
[2017-01-14] MEDS: ATORVASTATIN 40 MG TAB PO SCH (20:41)
[2017-01-14] MEDS: LACTOBACILLUS ACIDOPHILUS TAB PO SCH (20:41)
[2017-01-14] MEDS: ENOXAPARIN SODIUM 40 MG/0.4 ML SYRINGE SQ SCH (20:42)
[2017-01-15] VITALS (43 sets, daily range): BP systolic 133–157; BP diastolic 44–79; PULSE 74–128; RESP 11–26; TEMP 97.5–98.8; O2SAT 90–100
[2017-01-15] MEDS: AZTREONAM INJ 2,000 MG in SODIUM CHLORIDE 0.9% INJ 100 ML IV SCH ×3 (01:25→17:39)
[2017-01-15] MEDS: METOPROLOL TARTRATE 5 MG/5 ML VIAL IV PUSH PRN ×2 (01:26→12:48)
[2017-01-15] MEDS: ACETAMINOPHEN/HYDROcodone 325 MG/5 MG TAB PO PRN (01:27)
[2017-01-15 05:16] LABS: BICARBONATE 19.7 MEQ/L (21.0-32.0)
[2017-01-15 05:28] LABS: AUTOMATED NEUTROPHIL # 19.9 TH/MM3 (1.8-7.7); BASOPHIL % 0.1 % (0.0-2.0); EOSINOPHIL # 0.3 TH/MM3 (0-0.4); EOSINOPHIL % 1.1 % (0.0-4.0); HEMATOCRIT 28.2 % (35.0-46.0); LYMPH % 6.3 % (9.0-44.0); LYMPHOCYTE # 1.5 TH/MM3 (1.0-4.8); MEAN CELL VOLUME 82.6 FL (80.0-100.0); MEAN CORPUSCULAR HEMOGLOBIN 26.5 PG (27.0-34.0); MEAN CORPUSCULAR HGB CONC 32.1 % (32.0-36.0); MONO % 11.3 % (0.0-8.0); NEUT % 81.2 % (16.0-70.0); PLATELET COUNT 498 TH/MM3 (150-450); RED BLOOD COUNT 3.42 MIL/MM3 (4.00-5.30); RED CELL DISTRIBUTION WIDTH 15.4 % (11.6-17.2); WHITE BLOOD COUNT 24.5 TH/MM3 (4.0-11.0)
[2017-01-15 05:29] LABS: HEMO FLAGS AUTO DIFF
[2017-01-15] MEDS: LEVOTHYROXINE SODIUM 112 MCG TAB PO SCH (06:28)
[2017-01-15] MEDS: SODIUM CHLOR 0.9% 1000 ML INJ 1,000 ML IV SCH (06:29)
[2017-01-15] MEDS: CHLORHEXIDINE GLUCONATE 2 % 1 PACK (2 CLOTHS)(taper/protocol) TOP SCH (06:29)
[2017-01-15 08:04] LABS: BANDS 3 % (0-6); METAMYELOCYTES 2 % (0-1); MYELOCYTES 6 % (0-0); NEUTROPHIL # MANUAL DIFF 22.1 TH/MM3 (1.8-7.7); POLYS (SEG NEUTROPHILS) 79 % (16-70); WBC DIFF SAMPLE 100
[2017-01-15 08:06] LABS: PLATELET ESTIMATE SMEAR HIGH (NORMAL); PLATELET MORPHOLOGY NORMAL (NORMAL); SCAN/DIFF FINAL DIFF MANUAL
[2017-01-15] MEDS: LACTOBACILLUS ACIDOPHILUS TAB PO SCH ×2 (08:13→21:31)
[2017-01-15] MEDS: DIVALPROEX SODIUM E.R. 500 MG TAB PO SCH ×3 (08:13→17:38)
[2017-01-15] MEDS: NICOTINE 21 MG/24 HR PATCH TD SCH (08:14)
[2017-01-15] MEDS: FAMOTIDINE 20 MG TAB PO SCH ×2 (08:14→21:31)
[2017-01-15] MEDS: LORATADINE 10 MG TAB PO SCH (08:14)
[2017-01-15] MEDS: GABAPENTIN 300 MG CAP PO SCH ×3 (08:14→17:38)
[2017-01-15] MEDS: VENLAFAXINE HCL XR 75 MG CAP PO SCH (08:14)
[2017-01-15] MEDS: EZETIMIBE 10 MG TAB PO SCH (08:14)
[2017-01-15] MEDS: METOPROLOL TARTRATE 25 MG TAB PO SCH ×2 (08:14→21:31)
[2017-01-15] MEDS: REMOVE OLD PATCH TD SCH (09:00)
[2017-01-15] MEDS: SODIUM CHLORIDE 0.9% FLUSH 5 ML FLUSH FLUSH SCH ×2 (09:00→21:32)
[2017-01-15] MEDS ORDERED: fentaNYL CITRATE 250 MCG/5 ML AMP IV ONE (09:30)
[2017-01-15] MEDS ORDERED: MIDAZOLAM HCL 5 MG/5 ML VIAL IV ONE (09:30)
--- NOTE | 2017-01-15 10:23 | HHI.PR ---
Subjective Remarks Patient seen and examined today. Follow-up on sepsis, abdominal abscess. Patient states that she is doing much better. She has ate her breakfast and has had 3 bowel movements. She states that she feels good enough to go home. Objective Vitals Vital Signs Date Time Temp Pulse Resp B/P Pulse Ox O2 Delivery O2 Flow Rate FiO2 01/15/17 08:30 95 Nasal Cannula 6.00 01/15/17 08:00 120 01/15/17 08:00 97.5 120 22 134/62 96 01/15/17 05:02 118 20 157/79 91 01/15/17 04:02 97.6 118 17 140/59 96 01/15/17 03:02 86 15 145/57 95 01/15/17 02:27 15 01/15/17 02:02 86 15 147/53 96 01/15/17 00:02 97.7 120 16 151/57 94 01/14/17 23:02 88 15 134/75 95 01/14/17 21:02 122 12 120/59 98 01/14/17 20:04 96 Simple Mask 6.00 01/14/17 20:02 98.5 118 14 121/51 97 01/14/17 20:00 120 01/14/17 19:02 122 15 121/48 97 01/14/17 19:00 97 Non-Rebreather 01/14/17 19:00 122 13 121/48 96 01/14/17 18:00 88 01/14/17 17:09 92 23 141/61 95 01/14/17 17:07 92 22 137/49 96 01/14/17 17:05 92 22 138/46 97 01/14/17 17:03 92 20 130/47 97 01/14/17 17:01 90 20 137/52 98 01/14/17 17:00 92 19 98 01/14/17 17:00 92 01/14/17 16:29 86 21 128/53 96 01/14/17 16:27 84 19 135/47 95 01/14/17 16:25 84 18 138/57 97 01/14/17 16:23 86 19 128/47 94 01/14/17 16:21 114 22 131/48 90 01/14/17 16:19 120 22 136/72 92 01/14/17 16:00 97.6 122 21 93 01/14/17 16:00 122 01/14/17 15:26 118 17 124/53 95 01/14/17 15:24 118 15 124/60 96 01/14/17 15:22 118 16 127/54 97 01/14/17 15:20 120 14 128/49 97 01/14/17 15:18 120 13 119/50 97 01/14/17 15:16 120 15 120/54 97 01/14/17 15:14 122 15 125/49 97 01/14/17 15:13 122 16 110/50 97 01/14/17 15:12 122 13 127/57 97 01/14/17 15:11 124 15 122/47 97 01/14/17 15:00 126 01/14/17 15:00 126 19 139/52 96 01/14/17 14:00 126 01/14/17 14:00 126 18 136/53 95 01/14/17 13:00 124 12 126/53 97 01/14/17 13:00 124 01/14/17 12:03 124 13 122/49 95 01/14/17 12:00 124 01/14/17 12:00 98.2 124 12 117/47 95 01/14/17 11:00 130/44 I/O 01/14/17 01/14/17 01/14/17 01/15/17 01/15/17 01/15/17 07:00 15:00 23:00 07:00 15:00 23:00 Intake Total 1034 ml 2285 ml 675 ml Output Total 525 ml 1625 ml 470 ml Balance 509 ml 660 ml 205 ml Intake Oral 240 ml 360 ml 120 ml IV Total 794 ml 1925 ml 555 ml Output Urine Total 525 ml 1625 ml 450 ml Drainage Total 20 ml # Bowel Movements 1 0 0 Result Diagram: 01/15/17 0425 01/15/17 0425 Objective Remarks GENERAL: Well-developed, well-nourished, in no acute distress. alert and orientated HEENT: Head is normocephalic without any lesions or masses noted. Facial features are symmetric. Eyes: Extraocular muscles are intact. Conjunctivae were clear. NECK: Supple without any masses. Trachea midline no deviation. No JVD, CARDIAC: Regular rhythm, regular rate. S1/S2 are heard. No murmurs gallops or rubs. LUNGS: Clear to auscultation bilaterally. No wheeze, rhonchi or rales. No use of accessory muscles on inspiration or expiration. ABDOMEN: Soft, nontender. Nondistended. Bowel sounds heard in all 4 quadrants. No organomegaly or masses. Negative rebound, negative guarding. Drain is noted with serosanguineous fluid EXTREMITIES: 2+ pitting edema noted bilateral lower extremities. Pulses are equal bilaterally. No cyanosis or clubbing NEUROLOGY: Mood and affect appear appropriate. Cranial nerves II through XII grossly intact. Moving all extremities, speech is clear Urinary Catheter: Yes Assessment to: Remove Dickson insert reason: Measure Accurate Output Vascular Central Line Catheter: Yes Assessment to: Continue Line: Central Venous Catheter Side: Right Location: Internal, Jugular A/P Assessment and Plan Sepsis secondary to retroperitoneal/perinephritic abscess: Patient continues to meet criteria with leukocytosis, sinus tachycardia, abdominal abscess with Escherichia coli: Status post pituitary only place and abscess drain with improvement of fluid collection. Infectious disease is following the patient and will continue await further recommendations, continue Azactam at this time. Repeat CT the abdomen which did indicate pigtail catheter in place with only minimal increased density seen in the posterior right pararenal space. Appears cc and large fluid collection is largely resolved. Sustained tachycardia: No significant improvement despite Lopressor 12.5 mg daily, increase to twice daily. Hyperthyroidism: Check TSH, replacement therapy has been resumed Hyperlipidemia: Home medications were continued to include Zetia and atorvastatin Chronic obstructive pulmonary disease, Tobacco use disorder: Patient started with nicotine patch. Patient counseled on cessation. Duo nebs as needed. Start incentive spirometry DVT Prevention: Lovenox Written by Billy Barboza PA-C, acting as scribe for Dr. Montes on 01/15/17 at 1035. The documentation accurately reflects the work and decisions performed face-to- face by Dr. Montes on 01/15/17 at 1035. Billy Barboza Jan 15, 2017 10:23
[2017-01-15] MEDS: SODIUM CHLORIDE 0.9% 10 ML VIAL IRRIGATION SCH (16:00)
[2017-01-15] MEDS ORDERED: METOPROLOL TARTRATE 25 MG TAB PO ONE (17:30)
[2017-01-15] MEDS ORDERED: METOPROLOL TARTRATE 5 MG/5 ML VIAL IV PUSH PRN (18:00)
[2017-01-15] MEDS ORDERED: METOPROLOL TARTRATE 25 MG TAB PO SCH (21:00)
[2017-01-15] MEDS: ENOXAPARIN SODIUM 40 MG/0.4 ML SYRINGE SQ SCH (21:31)
[2017-01-15] MEDS: ATORVASTATIN 40 MG TAB PO SCH (21:31)
[2017-01-16] VITALS (31 sets, daily range): BP systolic 76–149; BP diastolic 40–61; PULSE 70–118; RESP 11–28; TEMP 95.1–98.8; O2SAT 91–100
[2017-01-16] MEDS: AZTREONAM INJ 2,000 MG in SODIUM CHLORIDE 0.9% INJ 100 ML IV SCH ×3 (01:46→18:34)
[2017-01-16] MEDS: CHLORHEXIDINE GLUCONATE 2 % 1 PACK (2 CLOTHS)(taper/protocol) TOP SCH (04:00)
[2017-01-16 04:46] LABS: AUTOMATED NEUTROPHIL # 13.8 TH/MM3 (1.8-7.7); BASOPHIL % 0.1 % (0.0-2.0); EOSINOPHIL # 0.3 TH/MM3 (0-0.4); EOSINOPHIL % 1.5 % (0.0-4.0); HEMATOCRIT 24.6 % (35.0-46.0); LYMPH % 11.8 % (9.0-44.0); LYMPHOCYTE # 2.2 TH/MM3 (1.0-4.8); MEAN CELL VOLUME 82.1 FL (80.0-100.0); MEAN CORPUSCULAR HEMOGLOBIN 26.2 PG (27.0-34.0); MONO % 12.9 % (0.0-8.0); NEUT % 73.7 % (16.0-70.0); PLATELET COUNT 417 TH/MM3 (150-450); RED CELL DISTRIBUTION WIDTH 15.9 % (11.6-17.2); WHITE BLOOD COUNT 18.7 TH/MM3 (4.0-11.0)
[2017-01-16 05:13] LABS: POTASSIUM 3.9 MEQ/L (3.5-5.1)
[2017-01-16 05:17] LABS: BICARBONATE 20.2 MEQ/L (21.0-32.0); MAGNESIUM 2.1 MG/DL (1.5-2.5)
[2017-01-16 05:28] LABS: HEMO FLAGS AUTO DIFF
[2017-01-16] MEDS: METOPROLOL TARTRATE 25 MG TAB PO SCH ×3 (06:29→21:47)
[2017-01-16] MEDS: LEVOTHYROXINE SODIUM 112 MCG TAB PO SCH (06:29)
[2017-01-16 06:58] LABS: EOSINOPHILS 3 % (0-4); MYELOCYTES 1 % (0-0); NEUTROPHIL # MANUAL DIFF 11.4 TH/MM3 (1.8-7.7); POLYS (SEG NEUTROPHILS) 60 % (16-70); SCAN/DIFF FINAL DIFF MANUAL; WBC DIFF SAMPLE 100
[2017-01-16] MEDS ORDERED: FUROSEMIDE 20 MG/2 ML VIAL IV PUSH ONE (08:30)
--- NOTE | 2017-01-16 08:31 | HHI.PR ---
Subjective Remarks Patient seen and examined today with Dr. Montes. Patient is improving. Heart rate is controlled at this time. No output in drain. Patient is asking when she can go home. Discussed with family at bedside. Answered all their questions. Objective Vitals Vital Signs Date Time Temp Pulse Resp B/P Pulse Ox O2 Delivery O2 Flow Rate FiO2 01/16/17 06:03 84 17 125/52 93 01/16/17 05:03 82 12 131/54 96 01/16/17 05:03 82 12 131/54 96 01/16/17 04:03 76 11 105/40 99 01/16/17 04:00 97.5 01/16/17 02:03 80 12 114/52 96 01/16/17 01:03 80 11 113/41 97 01/16/17 01:03 80 11 113/41 97 01/16/17 01:00 80 11 97 01/16/17 00:03 116 13 118/45 95 01/16/17 00:03 116 13 118/45 95 01/16/17 00:00 118 12 96 01/16/17 00:00 118 12 96 01/16/17 00:00 98.3 01/15/17 23:03 116 13 143/56 96 01/15/17 22:03 120 13 135/57 96 01/15/17 21:03 120 14 140/59 95 01/15/17 20:03 122 13 139/56 100 01/15/17 20:00 122 13 100 01/15/17 20:00 98.4 01/15/17 20:00 121 01/15/17 20:00 95 Nasal Cannula 4.00 01/15/17 19:52 96 Simple Mask 6.00 01/15/17 19:03 124 13 156/56 100 01/15/17 19:03 124 13 156/56 100 01/15/17 19:00 124 13 99 01/15/17 19:00 124 13 99 01/15/17 16:15 98.2 126 22 96 01/15/17 16:03 122 15 154/59 96 01/15/17 16:00 120 13 97 01/15/17 15:45 122 13 97 01/15/17 15:30 122 14 97 01/15/17 15:15 124 17 95 01/15/17 15:03 122 18 140/57 93 01/15/17 15:00 122 16 93 01/15/17 14:45 126 22 90 01/15/17 14:30 128 26 92 01/15/17 14:15 120 19 94 01/15/17 14:03 90 18 142/60 96 01/15/17 14:00 88 14 01/15/17 13:45 86 13 01/15/17 13:30 84 14 100 01/15/17 13:15 86 14 100 01/15/17 13:10 83 01/15/17 13:03 86 14 140/48 100 01/15/17 13:03 98.7 86 14 140/48 100 01/15/17 13:00 90 17 100 01/15/17 13:00 90 17 100 01/15/17 12:56 111 01/15/17 12:55 97 Simple Mask 7.00 01/15/17 12:03 76 13 133/44 97 01/15/17 12:00 74 01/15/17 12:00 74 11 97 01/15/17 12:00 98.8 74 11 97 01/15/17 11:03 122 01/15/17 10:03 120 01/15/17 09:03 120 01/15/17 08:30 95 Nasal Cannula 6.00 I/O 01/15/17 01/15/17 01/15/17 01/16/17 01/16/17 01/16/17 07:00 15:00 23:00 07:00 15:00 23:00 Intake Total 675 ml 710 ml 595 ml 460 ml Output Total 470 ml 800 ml 500 ml 450 ml Balance 205 ml -90 ml 95 ml 10 ml Intake Oral 120 ml 360 ml IV Total 555 ml 710 ml 595 ml 100 ml Output Urine Total 450 ml 800 ml 500 ml 450 ml Drainage Total 20 ml 0 ml 0 ml # Bowel Movements 0 0 Result Diagram: 01/16/1743101/16/17431 Objective Remarks GENERAL: Well-developed, well-nourished, in no acute distress. alert and orientated HEENT: Head is normocephalic without any lesions or masses noted. Facial features are symmetric. Eyes: Extraocular muscles are intact. Conjunctivae were clear. NECK: Supple without any masses. Trachea midline no deviation. No JVD, CARDIAC: Regular rhythm, regular rate. S1/S2 are heard. No murmurs gallops or rubs. LUNGS: Clear to auscultation bilaterally. No wheeze, rhonchi or rales. No use of accessory muscles on inspiration or expiration. ABDOMEN: Soft, nontender. Nondistended. Bowel sounds heard in all 4 quadrants. No organomegaly or masses. Negative rebound, negative guarding. Drain is noted with serosanguineous fluid EXTREMITIES: 2+ pitting edema noted bilateral lower extremities. Pulses are equal bilaterally. No cyanosis or clubbing NEUROLOGY: Mood and affect appear appropriate. Cranial nerves II through XII grossly intact. Moving all extremities, speech is clear Urinary Catheter: No Vascular Central Line Catheter: Yes Assessment to: Continue Line: Central Venous Catheter Side: Right Location: Internal, Jugular A/P Assessment and Plan Sepsis secondary to retroperitoneal/perinephritic abscess: Improved.: Status post placement of abscess drain with improvement of fluid collection. Infectious disease is following the patient and will continue await further recommendations, continue Azactam at this time. Repeat CT the abdomen which did indicate pigtail catheter in place with only minimal increased density seen in the posterior right pararenal space. Previously seen large fluid collection is largely resolved. Lower extremity edema: Fluid retention secondary to fluid resuscitation and aseptic patient. Will apply SADIA hose. Will give Lasix 20 mg IV 1 today. Will leave Dickson in place for diuresis. If patient responds well and plan Dickson removal later this afternoon or tomorrow morning. Sustained tachycardia: Resolved No significant improvement despite Lopressor 12.5 mg every 8 hours Hyperthyroidism: TSH 3.24, replacement therapy has been resumed Hyperlipidemia: Home medications were continued to include Zetia and atorvastatin Chronic obstructive pulmonary disease, Tobacco use disorder: Patient started with nicotine patch. Patient counseled on cessation. Duo nebs as needed. Start incentive spirometry Physical deconditioning: Patient may get out of bed with assistance, physical therapy evaluation has been requested DVT Prevention: Lovenox Patient may be transferred to medical surgical floor at this time. No longer requiring ICU management Written by Billy Barboza PA-C, acting as scribe for Dr. Montes on 01/16/17 at 1245. The documentation accurately reflects the work and decisions performed face-to- face by Dr. Montes on 01/16/17 at 1245. Billy Barboza Jan 16, 2017 08:31
[2017-01-16] MEDS: REMOVE OLD PATCH TD SCH (09:00)
[2017-01-16] MEDS: EZETIMIBE 10 MG TAB PO SCH (09:33)
[2017-01-16] MEDS: FAMOTIDINE 20 MG TAB PO SCH ×2 (09:33→21:41)
[2017-01-16] MEDS: GABAPENTIN 300 MG CAP PO SCH ×3 (09:33→18:34)
[2017-01-16] MEDS: DIVALPROEX SODIUM E.R. 500 MG TAB PO SCH ×3 (09:33→18:34)
[2017-01-16] MEDS: LORATADINE 10 MG TAB PO SCH (09:33)
[2017-01-16] MEDS: NICOTINE 21 MG/24 HR PATCH TD SCH (09:33)
[2017-01-16] MEDS: LACTOBACILLUS ACIDOPHILUS TAB PO SCH ×2 (09:33→21:41)
[2017-01-16] MEDS: VENLAFAXINE HCL XR 75 MG CAP PO SCH (09:33)
[2017-01-16] MEDS: SODIUM CHLORIDE 0.9% FLUSH 5 ML FLUSH FLUSH SCH ×2 (13:20→21:42)
[2017-01-16] MEDS: SODIUM CHLORIDE 0.9% 10 ML VIAL IRRIGATION SCH (16:00)
[2017-01-16] MEDS: RESP: ALBUTEROL 2.5 MG/IPRATROPIUM 0.5 MG NEB (PRN) NEB (19:58)
[2017-01-16] MEDS: ATORVASTATIN 40 MG TAB PO SCH (21:41)
[2017-01-16] MEDS: ENOXAPARIN SODIUM 40 MG/0.4 ML SYRINGE SQ SCH (21:41)
[2017-01-17] VITALS (9 sets, daily range): BP systolic 99–136; BP diastolic 49–93; PULSE 74–86; RESP 18–21; TEMP 96–97.7; O2SAT 92–98
[2017-01-17] MEDS: AZTREONAM INJ 2,000 MG in SODIUM CHLORIDE 0.9% INJ 100 ML IV SCH ×3 (01:44→17:29)
[2017-01-17] MEDS: CHLORHEXIDINE GLUCONATE 2 % 1 PACK (2 CLOTHS)(taper/protocol) TOP SCH (04:00)
[2017-01-17] MEDS: METOPROLOL TARTRATE 25 MG TAB PO SCH ×3 (05:54→22:38)
[2017-01-17] MEDS: LEVOTHYROXINE SODIUM 112 MCG TAB PO SCH (06:07)
[2017-01-17 06:48] LABS: AUTOMATED NEUTROPHIL # 11.9 TH/MM3 (1.8-7.7); BASOPHIL % 0.2 % (0.0-2.0); EOSINOPHIL # 0.3 TH/MM3 (0-0.4); HEMATOCRIT 25.5 % (35.0-46.0); HEMO FLAGS AUTO DIFF; LYMPH % 12.9 % (9.0-44.0); LYMPHOCYTE # 2.1 TH/MM3 (1.0-4.8); MEAN CELL VOLUME 82.2 FL (80.0-100.0); MEAN CORPUSCULAR HEMOGLOBIN 26.7 PG (27.0-34.0); MEAN CORPUSCULAR HGB CONC 32.5 % (32.0-36.0); MONO % 10.5 % (0.0-8.0); NEUT % 74.4 % (16.0-70.0); PLATELET COUNT 397 TH/MM3 (150-450); RED CELL DISTRIBUTION WIDTH 16.1 % (11.6-17.2)
[2017-01-17 06:56] LABS: POTASSIUM 4.1 MEQ/L (3.5-5.1)
[2017-01-17 07:01] LABS: MAGNESIUM 2.1 MG/DL (1.5-2.5)
[2017-01-17 07:19] LABS: SCAN/DIFF AUTO DIFF CONFIRMED
[2017-01-17] MEDS: RESP: ALBUTEROL 2.5 MG/IPRATROPIUM 0.5 MG NEB (PRN) NEB (07:32)
[2017-01-17] MEDS: REMOVE OLD PATCH TD SCH (09:00)
[2017-01-17] MEDS: SODIUM CHLORIDE 0.9% FLUSH 5 ML FLUSH FLUSH SCH ×2 (09:06→22:39)
[2017-01-17] MEDS: NICOTINE 21 MG/24 HR PATCH TD SCH (09:06)
[2017-01-17] MEDS: EZETIMIBE 10 MG TAB PO SCH (09:07)
[2017-01-17] MEDS: LORATADINE 10 MG TAB PO SCH (09:07)
[2017-01-17] MEDS: LACTOBACILLUS ACIDOPHILUS TAB PO SCH ×2 (09:07→22:39)
[2017-01-17] MEDS: VENLAFAXINE HCL XR 75 MG CAP PO SCH (09:07)
[2017-01-17] MEDS: FAMOTIDINE 20 MG TAB PO SCH ×2 (09:07→22:38)
[2017-01-17] MEDS: GABAPENTIN 300 MG CAP PO SCH ×3 (09:07→17:29)
[2017-01-17] MEDS: DIVALPROEX SODIUM E.R. 500 MG TAB PO SCH ×3 (09:07→17:29)
[2017-01-17] MEDS: SODIUM CHLORIDE 0.9% 10 ML VIAL IRRIGATION SCH (12:55)
--- NOTE | 2017-01-17 20:14 | HHI.PR ---
Subjective Remarks Pleasant elderly female laying in bed doing well, no fever or chills WBC dropped from 27-16, all continue antibiotic Azactam, hemoglobin 8.3, will she is afebrile, will DC Yessi Objective Vitals Vital Signs Date Time Temp Pulse Resp B/P Pulse Ox O2 Delivery O2 Flow Rate FiO2 01/17/17 19:58 96 Nasal Cannula 2.00 01/17/17 16:00 85 19 126/57 96 01/17/17 12:00 97.7 74 21 99/49 95 01/17/17 08:00 97.6 86 18 127/93 93 01/17/17 07:34 92 Nasal Cannula 2.00 01/17/17 04:00 96.5 79 20 106/57 98 01/17/17 00:00 96.4 83 18 111/53 98 I/O 01/16/17 01/16/17 01/16/17 01/17/17 01/17/17 01/17/17 07:00 15:00 23:00 07:00 15:00 23:00 Intake Total 460 ml 700 ml 120 ml 120 ml 420 ml Output Total 450 ml 1000 ml 650 ml 600 ml 550 ml Balance 10 ml -300 ml -530 ml -480 ml -130 ml Intake Oral 360 ml 600 ml 120 ml 120 ml 420 ml IV Total 100 ml 100 ml Output Urine Total 450 ml 1000 ml 650 ml 600 ml 550 ml Drainage Total 0 ml # Bowel Movements 0 0 0 1 Result Diagram: 01/17/1760501/17/1706 Objective Remarks GENERAL: This is a well-nourished, well-developed patient, in no apparent distress. SKIN: No rashes, warm and dry HEAD: Atraumatic. Normocephalic. EYES: Pupils equal round and reactive. Extraocular motions intact. No scleral icterus. ENT: Nose without bleeding, or drainage, Airway patent. NECK: Trachea midline. Supple CARDIOVASCULAR: Regular rate and rhythm without murmurs, gallops, or rubs. RESPIRATORY: Fair air entry bilaterally. No wheezes, rales, or rhonchi. GASTROINTESTINAL: Abdomen soft, non-tender, nondistended. Positive bowel sounds MUSCULOSKELETAL: Extremities without clubbing, cyanosis, or edema. Pedal pulses appreciated NEUROLOGICAL: Awake and alert. Moves all extremity. Normal speech.no focal neurological deficit Line: Central Venous Catheter Side: Right Location: Internal, Jugular A/P Problem List: (1) Intra-abdominal abscess ICD Code: K65.1 Status: Acute (2) Sepsis ICD Code: A41.9 Status: Acute (3) UTI (urinary tract infection) ICD Code: N39.0 Status: Acute (4) Tachycardia ICD Code: R00.0 Status: Acute Assessment and Plan 01/17/17: Continue Azactam, DC Dickson, continue monitoring I's and O's A/P: Sepsis secondary to retroperitoneal/perinephritic abscess: Improved.: Status post placement of abscess drain with improvement of fluid collection. Infectious disease is following the patient and will continue await further recommendations, continue Azactam at this time. Repeat CT the abdomen which did indicate pigtail catheter in place with only minimal increased density seen in the posterior right pararenal space. Previously seen large fluid collection is largely resolved. Lower extremity edema: Fluid retention secondary to fluid resuscitation and aseptic patient. apply SADIA hose. Lasix 20 mg IV 1 given. Sustained tachycardia: Resolved No significant improvement despite Lopressor 12.5 mg every 8 hours Hyperthyroidism: TSH 3.24, replacement therapy has been resumed Hyperlipidemia: Home medications were continued to include Zetia and atorvastatin Chronic obstructive pulmonary disease, Tobacco use disorder: Patient started with nicotine patch. Patient counseled on cessation. Duo nebs as needed. Start incentive spirometry Physical deconditioning: Patient may get out of bed with assistance, physical therapy evaluation has been requested DVT Prevention: Lovenox Problem Qualifiers (1) Sepsis: Qualified Code: A41.9 - Sepsis, due to unspecified organism Misa Cacerse MD Jan 17, 2017 20:14
[2017-01-17] MEDS: ATORVASTATIN 40 MG TAB PO SCH (22:39)
[2017-01-17] MEDS: ENOXAPARIN SODIUM 40 MG/0.4 ML SYRINGE SQ SCH (22:39)
[2017-01-18] VITALS: BP 134/57; PULSE 84; RESP 20; TEMP 96; O2SAT 97
[2017-01-18] MEDS: AZTREONAM INJ 2,000 MG in SODIUM CHLORIDE 0.9% INJ 100 ML IV SCH ×2 (02:42→09:40)
[2017-01-18 04:00] VITALS: BP 142/63; PULSE 80; RESP 16; TEMP 96; O2SAT 95
[2017-01-18] MEDS: CHLORHEXIDINE GLUCONATE 2 % 1 PACK (2 CLOTHS)(taper/protocol) TOP SCH (04:36)
[2017-01-18] MEDS: METOPROLOL TARTRATE 25 MG TAB PO SCH ×2 (06:53→14:58)
[2017-01-18] MEDS: LEVOTHYROXINE SODIUM 112 MCG TAB PO SCH (06:53)
[2017-01-18 08:00] VITALS: BP 180/61; PULSE 87; RESP 20; TEMP 96.1; O2SAT 92
[2017-01-18] MEDS: REMOVE OLD PATCH TD SCH (09:00)
[2017-01-18] MEDS: LACTOBACILLUS ACIDOPHILUS TAB PO SCH (09:40)
[2017-01-18] MEDS: DIVALPROEX SODIUM E.R. 500 MG TAB PO SCH ×2 (09:40→14:58)
[2017-01-18] MEDS: VENLAFAXINE HCL XR 75 MG CAP PO SCH (09:40)
[2017-01-18] MEDS: EZETIMIBE 10 MG TAB PO SCH (09:40)
[2017-01-18] MEDS: GABAPENTIN 300 MG CAP PO SCH ×2 (09:40→14:58)
[2017-01-18] MEDS: FAMOTIDINE 20 MG TAB PO SCH (09:40)
[2017-01-18] MEDS: NICOTINE 21 MG/24 HR PATCH TD SCH (09:40)
[2017-01-18] MEDS: LORATADINE 10 MG TAB PO SCH (09:40)
[2017-01-18] MEDS: SODIUM CHLORIDE 0.9% FLUSH 5 ML FLUSH FLUSH SCH (09:41)
[2017-01-18 09:45] VITALS: O2SAT 95
[2017-01-18 12:00] VITALS: BP 173/77; PULSE 88; RESP 19; TEMP 96; O2SAT 92
--- NOTE | 2017-01-18 13:45 | HHI.IDPN ---
Subjective Subjective Remarks Patient is a 71-year-old female, initially admitted complaining of pain on the right side of the abdomen. She had evidence of significant leukocytosis. CT of the abdomen and pelvis showed a fluid collection in the right retroperitoneum including the perirenal and pararenal space. She had Escherichia coli UTI. The fluid collection was percutaneously drained, and cultured out Escherichia coli as well. Patient's leukocytosis has improved although it still elevated at 16,000. She is afebrile. She has some mild pain on the right flank. Follow-up CT did show resolution of the fluid collection, and the percutaneous drain was removed yesterday. No fever No diarrhea No rash Has some moist cough but no sputum Last chest x-ray January 11 with some basilar atelectasis All her blood cultures are negative. Antibiotics Azactam Lines Right IJ central line Past Medical History 1. COPD 2. Tobacco abuse 3. Hypothyroidism 4. Hypertension 5. Anxiety disorder 6. Bipolar disorder 7. Dyslipidemia 8. History of frequent urinary infections. 9. History of uterine cancer 40 years ago. 10. History of back surgery. 11. History of L4-L5 sympathectomy. 12. Gastroesophageal reflux disease 13. Peripheral neuropathy 14. Left knee endoscopy Allergies: Coded Allergies: Morphine (Verified Allergy, Intermediate, HALLUCINATIONS, 01/09/17) Penicillin (Verified Allergy, Intermediate, RASH, 01/09/17) Prednisone (Verified Allergy, Intermediate, FACE SWELLS, 01/09/17) Valium (Verified Allergy, Mild, UNKNOWN, 01/09/17) Codeine (Verified Adverse Reaction, Intermediate, CONSTIPATION, 01/09/17) Uncoded Allergies: STEROIDS (Allergy, Intermediate, FACE SWELLS, 03/30/09) Objective . Vital Signs Date Time Temp Pulse Resp B/P Pulse Ox O2 Delivery O2 Flow Rate FiO2 01/18/17 12:00 96.0 88 19 173/77 92 01/18/17 10:50 Nasal Cannula 2.00 01/18/17 09:45 95 Nasal Cannula 2.00 01/18/17 08:00 96.1 87 20 180/61 92 01/18/17 04:35 96 Nasal Cannula 2.00 01/18/17 04:00 96.0 80 16 142/63 95 01/18/17 00:00 96.0 84 20 134/57 97 01/17/17 22:35 82 01/17/17 20:00 96.0 82 20 136/60 95 01/17/17 19:58 96 Nasal Cannula 2.00 01/17/17 16:00 85 19 126/57 96 01/17/17 01/17/17 01/18/17 15:00 23:00 07:00 Intake Total 480 ml 60 ml Output Total 1050 ml 250 ml Balance -570 ml -190 ml Intake Oral 480 ml 60 ml Output Urine Total 1050 ml 250 ml # Bowel Movements 1 0 . Laboratory Tests Test 01/17/17 06:06 White Blood Count 16.0 TH/MM3 Red Blood Count 3.10 MIL/MM3 Hemoglobin 8.3 GM/DL Hematocrit 25.5 % Mean Corpuscular Volume 82.2 FL Mean Corpuscular Hemoglobin 26.7 PG Mean Corpuscular Hemoglobin 32.5 % Concent Red Cell Distribution Width 16.1 % Platelet Count 397 TH/MM3 Mean Platelet Volume 7.7 FL Neutrophils (%) (Auto) 74.4 % Lymphocytes (%) (Auto) 12.9 % Monocytes (%) (Auto) 10.5 % Eosinophils (%) (Auto) 2.0 % Basophils (%) (Auto) 0.2 % Neutrophils # (Auto) 11.9 TH/MM3 Lymphocytes # (Auto) 2.1 TH/MM3 Monocytes # (Auto) 1.7 TH/MM3 Eosinophils # (Auto) 0.3 TH/MM3 Basophils # (Auto) 0.0 TH/MM3 CBC Comment AUTO DIFF Differential Comment AUTO DIFF CONFIRMED Laboratory Tests Test 01/17/17 01/18/17 06:06 05:16 Sodium Level 141 MEQ/L Potassium Level 4.1 MEQ/L Chloride Level 108 MEQ/L Carbon Dioxide Level 24.0 MEQ/L Anion Gap 9 MEQ/L Blood Urea Nitrogen 15 MG/DL Creatinine 0.59 MG/DL 0.54 MG/DL Estimat Glomerular Filtration 101 ML/MIN 112 ML/MIN Rate Random Glucose 76 MG/DL Calcium Level 7.9 MG/DL Magnesium Level 2.1 MG/DL Imaging Last Impressions Abdomen CT 01/14/17 0000 Signed Impressions: Service Date/Time: Saturday, January 14, 2017 16:45 - CONCLUSION: Pigtail catheter in place with only minimal increased density seen in the posterior right perirenal space. The previously seen large fluid collection is largely resolved. Som Lewis MD Abdomen X-Ray 01/12/17 0600 Signed Impressions: Service Date/Time: Thursday, January 12, 2017 06:09 - CONCLUSION: No disproportionately dilated loops of small large bowel. Inderjit Lew MD Retroperitoneal Abscess Drainage 01/11/17 0000 Signed Impressions: Service Date/Time: Wednesday, January 11, 2017 09:25 - CONCLUSION: Uncomplicated CT guided drainage. Jhonatan Cardenas MD Chest X-Ray 01/11/17 0000 Signed Impressions: Service Date/Time: Wednesday, January 11, 2017 18:11 - CONCLUSION: Right IJ central venous line has its tip at the atriocaval junction. No pneumothorax or other acute complication demonstrated. Mild bibasilar atelectasis. Som Alvarez MD Urogram 01/09/17 0000 Signed Impressions: Service Date/Time: Monday, January 09, 2017 13:22 - CONCLUSION: 1. Slight degree of right hydroureter, etiology uncertain. 2. No leakage of the excreted contrast. Som Alvarez MD CT Angiography 01/09/17 Signed Impressions: Service Date/Time: Monday, January 09, 2017 10:48 - CONCLUSION: No pulmonary embolus. Trace failure suspected. Som Alvarez MD Abdomen/Pelvis CT 01/09/17 Signed Impressions: Service Date/Time: Monday, January 09, 2017 10:48 - CONCLUSION: 1. There is a retroperitoneal low collection involving the perirenal and posterior pararenal spaces on the right. It measures 6.2 x 6.0 x 9.6 cm and anteriorly displaces the right kidney. Imaging appearance is suspicious for an abscess. There is associated small volume of perihepatic free fluid in the peritoneal space. The right kidney otherwise demonstrates no abnormality. 2. Nonacute findings include severe atherosclerotic disease and cholelithiasis. Som Pettit MD Physical Exam GENERAL: Awake and alert, in no acute distress. SKIN: Cool and dry, no generalized rash. HEENT: [place] conjunctivae, no petechia or hemorrhage. No scleral icterus. Moist oral mucosa. Oropharynx has no visible lesions. NECK: Supple without adenopathy or swelling. No tenderness. LUNGS: Clear to auscultation, no rales or wheezing or rhonchi. Decreased at the bases. HEART: Regular rate and rhythm without murmurs, rubs or gallops. ABDOMEN: Soft abdomen, bowel sounds are present and normoactive. There is no tenderness or rebound or guarding. Has a dry intact dressing in the right flank where she had her percutaneous drain previously. EXTREMITIES: No clubbing or cyanosis, trace edema. NEUROLOGIC: No gross focal findings. PSYCH: The patient is calm and cooperative. LINE: [facility] TLC with some dried blood Assessment & Plan Remarks IMPRESSION 1. Retroperitoneal abscess/perinephric abscess. E. coli. - had percutaneous drain in place, which was removed - last CT showed resolution of fluid collection 2. Urinary tract infection . E.coli. 3. Severe Sepsis indicated by elevated heart rate, leukocytosis, source of infection likely urine and also retroperitoneal abscess. Also hypotension. - resolved 4. Acute kidney disease - - resolved 5. Penicillin allergy. 6. Leukocytosis. WBC still elevated. - persistent but improving RECOMMENDATIONS Stop Azactam Start Levaquin, if no GI problem with first dose of Levaquin, patient is okay for discharge from the ID standpoint Recommend 14 more days of oral Levaquin when she gets discharge Repeat CT in 3-4 weeks for follow-up or for retroperitoneal abscess Remove central line D/W April Barboza PA-C Explained plan to patient May Haywood MD Jan 18, 2017 13:45
[2017-01-18] MEDS ORDERED: LEVOFLOXACIN 750 MG TAB PO SCH (14:00)
[2017-01-18] MEDS: SODIUM CHLORIDE 0.9% 10 ML VIAL IRRIGATION SCH (14:59)
[2017-01-18] MEDS ORDERED: LEVA750T PO (15:31)
[2017-01-18] MEDS ORDERED: METO25TA3 PO (15:31)
--- NOTE | 2017-01-18 15:35 | HHI.PR ---
Subjective Remarks pATIENT STATED SHE IS DOING WELL, NO FEVER OR CHILLS, no nausea or vomiting ID change her Azactam to Levaquin by mouth, patient exceptED to [facility] Objective Vitals Vital Signs Date Time Temp Pulse Resp B/P Pulse Ox O2 Delivery O2 Flow Rate FiO2 01/18/17 12:00 96.0 88 19 173/77 92 01/18/17 10:50 Nasal Cannula 2.00 01/18/17 09:45 95 Nasal Cannula 2.00 01/18/17 08:00 96.1 87 20 180/61 92 01/18/17 04:35 96 Nasal Cannula 2.00 01/18/17 04:00 96.0 80 16 142/63 95 01/18/17 00:00 96.0 84 20 134/57 97 01/17/17 22:35 82 01/17/17 20:00 96.0 82 20 136/60 95 01/17/17 19:58 96 Nasal Cannula 2.00 01/17/17 16:00 85 19 126/57 96 I/O 01/17/17 01/17/17 01/17/17 01/18/17 01/18/17 01/18/17 07:00 15:00 23:00 07:00 15:00 23:00 Intake Total 120 ml 480 ml 60 ml Output Total 600 ml 1050 ml 250 ml Balance -480 ml -570 ml -190 ml Intake Oral 120 ml 480 ml 60 ml Output Urine Total 600 ml 1050 ml 250 ml # Bowel Movements 0 1 0 Result Diagram: 01/17/17 0606 01/18/17 0516 Objective Remarks GENERAL: This is a well-nourished, well-developed patient, in no apparent distress. SKIN: No rashes, warm and dry HEAD: Atraumatic. Normocephalic. EYES: Pupils equal round and reactive. Extraocular motions intact. No scleral icterus. ENT: Nose without bleeding, or drainage, Airway patent. NECK: Trachea midline. Supple CARDIOVASCULAR: Regular rate and rhythm without murmurs, gallops, or rubs. RESPIRATORY: Fair air entry bilaterally. No wheezes, rales, or rhonchi. GASTROINTESTINAL: Abdomen soft, non-tender, nondistended. Positive bowel sounds MUSCULOSKELETAL: Extremities without clubbing, cyanosis, or edema. Pedal pulses appreciated NEUROLOGICAL: Awake and alert. Moves all extremity. Normal speech.no focal neurological deficit Line: Central Venous Catheter Side: Right Location: Internal, Jugular A/P Problem List: (1) Intra-abdominal abscess ICD Code: K65.1 Status: Acute (2) Sepsis ICD Code: A41.9 Status: Acute (3) UTI (urinary tract infection) ICD Code: N39.0 Status: Acute (4) Tachycardia ICD Code: R00.0 Status: Acute Assessment and Plan A/P: Sepsis secondary to retroperitoneal/perinephritic abscess: Improved.: Status post placement of abscess drain with improvement of fluid collection. Infectious disease is following the patient status post Azactam , Serial CT abdomen, status post pigtail catheter drainer, ID switch to Levaquin for 14 days at discharge Lower extremity edema: Fluid retention secondary to fluid resuscitation and aseptic patient. apply SADIA hose. Lasix 20 mg IV 1 given. Sustained tachycardia: Resolved No significant improvement despite Lopressor 12.5 mg every 8 hours Hyperthyroidism: TSH 3.24, replacement therapy has been resumed Hyperlipidemia: Home medications were continued to include Zetia and atorvastatin Chronic obstructive pulmonary disease, Tobacco use disorder: Patient started with nicotine patch. Patient counseled on cessation. Duo nebs as needed. Start incentive spirometry Physical deconditioning: Patient may get out of bed with assistance, physical therapy evaluation has been requested DVT Prevention: Lovenox Problem Qualifiers (1) Sepsis: Qualified Code: A41.9 - Sepsis, due to unspecified organism Misa Caceres MD Jan 18, 2017 15:35
--- NOTE | 2017-01-18 15:35 | HHI.DS ---
Discharge Summary Admission Date Jan 09, 2017 at 12:18 Discharge Date: Jan 18, 2017 Admitting Diagnosis Sepsis, UTI, Abdominal Abscess. (1) Intra-abdominal abscess ICD Code: K65.1 (2) Sepsis ICD Code: A41.9 (3) UTI (urinary tract infection) ICD Code: N39.0 (4) Tachycardia ICD Code: R00.0 Procedures See below Brief History - From Admission This is a 71-year-old female with a past medical history significant for hypertension, COPD with ongoing tobacco use, dyslipidemia, hypothyroidism, bipolar disorder and anxiety who presents to [facility] ED with complaints of 7-10 day history of progressive right-sided flank and upper back pain as well as shortness of breath. She denies any recorded fever but states she has had chills. She denies any nausea or vomiting but does report decreased appetite and has not been drinking or eating her usual amount. She denies any anterior chest pain. Her pain is somewhat alleviated with her knees flexed in the position. She reports a chronic cough with whitish to yellow sputum production that is unchanged secondary to her COPD. She does not use oxygen at home. She continues smoke a pack per day. She reports injuring herself about 2 weeks ago after lifting a bag of dog food and developed subsequent right sided back pain. She states she has a history of recurrent bladder infections, usually occurring every 3-6 months but states she's not had one in quite some time. Previous L45 sympathectomy and states that she has lost most of her bladder sensation and therefore denies any urgency or dysuria. She has not noticed any blood in her urine. She's had some constipation for the past week since she started taking [id number] Advil to help with her right-sided flank and back pain. She denies any black, tarry or bloody stools. She has no diarrhea. She also reports for the past week that she's had non-postural episodes of dizziness that last just a few seconds before resolving, usually occurring 1-2 times per day. She denies any vision changes, syncope, chest pain or palpitations. In the ED, CT of the abdomen and pelvis reveals a 6.2 x 6.0 x 9.6 cm fluid collection involving the perirenal and posterior pararenal spaces on the right anteriorly displacing the right kidney and suspicious for an abscess. There is also noted to be a small volume of perihepatic free fluid in the peritoneal space. Patient flagged for sepsis in the ED with white count that s extremely elevated at 26.4, initial lactic acid of 2.4 and tachycardia. Follow up lactic acid is 2.0. Her creatinine is 1.20. Her UA is positive for protein, ketones, occult blood, nitrites, bacteria and large leukocytes. CBC/BMP: 01/17/17 0606 01/18/17 0516 Significant Findings Laboratory Tests Test 01/16/17 01/17/17 04:32 06:06 White Blood Count 18.7 TH/MM3 16.0 TH/MM3 (4.0-11.0) (4.0-11.0) Red Blood Count 3.00 MIL/MM3 3.10 MIL/MM3 (4.00-5.30) (4.00-5.30) Hemoglobin 7.9 GM/DL 8.3 GM/DL (11.6-15.3) (11.6-15.3) Hematocrit 24.6 % 25.5 % (35.0-46.0) (35.0-46.0) Mean Corpuscular Hemoglobin 26.2 PG 26.7 PG (27.0-34.0) (27.0-34.0) Neutrophils (%) (Auto) 73.7 % 74.4 % (16.0-70.0) (16.0-70.0) Monocytes (%) (Auto) 12.9 % 10.5 % (0.0-8.0) (0.0-8.0) Neutrophils # (Auto) 13.8 TH/MM3 11.9 TH/MM3 (1.8-7.7) (1.8-7.7) Monocytes # (Auto) 2.4 TH/MM3 1.7 TH/MM3 (0-0.9) (0-0.9) Neutrophils # (Manual) 11.4 TH/MM3 (1.8-7.7) Myelocytes 1 % (0-0) Chloride Level 111 MEQ/L 108 MEQ/L (98-107) (98-107) Carbon Dioxide Level 20.2 MEQ/L (21.0-32.0) Creatinine 0.45 MG/DL (0.50-1.00) Calcium Level 7.9 MG/DL 7.9 MG/DL (8.5-10.1) (8.5-10.1) PE at Discharge GENERAL: This is a well-nourished, well-developed patient, in no apparent distress. SKIN: No rashes, warm and dry HEAD: Atraumatic. Normocephalic. EYES: Pupils equal round and reactive. Extraocular motions intact. No scleral icterus. ENT: Nose without bleeding, or drainage, Airway patent. NECK: Trachea midline. Supple CARDIOVASCULAR: Regular rate and rhythm without murmurs, gallops, or rubs. RESPIRATORY: Fair air entry bilaterally. No wheezes, rales, or rhonchi. GASTROINTESTINAL: Abdomen soft, non-tender, nondistended. Positive bowel sounds MUSCULOSKELETAL: Extremities without clubbing, cyanosis, or edema. Pedal pulses appreciated NEUROLOGICAL: Awake and alert. Moves all extremity. Normal speech.no focal neurological deficit Hospital Course Sepsis secondary to retroperitoneal/perinephritic abscess: Improved.: Status post placement of abscess drain with improvement of fluid collection. Infectious disease is following the patient status post Azactam , Serial CT abdomen, status post pigtail catheter drainer, ID switch to Levaquin for 14 days at discharge Lower extremity edema: Fluid retention secondary to fluid resuscitation and aseptic patient. apply SADIA hose. Lasix 20 mg IV 1 given. Sustained tachycardia: Resolved No significant improvement despite Lopressor 12.5 mg every 8 hours Hyperthyroidism: TSH 3.24, replacement therapy has been resumed Hyperlipidemia: Home medications were continued to include Zetia and atorvastatin Chronic obstructive pulmonary disease, Tobacco use disorder: Patient started with nicotine patch. Patient counseled on cessation. Duo nebs as needed. Start incentive spirometry Physical deconditioning: Patient may get out of bed with assistance, physical therapy evaluation has been requested DVT Prevention: Lovenox Pt Condition on Discharge: Fair Discharge Disposition: Discharge to SNF Discharge Time: > 30 minutes Discharge Instructions DIET: Follow Instructions for: Heart Healthy Diet Activities you can perform: See Additionl Instruction Other Activity Instructions: PER pt RECS New Medications: Levofloxacin (Levaquin) 750 Mg Tab 750 MG PO DAILY@11 INTRA ABD ABSCESS #14 TAB Metoprolol Tartrate (Metoprolol Tartrate) 25 Mg Tab 12.5 MG PO Q8HR HTN #90 TAB Continued Medications: Atorvastatin (Atorvastatin) 80 Mg Tab 80 MG PO HS Cholesterol Management #30 Ref 0 TAB Divalproex ER (Divalproex ER) 500 Mg Tab 500 MG PO TID Control Seizures #30 Ref 0 TAB Ezetimibe (Zetia) 10 Mg Tab 10 MG PO DAILY #30 Ref 0 TAB Gabapentin (Gabapentin) 300 Mg Cap 300 MG PO TID #90 Ref 0 CAP Levothyroxine (Levothyroxine) 112 Mcg Tab 112 MCG PO DAILY #30 Ref 0 TAB Loratadine (Claritin) 10 Mg Cap 10 MG PO DAILY Allergy Management Ref 0 CAP Omeprazole (Omeprazole) 40 Mg Cap 40 MG PO DAILY #30 Ref 0 CAP Venlafaxine (Effexor) 75 Mg Tab 75 MG PO DAILY #30 Ref 0 TAB Misa Caceres MD Jan 18, 2017 15:35
[2017-01-18] MEDS ORDERED: LISI-519 PO (15:41)
[2017-01-18] MEDS ORDERED: LISINOPRIL 5 MG TAB PO SCH (21:00)
== END 2017-01-18 16:35 | DRG 871 ==
LOC: PHED 07:36 → PHEDA 12:18 → PH3A 14:09 → PHICU 01-11 10:48 → PH3B 01-16 19:00
PROVIDERS: ADMIT Hospitalist; ATTEND Hospitalist
PROC: 0W9H30Z Drainage of Retroperitoneum with Drainage Device, Percutaneous Approach (ICD-10-PCS; principal; 2017-01-09)
PROC: 0W9H30Z Drainage of Retroperitoneum with Drainage Device, Percutaneous Approach (ICD-10-PCS; 2017-01-11)
DX: A41.9 Sepsis, unspecified organism (principal); N15.1 Renal and perinephric abscess; N17.9 Acute kidney failure, unspecified; J44.9 Chronic obstructive pulmonary disease, unspecified; K68.19 Other retroperitoneal abscess; N39.0 Urinary tract infection, site not specified; I10 Essential (primary) hypertension; E78.5 Hyperlipidemia, unspecified; F17.210 Nicotine dependence, cigarettes, uncomplicated; B96.20 Unspecified Escherichia coli [E. coli] as the cause of diseases classified elsewhere; R65.20 Severe sepsis without septic shock; E03.9 Hypothyroidism, unspecified; F41.9 Anxiety disorder, unspecified; F31.9 Bipolar disorder, unspecified; G62.9 Polyneuropathy, unspecified; K59.00 Constipation, unspecified; N39.41 Urge incontinence; R00.0 Tachycardia, unspecified; R60.0 Localized edema; K21.9 Gastro-esophageal reflux disease without esophagitis; Z85.42 Personal history of malignant neoplasm of other parts of uterus; Z87.440 Personal history of urinary (tract) infections; Z88.0 Allergy status to penicillin; Z88.5 Allergy status to narcotic agent; Z88.8 Allergy status to other drugs, medicaments and biological substances
CPT/HCPCS: 49406; 71010; 71275; 74000; 74150; 74177; 74410; 80048; 80053; 81001; 82550; 82565; 83605; 83690; 83735; 84100; 84155; 84443; 84484; 85007; 85025; 85027; 85610; 85652; 85730; 86140; 86850; 86900; 86901; 87015; 87040; 87070; 87077; 87086; 87102; 87116; 87186; 87205; 87206; 87493; 87641; 87804; 93005; 94150; 94640; 94664; 96361; 96365; 96367; 96375; 99152; 99153; C1729; C1769; J1170; J1650; J1885; J1940; J1956; J2250; J2405; J3010; J3370; J7030; J7040; J7050; Q9967